=== PATIENT | female | born 1935 | race Caucasian/White ===

== ENCOUNTER → 2016-04-24 | Outpatient (REF) | payer MEDICARE, MEDICAID ==
[~2016-04-24] MED LIST: /WARF25TA PO; ACET50TA PO; AMILORIDE HCL PO; ASTE137S; AZELASTINE; CALCTAB68 PO; COUM2.5T11 PO; FERG1TAB PO; FOLITAB11 PO; HYDR10TA20 PO; LIDOCAINE CREAM TOP; LORATADINE PO; METH2.5TA PO; MILKSUS PO; MIRA3350 PO; NEURONTIN PO; NORT10SO PO; PERC10TA PO; PERC10TA17 PO; PERCOCET PO; RANITIDINE PO; REQU2TAB3 PO; SENO8.6T10 PO; SIMVPOW2 PO; ULTR50TA PO; XANA0.25 PO; ZOLO100T PO; ZOLO50TA PO
== END ==
LOC: M LAB REF 16:21
PROVIDERS: ATTEND Internal Medicine
DX: M05.70 Rheumatoid arthritis with rheumatoid factor of unspecified site without organ or systems involvement (principal)

== ENCOUNTER → 2016-07-05 | Outpatient (REF) | payer MEDICARE, MEDICAID | LOC: M LAB REF 13:02 | PROVIDERS: ATTEND Internal Medicine | DX: M15.9 Polyosteoarthritis, unspecified (principal); M05.70 Rheumatoid arthritis with rheumatoid factor of unspecified site without organ or systems involvement ==

== ENCOUNTER → 2016-08-22 | Outpatient (REF) | payer MEDICARE, MEDICAID | LOC: M LAB REF 12:17 | PROVIDERS: ATTEND Internal Medicine | DX: M15.9 Polyosteoarthritis, unspecified (principal); M05.70 Rheumatoid arthritis with rheumatoid factor of unspecified site without organ or systems involvement ==

== ENCOUNTER → 2016-10-03 | Outpatient (REF) | payer MEDICARE, MEDICAID | LOC: M LAB REF 12:48 | PROVIDERS: ATTEND Internal Medicine | DX: M15.9 Polyosteoarthritis, unspecified (principal); M05.70 Rheumatoid arthritis with rheumatoid factor of unspecified site without organ or systems involvement ==

== ENCOUNTER → 2016-11-05 | Outpatient (REF) | payer MEDICARE, MEDICAID ==
[~2016-11-05] MED LIST changes: -COUM2.5T11 PO; +COUM2.5T17 PO; -PERC10TA17 PO; +PERC10TA26 PO; -ULTR50TA PO; +ULTR50TA8 PO
== END ==
LOC: M LAB REF 17:29
PROVIDERS: ATTEND Internal Medicine
DX: M15.9 Polyosteoarthritis, unspecified (principal); M05.70 Rheumatoid arthritis with rheumatoid factor of unspecified site without organ or systems involvement

== ENCOUNTER → 2017-04-24 | Outpatient (REF) | payer OTHER, MEDICAID | LOC: M LAB REF 13:50 | DX: R74.9 Abnormal serum enzyme level, unspecified (principal); E88.09 Other disorders of plasma-protein metabolism, not elsewhere classified | CPT/HCPCS: 83520 ==

== ENCOUNTER → 2019-03-03 | Outpatient (REF) | payer OTHER, MEDICAID ==
[~2019-03-03] MED LIST changes: -/WARF25TA PO; -ACET50TA PO; +COUM1TAB18 PO; -FERG1TAB PO; +FERG27TA PO; +MAPA500T17 PO; +METH2.5T48 PO; -METH2.5TA PO; +MILK120011 PO; -MILKSUS PO
[2019-03-03 14:00] LABS: PERCENT SATURATION 15.9 % (13.2-45.0)
== END ==
LOC: M LAB REF 12:41
PROVIDERS: ATTEND Internal Medicine
DX: D50.9 Iron deficiency anemia, unspecified (principal)

== ENCOUNTER → 2020-08-12 | Outpatient (REF) | payer MEDICARE, MEDICAID ==
[2020-08-12 18:10] LABS: PERCENT SATURATION 18.6 % (13.2-45.0)
== END ==
LOC: M LAB REF 16:42
PROVIDERS: ATTEND Internal Medicine
DX: D50.9 Iron deficiency anemia, unspecified (principal)

== ENCOUNTER 2021-03-03 12:29 | Inpatient (IN) | payer MEDICARE, MEDICAID ==
[~2021-03-03] VITALS: Ht 154.9 cm; Wt 81.9 kg
[2021-03-03 13:10] LABS: BASO % 0.1 % (0.0-1.0); HEMATOCRIT 43.6 % (36.0-47.0); HEMOGLOBIN 13.9 g/dl (12.0-15.5); LYMPH # 0.6 10^3/uL (1.5-5.0); LYMPH % 2.2 % (24.0-44.0); MEAN CORPUSCULAR HEMOGLOBIN 28.3 pg (27.0-33.0); MEAN CORPUSCULAR HGB CONC 31.9 g/dl (32.0-36.5); MEAN CORPUSCULAR VOLUME 88.6 fl (80.0-96.0); MONO # 0.7 10^3/uL (0.0-0.8); MONO % 2.7 % (2.0-8.0); NEUTROPHILS # 25.3 10^3/uL (1.5-8.5); PLATELET COUNT, AUTOMATED 531 10^3/uL (150-450); RED BLOOD COUNT 4.92 10^6/uL (4.00-5.40)
--- NOTE | 2021-03-03 13:11 | REP ---
INDICATION: Syncope COMPARISON: None. TECHNIQUE: Axial noncontrast images from the skull base to the thoracic inlet with coronal reformations. This CT examination was performed using the following dose reduction techniques: Automated exposure control, adjustment of mA and/or kv according to the patient's size, and use of iterative reconstruction technique. FINDINGS: Atrophy with periventricular leukomalacia and microvascular ischemic changes are appreciated. The ventricles and sulci are symmetric. Lester-white differentiation is maintained. There is no evidence for acute intracranial hemorrhage, mass/mass effect, pathology or infarction. No extra-axial fluid collection. Calvarium is intact. Paranasal sinuses and mastoid air cells are clear. IMPRESSION: Atrophy and microvascular ischemic changes. No acute intracranial hemorrhage, infarction, or mass/mass effect. <Electronically signed by Collins Chapman > 03/03/21 [id number]
--- NOTE | 2021-03-03 13:14 | REP ---
INDICATION: Syncope COMPARISON: None. TECHNIQUE: Axial noncontrast images from the skull base to the thoracic inlet with coronal and sagittal re-formations This CT examination was performed using the following dose reduction techniques: Automated exposure control, adjustment of mA and/or kv according to the patient's size, and use of iterative reconstruction technique. FINDINGS: Age-related degenerative changes primarily involving C5-6. Alignment is relatively maintained. There is no evidence for acute fracture/compression injury or subluxation. Spinal canal is patent. Posterior elements demonstrate facet arthropathy. Spinous processes are intact. Paravertebral soft tissues are normal. IMPRESSION: Multilevel degenerative changes primarily involving C5-6. No acute fracture/compression injury or acute subluxation. <Electronically signed by Collins Chapman > 03/03/21 0230
[2021-03-03 13:45] LABS: CK-MB VALUE MASS 7.4 NG/ML (<3.6); MB/CK RELATIVE INDEX 0.95 (< OR =4); TROPONIN I 0.02 NG/ML (< 0.10)
[2021-03-03 13:51] LABS: CALCIUM LEVEL 9.2 MG/DL (8.8-10.2); CREATININE FOR GFR 1.14 MG/DL (0.55-1.30); FREE T4 1.47 NG/DL (0.76-1.46); GLOMERULAR FILTRATION RATE 48.2 (>32); POTASSIUM SERUM 3.1 MEQ/L (3.5-5.1); THYROID STIMULATING HORMONE 2.92 uIU/ML (0.358-3.740)
--- NOTE | 2021-03-03 13:56 | REP ---
INDICATION: Syncope/near-syncope;trauma COMPARISON: None. TECHNIQUE: AP, lateral, bilateral oblique views of the right and left knee. FINDINGS: Bilateral arthroplasty noted along with age-related osteopenia. There is no evidence for acute fracture or dislocation. No obvious effusion. IMPRESSION: No evidence for acute fracture or dislocation. <Electronically signed by Collins Chapman > 03/03/21 2336
--- NOTE | 2021-03-03 13:57 | REP ---
INDICATION: Syncope/near-syncope;trauma COMPARISON: None. TECHNIQUE: AP and lateral views of the left humerus. FINDINGS: Age-related degenerative changes at the shoulder joint. No acute fracture or dislocation. No subcutaneous emphysema or foreign body. IMPRESSION: . No acute fracture or dislocation. <Electronically signed by Collins Chapman > 03/03/21 0122
--- NOTE | 2021-03-03 13:58 | REP ---
INDICATION: Syncope/near-syncope COMPARISON: 06/24/2014 TECHNIQUE: Portable AP view of the chest FINDINGS: Cardiac silhouette is upper limits of normal. Lung rodrigues demonstrate advanced emphysematous changes. Superimposed right lower lobe airspace disease and small pleural effusion cannot be excluded. No pneumothorax. Skeletal structures demonstrate osteopenia and degenerative changes. IMPRESSION: Right lower lobe airspace disease and possible small pleural effusion. <Electronically signed by Collins Chapman > 03/03/21 [id number]
--- NOTE | 2021-03-03 14:00 | REP ---
INDICATION: Syncope/near-syncope;trauma. COMPARISON: None TECHNIQUE: Four views FINDINGS: There is no acute fracture, dislocation, subluxation, or joint effusion. IMPRESSION: No evidence of an acute osseous abnormality <Electronically signed by Payam Redman > 03/03/21 0497
--- NOTE | 2021-03-03 14:01 | REP ---
INDICATION: Syncope/near-syncope;trauma COMPARISON: None. TECHNIQUE: AP and lateral left forearm FINDINGS: Advanced degenerative changes at the wrist. Radius and ulna appear intact and without acute fracture or dislocation. IMPRESSION: Advanced degenerative changes at the wrist. No acute fracture or dislocation. <Electronically signed by Collins Chapman > 03/03/21 [id number]
--- NOTE | 2021-03-03 14:15 | REP ---
INDICATION: Syncope/near-syncope. COMPARISON: None. TECHNIQUE: Neutral and frog-lateral views of the right and left hip. 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 Left hip: Severe arthritic changes and chronic deformity including complete loss of normal joint space and chronic malpositioning. No evidence for acute fracture or dislocation. IMPRESSION: No acute fracture or dislocation. <Electronically signed by Collins Chapman > 03/03/21 3478
--- OUTSIDE RECORDS SUMMARY | 2021-03-03 14:18 | CCD | Continuity of Care Document ---
Author Author Sallie LENTZ Organization Unknown Address [address] [facility] [address] [place] [address] Phone [phone] Care Team Providers [employer] Repairer Name Role Phone Sharita Jensen AUTM [phone] Kit Garcia MD AUTM [phone] Jeanette Lentz DO AUTM Unavailable Isidoro De Jesus DPM AUTM [phone] [facility] - Test Preparation Tutor AUTM [phone] Problems Active Problems Provider Date Hyperlipidemia Jeanette Lentz DO Onset: 02/27/2011 Degenerative joint disease of pelvis Jeanette Lentz DO Ons et: 02/27/2011 Osteoarthritis of knee Jeanette Lentz DO Onset: 02/27/2011 Generalized anxiety disorder Jeanette Lentz DO Onset: 02/13 Social History Type Date Description Comments Sex Unknown ETOH Use Denies alcohol use Tobacco Use Start: Unknown End: Unknown Patient is a former smoker SMOKED X 10 YRS, QUIT 1970 Allergies and adverse reactions Active Allergies Criticality Reaction | Severity Comments Date Flu Virus Vaccine Unable to assess criticality REDNESS AT INJECTION SITE, PER PT 01/27/2010 Inactive Allergies NKDA Unable to assess criticality 04/20/2009 Medications Active Medications SIG Qnty Indications Ordering Provide r Date Torsemide 20mg Tablets 2 by mouth every day 60tabs Jeanette Lentz DO 02/17/2021 Potassium Chloride ER 10Meq Tablet s ER take two tablets by mouth once a day 120tabs Jeanette Lentz DO 06/24/2020 Calcium + D3 600-200 Tablets 1 po qd Jeanette Lentz DO 03/03/2019 Famotidine 20mg Tablets Take One Tablet By Mouth Every Day 30tabs Jeanette LentzDO 03/03/2019 Pramipexole Dihydrochloride 1mg Ta blets Take One Tablet By Mouth AT Night Before Bedtime 30tabs Jeanette Lentz,DO 11/17/2018 Sertraline HCL 50mg Tablets Take One Tablet By Mouth Every Day 30tabs Jeanette Lentz,DO 2018 Prednisone 5mg Tablets Take One Tablet By Mouth Every Other Day 45tabs Jeanette LentzDO 02/14/2018 Metolazone 2.5mg Tablets take 1 tablet by mouth every saturday and saturday 8tabs Jeanette LentzDO Attends [facility] Large M [facility] certanty brand change three times a day and as needed 100units R32 Jeanette LentzDO 09/23/2015 N39.41 N18.9 Spironolactone 25mg Tablets Take One Tablet By Mouth Twice A Day 60tabs Jeanette LentzDO 12/2015 Compression Stockings 20-30 bilateral knee-high compression stockings. 20-30mm dx: q82.0 1units Beau Alan D.O. 01/25/2015 Gabapentin 400mg Capsules Take One Capsule By Mouth Three Times A Day 90caps Jeanette LentzDO 01/13 Voltaren 1% Gel apply up to 4 grams three times a day as needed 60gm Jeanette LentzDO 12/15/2014 Tylenol 325mg Tablets 2 tabs every 4 hours as needed pain or fever Jeanette LentzDO 07/02/19 15 Folic Acid 1mg Tablets Take One Tablet By Mouth Every Day 30tabs Jeanette LentzDO 07/01/2014 Ferrous Gluconate 324(38Fe) mg Tab lets Take One Tablet By Mouth Every Day 30tabs Gerardo Xiao O 11/20/2013 Loratadine 10mg Tablets take one tablet by mouth every day 90tabs Osmar Hagen M.D. 04/20/2009 Arava 20mg Tablets 1 b y mouth every day 30tabs Jeanette LentzDO Immunizations CPT Code Status Date Vaccine Lot # [id number] Given 07/05/2016 Pneumovax 23 [id number] Refused 02/17/2021 Influenza Vaccin e Quadrivalent Preser/Antibiotic Free Im Use [id number] Refused 03/11/2017 Influenza Vaccin e Quadrivalent Preser/Antibiotic Free Im Use Vital Signs Date Vital Result Comment 02/17/2021 9:30am BP Systolic 102 mmHg BP Diastolic 60 mmHg Heart Rate 67 /min Height 60 inches 5'0" 08/12/2020 9:25am BP Systolic 102 mmHg BP Diastolic 60 mmHg Heart Rate 72 /min Height 60 inches 5'0" Weight 184.00 lb wt at home O2 % BldC Oximetry 91 % RM Air BMI (Body Mass Index) 35.9 kg/m2 Results Test Acquired Date Facility Test Result H/L Range Note Laboratory test finding 02/17/2021 kaleb Hernández Systematic Theology Professor: Dr Tom Ellis [place] [id number] [phone] B-Type Natriuretic Peptide 74.4 pg/mL 0.0 - 100.0 Procedures Date Code Description Status 01/10/2021 10124 Chronic Care MGMT 20 Mins Clinical Staff Time Per Calendar Month Completed 11/14/2020 09610 Chronic Care MGMT 20 Mins Clinical Staff Time Per Calendar Month Completed 10/13/2020 13142 Chronic Care MGMT 20 Mins Clinical Staff Time Per Calendar Month Completed 09/27/2020 36808 Complex Chronic Care MGMT Servic e Ea Addl 30 Min Completed 09/27/2020 77503 Complex Chronic Care Management SVC 1St 60 Min Completed 09/09/2020 93463 Complex Chronic Care MGMT Servic e Ea Addl 30 Min Completed 09/09/2020 15540 Complex Chronic Care Management SVC 1St 60 Min Completed 10/06/2019 426591345 Diabetic Retinal Eye Exam Comple isis 08/07/2017 [id number] Diabetic Retinal Eye Exam Comple isis 07/19/2017 [id number] Diabetic Retinal Eye Exam Comple isis 07/11/2017 520899204 Diabetic Retinal Eye Exam Comple [facility] 01/03/2016 398043259 Diabetic Foot Exam Completed 03/01/2010 [id number] Mammogram Completed 01/05/2010 [id number] Colonoscopy Completed 02/25/2009 [id number] Mammogram Completed 07/31/2006 [id number] Bone Mineral Density Test Comple [facility] Medical Devices Description No Information Available Encounters Description No Information Available Assessments Date Code Description Provider 02/17/2021 I50.33 Acute on chronic diastolic (jose estive) heart failure Jeanette Lentz,DO 02/17/2021 M06.9 Rheumatoid arthritis, unspecifie d Jeanette Lentz,DO 02/17/2021 G25.81 Restless legs syndrome Jeanette stevenson,DO 02/17/2021 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 Jeanette Lentz,DO 02/17/2021 D50.9 Iron deficiency anemia, unspecif ied Jeanette Lentz,DO 02/17/2021 N18.31 Chronic kidney disease, stage 3a Jeanette Lentz,DO 02/17/2021 M15.9 Polyosteoarthritis, unspecified Jeanette Lentz,DO 02/17/2021 R26.2 Difficulty in walking, not elsew here classified Jeanette Lentz,DO 01/10/2021 E55.9 Vitamin D deficiency, unspecifie d Jeanette Lentz,DO 01/10/2021 E78.5 Hyperlipidemia, unspecified Cesar ahsan Lentz,DO 01/10/2021 M06.9 Rheumatoid arthritis, unspecifie d Jeanette Lentz,DO 11/14/2020 I50.32 Chronic diastolic (congestive) h eart failure Jeanette Lentz,DO 11/14/2020 E78.5 Hyperlipidemia, unspecified Cesar a Carmella,DO 11/14/2020 G25.81 Restless legs syndrome Jeanette stevenson,DO 10/13/2020 E55.9 Vitamin D deficiency, unspecifie d Jeanette Lentz,DO 10/13/2020 I50.32 Chronic diastolic (congestive) h eart failure Jeanette Lentz,DO 10/13/2020 E78.5 Hyperlipidemia, unspecified Cesar a Carmella,DO 09/27/2020 E55.9 Vitamin D deficiency, unspecifie d Jeanette Lentz,DO 09/27/2020 I50.32 Chronic diastolic (congestive) h eart failure Jeanette Lentz,DO 09/27/2020 E78.5 Hyperlipidemia, unspecified Cesar a Carmella,DO 09/27/2020 G25.81 Restless legs syndrome Jeanette Rust ,DO 09/09/2020 E55.9 Vitamin D deficiency, unspecifie d Jeanette Lentz DO 09/09/2020 I50.32 Chronic diastolic (congestive) h eart failure Jeanette Lentz DO 09/09/2020 E78.5 Hyperlipidemia, unspecified Cesar Lentz DO 09/09/2020 G25.81 Restless legs syndrome Jeanette stevenson DO Plan of Treatment Future Appointment(s):* 03/07/2021 10:00 am - Jeanette Lentz DO at [facility] 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
--- OUTSIDE RECORDS SUMMARY | 2021-03-03 14:18 | CCD ---
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 Name Role Phone Carmella, Jeanette DO Unavailable Unavailable Carmella, Jeanette DO Unavailable Unavailable Carmella, Jeanette DO Unavailable Unavailable Carmella, Jeanette DO Unavailable Unavailable Carmella, Jeanette DO Unavailable Unavailable Carmella, Jeanette DO Unavailable Unavailable Carmella, Jeanette DO Unavailable Unavailable Carmella, Jeanette DO Unavailable Unavailable Carmella, Jeanette DO Unavailable Unavailable Carmella, Jeanette DO Unavailable Unavailable Carmella, Jeanette DO Unavailable Unavailable Carmella, Jeanette DO Unavailable Unavailable Carmella, Jeanette DO Unavailable Unavailable Carmella, Jeanette DO Unavailable Unavailable Carmella, Jeanette DO Unavailable Unavailable Carmella, Jeanette DO Unavailable Unavailable Carmella, Jeanette DO Unavailable Unavailable Carmella, Jeanette DO Unavailable Unavailable Carmella, Jeanette DO Unavailable Unavailable Carmella, Jeanette DO Unavailable Unavailable Carmella, Jeanette DO Unavailable Unavailable Carmella, Jeanette DO Unavailable Unavailable Carmella, Jeanette DO Unavailable Unavailable Carmella, Jeanette DO Unavailable Unavailable Carmella, Jeanette DO Unavailable Unavailable Carmella, Jeanette DO Unavailable Unavailable Carmella, Jeanette DO Unavailable Unavailable Carmella, Jeanette DO Unavailable Unavailable Carmella, Jeanette DO Unavailable Unavailable Carmella, Jeanette DO Unavailable Unavailable Carmella, Jeanette DO Unavailable Unavailable Carmella, Jeanette DO Unavailable Unavailable Carmella, Jeanette DO Unavailable Unavailable Carmella, Jeanette DO Unavailable Unavailable Carmella, Jeanette DO Unavailable Unavailable Carmella, Jeanette DO Unavailable Unavailable Carmella, Jeanette DO Unavailable Unavailable Carmella, Jeanette DO Unavailable Unavailable Carmella, Jeanette DO Unavailable Unavailable Carmella, Jeanette DO Unavailable Unavailable Carmella, Jeanette DO Unavailable Unavailable Carmella, Jeanette DO Unavailable Unavailable Carmella, Jeanette DO Unavailable Unavailable Carmella, Jeanette DO Unavailable Unavailable Carmella, Jeanette DO Unavailable Unavailable Carmella, Jeanette DO Unavailable Unavailable Carmella, Jeanette DO Unavailable Unavailable Carmella, Jeanette DO Unavailable Unavailable Carmella, Jeanette DO Unavailable Unavailable Carmella, Jeanette DO Unavailable Unavailable Carmella, Jeanette DO Unavailable Unavailable Carmella, Jeanette DO Unavailable Unavailable Carmella, Jeanette DO Unavailable Unavailable Carmella, Jeanette DO Unavailable Unavailable Carmella, Jeanette DO Unavailable Unavailable Carmella, Jeanette DO Unavailable Unavailable Carmella, Jeanette DO Unavailable Unavailable Carmella, Jeanette DO Unavailable Unavailable Carmella, Jeanette DO Unavailable Unavailable Carmella, Jeanette DO Unavailable Unavailable Carmella, Jeanette DO Unavailable Unavailable Carmella, Jeanette DO Unavailable Unavailable Carmella, Jeanette DO Unavailable Unavailable Carmella, Jeanette DO Unavailable Unavailable Carmella, Jeanette DO Unavailable Unavailable Acrmella, Jeanette DO Unavailable Unavailable Carmella, Jeanette DO Unavailable Unavailable Carmella, Jeanette DO Unavailable Unavailable Carmella, Jeanette DO Unavailable Unavailable Carmella, Jeanette DO Unavailable Unavailable Carmella, Jeanette DO Unavailable Unavailable Carmella, Jeanette DO Unavailable Unavailable Carmella, Jeanette DO Unavailable Unavailable Carmella, Jeanette DO Unavailable Unavailable Re-disclosure Warning The records that you are about to access may contain information from federally-assisted alcohol or drug abuse programs. If such information is present, then the following federally mandated warning applies: This information has been disclosed to you from records protected by federal confidentiality rules (42 CFR part 2). The federal rules prohibit you from making any further disclosure of this information unless further disclosure is expressly permitted by the written consent of the person to whom it pertains or as otherwise permitted by 42 CFR part 2. A general authorization for the release of medical or other information is NOT sufficient for this purpose. The Federal rules restrict any use of the information to criminally investigate or prosecute any alcohol or drug abuse patient.The records that you are about to access may contain highly sensitive health information, the redisclosure of which is protected by Article 27-F of the [facility] Public Health law. If you continue you may have access to information: Regarding HIV / AIDS; Provided by facilities licensed or operated by the [facility] Office of Mental Health; or Provided by the [facility] Office for People With Developmental Disabilities. If such information is present, then the following [facility] mandated warning applies: This information has been disclosed to you from confidential records which are protected by state law. State law prohibits you from making any further disclosure of this information without the specific written consent of the person to whom it pertains, or as otherwise permitted by law. Any unauthorized further disclosure in violation of state law may result in a fine or [place] [facility] sentence or both. A general authorization for the release of medical or other information is NOT sufficient authorization for further disc losure. Family History Family Member Name Family Member Gender Family Member Status Date o f Status Description Data Source(s) Unknown Male Problem [facility] ([facility]) Encounters Encounter Providers Location Date Indications Data Source(s ) Outpatient Attender: Jeanette Zamora 08/12 09:40:00 AM EDT [facility] ([facility] ) Outpatient Attender: Jeanette Zamora 02/01 01:30:00 PM EDT [facility] ([facility] ) Immunizations Vaccine Date Status Description Data Source(s) Influenza, injectable, MDCK, preservative free, poppy valent 02/17/2021 09:33:00 AM EDT completed [facility]) COVID-19 VACCINE Moderna 08/31/2020 12:00:00 AM EDT completed IASIIS Vaccine Series Complete: YESThis Data wa s Submitted to [facility] Via [employer]. COVID-19 VACCINE Moderna 08/03/2020 12:00:00 AM EDT completed IASIIS Vaccine Series Complete: NOThis Data was Submitted to [facility] Via [employer]. Medications Medication Brand Name Start Date Product Form Dose Route Admi nistrative Instructions Pharmacy Instructions Status Indications Reaction Description Data Source(s) Potassium Chloride 10 MEQ Extended Release Oral Tablet POTAS SIUM CHLORIDE 02/28/2021 12:00:00 AM EST tablet extended release 120 TAKE 2 TABLETS BY MOUTH ONCE A DAY TAKE 2 TABLETS BY MOUTH ONCE A DAY SOLD: 02/28/2021 [facility] torsemide 20 MG Oral Tablet Torsemide 02/17/2021 12:00:00 AM EDT ORAL active [facility] ([facility]) 20 mg 02/17/2021 12:00:00 AM EDT tablet 60 TAKE TWO TABLETS BY MOUTH EVERY DAY TAKE TWO TABLETS BY MOUTH EVERY DAY SOLD: 02/18/2021 [facility] 2.5 mg 02/17/2021 12:00:00 AM EDT tablet 8 TAKE 1 TABLET BY MOUTH EVERY SATURDAY AND SATURDAY TAKE 1 TABLET BY MOUTH EVERY SATURDAY AND SATURDAY SOLD: 02/18/2021 [facility] 50 mg 01/10/2021 12:00:00 AM EDT tablet 30 TAKE ONE TABLET BY MOUTH EVERY DAY TAKE ONE TABLET BY MOUTH EVERY DAY SOLD: 01/10/2021 [facility] 400 mg 01/10/2021 12:00:00 AM EDT capsule 90 TAKE ONE CAPSULE BY MOUTH THREE TIMES A DAY TAKE ONE CAPSULE BY MOUTH THREE TIMES A DAY SOLD: 01/10/2021 [facility] 25 mg 01/10/2021 12:00:00 AM EDT tablet 60 TAKE ONE TABLET BY MOUTH TWICE A DAY TAKE ONE TABLET BY MOUTH TWICE A DAY SOLD: 02/07/2021 [facility] 50 mg 01/10/2021 12:00:00 AM EDT tablet 30 TAKE ONE TABLET BY MOUTH EVERY DAY TAKE ONE TABLET BY MOUTH EVERY DAY SOLD: 02/07/2021 [facility] 25 mg 01/10/2021 12:00:00 AM EDT tablet 60 TAKE ONE TABLET BY MOUTH TWICE A DAY TAKE ONE TABLET BY MOUTH TWICE A DAY SOLD: 01/10/2021 [facility] 400 mg 01/10/2021 12:00:00 AM EDT capsule 90 TAKE ONE CAPSULE BY MOUTH THREE TIMES A DAY TAKE ONE CAPSULE BY MOUTH THREE TIMES A DAY SOLD: 02/07/2021 [facility] 5 mg 12/30/2020 12:00:00 AM EDT tablet 45 TAKE ONE TABLET BY MOUTH EVERY OTHER DAY TAKE ONE TABLET BY MOUTH EVERY OTHER DAY SOLD: 01/01/2021 [facility] 324 mg (38 mg iron) 12/15/2020 12:00:00 AM EDT tablet 30 TAKE ONE TABLET BY MOUTH EVERY DAY TAKE ONE TABLET BY MOUTH EVERY DAY SOLD: 02/19/2021 [facility] 324 mg (38 mg iron) 12/15/2020 12:00:00 AM EDT tablet 30 TAKE ONE TABLET BY MOUTH EVERY DAY TAKE ONE TABLET BY MOUTH EVERY DAY SOLD: 01/12/2021 [facility] 324 mg (38 mg iron) 12/15/2020 12:00:00 AM EDT tablet 30 TAKE ONE TABLET BY MOUTH EVERY DAY TAKE ONE TABLET BY MOUTH EVERY DAY SOLD: 01/25/2021 [facility] 324 mg (38 mg iron) 12/15/2020 12:00:00 AM EDT tablet 30 TAKE ONE TABLET BY MOUTH EVERY DAY TAKE ONE TABLET BY MOUTH EVERY DAY SOLD: 12/15/2020 [facility] Famotidine 20 MG Oral Tablet FAMOTIDINE 12/13/2020 12:00:00 AM EDT tab let 30 TAKE ONE TABLET BY MOUTH EVERY DAY TAKE ONE TABLET BY MOUTH EVERY DAY SOLD: 01/10/2021 [facility] Famotidine 20 MG Oral Tablet FAMOTIDINE 12/13/2020 12:00:00 AM EDT tab let 30 TAKE ONE TABLET BY MOUTH EVERY DAY TAKE ONE TABLET BY MOUTH EVERY DAY SOLD: 12/13/2020 [facility] Famotidine 20 MG Oral Tablet FAMOTIDINE 12/13/2020 12:00:00 AM EDT tab let 30 TAKE ONE TABLET BY MOUTH EVERY DAY TAKE ONE TABLET BY MOUTH EVERY DAY SOLD: 02/07/2021 [facility] Potassium Chloride 10 MEQ Extended Release Oral Tablet POTAS SIUM CHLORIDE 12/12/2020 12:00:00 AM EDT tablet extended release 120 TAKE TWO TABLETS BY MOUTH TWICE A DAY TAKE TWO TABLETS BY MOUTH TWICE A DAY SOLD: 12/13/2020 [facility] Potassium Chloride 10 MEQ Extended Release Oral Tablet POTAS SIUM CHLORIDE 12/12/2020 12:00:00 AM EDT tablet extended release 120 TAKE TWO TABLETS BY MOUTH TWICE A DAY TAKE TWO TABLETS BY MOUTH TWICE A DAY SOLD: 02/07/2021 [facility] Potassium Chloride 10 MEQ Extended Release Oral Tablet POTAS SIUM CHLORIDE 12/12/2020 12:00:00 AM EDT tablet extended release 120 TAKE TWO TABLETS BY MOUTH TWICE A DAY TAKE TWO TABLETS BY MOUTH TWICE A DAY SOLD: 01/10/2021 [facility] 1 mg 11/03/2020 12:00:00 AM EDT tablet 30 TAKE ONE TABLET BY MOUTH EVERY DAY TAKE ONE TABLET BY MOUTH EVERY DAY SOLD: 11/03/2020 [facility] 1 mg 11/03/2020 12:00:00 AM EDT tablet 30 TAKE ONE TABLET BY MOUTH EVERY DAY TAKE ONE TABLET BY MOUTH EVERY DAY SOLD: 01/29/2021 [facility] 1 mg 11/03/2020 12:00:00 AM EDT tablet 30 TAKE ONE TABLET BY MOUTH EVERY DAY TAKE ONE TABLET BY MOUTH EVERY DAY SOLD: 02/26/2021 [facility] 1 mg 11/03/2020 12:00:00 AM EDT tablet 30 TAKE ONE TABLET BY MOUTH EVERY DAY TAKE ONE TABLET BY MOUTH EVERY DAY SOLD: 12/29/2020 [facility] 1 mg 11/03/2020 12:00:00 AM EDT tablet 30 TAKE ONE TABLET BY MOUTH EVERY DAY TAKE ONE TABLET BY MOUTH EVERY DAY SOLD: 12/01/2020 [facility] 2.5 mg 10/31/2020 12:00:00 AM EDT tablet 4 TAKE 1 TABLET BY MOUTH EVERY SATURDAY TAKE 1 TABLET BY MOUTH EVERY SATURDAY SOLD: 11/22/2020 [facility] 2.5 mg 10/31/2020 12:00:00 AM EDT tablet 4 TAKE 1 TABLET BY MOUTH EVERY SATURDAY TAKE 1 TABLET BY MOUTH EVERY SATURDAY SOLD: 01/03/2021 [facility] 2.5 mg 10/31/2020 12:00:00 AM EDT tablet 4 TAKE 1 TABLET BY MOUTH EVERY SATURDAY TAKE 1 TABLET BY MOUTH EVERY SATURDAY SOLD: 11/01/2020 [facility] 2.5 mg 10/31/2020 12:00:00 AM EDT tablet 4 TAKE 1 TABLET BY MOUTH EVERY SATURDAY TAKE 1 TABLET BY MOUTH EVERY SATURDAY SOLD: 12/13/2020 [facility] 1 mg 10/13/2020 12:00:00 AM EDT tablet 30 TAKE ONE TABLET BY MOUTH AT NIGHT BEFORE BEDTIME TAKE ONE TABLET BY MOUTH AT NIGHT BEFORE BEDTIME SOLD: 02/07/2021 [facility] 1 mg 10/13/2020 12:00:00 AM EDT tablet 30 TAKE ONE TABLET BY MOUTH AT NIGHT BEFORE BEDTIME TAKE ONE TABLET BY MOUTH AT NIGHT BEFORE BEDTIME SOLD: 01/10/2021 [facility] 1 mg 10/13/2020 12:00:00 AM EDT tablet 30 TAKE ONE TABLET BY MOUTH AT NIGHT BEFORE BEDTIME TAKE ONE TABLET BY MOUTH AT NIGHT BEFORE BEDTIME SOLD: 10/13/2020 [facility] 1 mg 10/13/2020 12:00:00 AM EDT tablet 30 TAKE ONE TABLET BY MOUTH AT NIGHT BEFORE BEDTIME TAKE ONE TABLET BY MOUTH AT NIGHT BEFORE BEDTIME SOLD: 12/13/2020 [facility] 1 mg 10/13/2020 12:00:00 AM EDT tablet 30 TAKE ONE TABLET BY MOUTH AT NIGHT BEFORE BEDTIME TAKE ONE TABLET BY MOUTH AT NIGHT BEFORE BEDTIME SOLD: 11/13/2020 [facility] 80 mg 10/11/2020 12:00:00 AM EDT tablet 120 TAKE 1TAB.BY MOUTH 2X/DAY & FOR INCREASED EDEMA TAKE EXTRA DOSE EVERY OTHER DAY TAKE 1TAB.BY MOUTH 2X/DAY & FOR INCREASED EDEMA TAKE EXTRA DOSE EVERY OTHER DAY SOLD: 12/20/2020 [facility] 80 mg 10/11/2020 12:00:00 AM EDT tablet 120 TAKE 1TAB.BY MOUTH 2X/DAY & FOR INCREASED EDEMA TAKE EXTRA DOSE EVERY OTHER DAY TAKE 1TAB.BY MOUTH 2X/DAY & FOR INCREASED EDEMA TAKE EXTRA DOSE EVERY OTHER DAY SOLD: 10/11/2020 [facility] Potassium Chloride 10 MEQ Extended Release Oral Tablet POTAS SIUM CHLORIDE 09/17/2020 12:00:00 AM EDT tablet extended release 120 TAKE TWO TABLETS BY MOUTH TWICE A DAY TAKE TWO TABLETS BY MOUTH TWICE A DAY SOLD: 09/17/2020 [facility] 400 mg 09/17/2020 12:00:00 AM EDT capsule 90 TAKE ONE CAPSULE BY MOUTH THREE TIMES A DAY TAKE ONE CAPSULE BY MOUTH THREE TIMES A DAY SOLD: 12/13/2020 [facility] 400 mg 09/17/2020 12:00:00 AM EDT capsule 90 TAKE ONE CAPSULE BY MOUTH THREE TIMES A DAY TAKE ONE CAPSULE BY MOUTH THREE TIMES A DAY SOLD: 10/16/2020 [facility] Potassium Chloride 10 MEQ Extended Release Oral Tablet POTAS SIUM CHLORIDE 09/17/2020 12:00:00 AM EDT tablet extended release 120 TAKE TWO TABLETS BY MOUTH TWICE A DAY TAKE TWO TABLETS BY MOUTH TWICE A DAY SOLD: 11/13/2020 [facility] 400 mg 09/17/2020 12:00:00 AM EDT capsule 90 TAKE ONE CAPSULE BY MOUTH THREE TIMES A DAY TAKE ONE CAPSULE BY MOUTH THREE TIMES A DAY SOLD: 09/17/2020 [facility] 400 mg 09/17/2020 12:00:00 AM EDT capsule 90 TAKE ONE CAPSULE BY MOUTH THREE TIMES A DAY TAKE ONE CAPSULE BY MOUTH THREE TIMES A DAY SOLD: 11/13/2020 [facility] Potassium Chloride 10 MEQ Extended Release Oral Tablet POTAS SIUM CHLORIDE 09/17/2020 12:00:00 AM EDT tablet extended release 120 TAKE TWO TABLETS BY MOUTH TWICE A DAY TAKE TWO TABLETS BY MOUTH TWICE A DAY SOLD: 10/16/2020 [facility] 5 mg 07/07/2020 12:00:00 AM EDT tablet 45 TAKE ONE TABLET BY MOUTH EVERY OTHER DAY TAKE ONE TABLET BY MOUTH EVERY OTHER DAY SOLD: 07/07/2020 [facility] 5 mg 07/07/2020 12:00:00 AM EDT tablet 45 TAKE ONE TABLET BY MOUTH EVERY OTHER DAY TAKE ONE TABLET BY MOUTH EVERY OTHER DAY SOLD: 09/29/2020 [facility] 50 mg 06/28/2020 12:00:00 AM EDT tablet 30 TAKE ONE TABLET BY MOUTH EVERY DAY TAKE ONE TABLET BY MOUTH EVERY DAY SOLD: 07/26/2020 [facility] 50 mg 06/28/2020 12:00:00 AM EDT tablet 30 TAKE ONE TABLET BY MOUTH EVERY DAY TAKE ONE TABLET BY MOUTH EVERY DAY SOLD: 10/18/2020 [facility] 50 mg 06/28/2020 12:00:00 AM EDT tablet 30 TAKE ONE TABLET BY MOUTH EVERY DAY TAKE ONE TABLET BY MOUTH EVERY DAY SOLD: 08/23/2020 [facility] 50 mg 06/28/2020 12:00:00 AM EDT tablet 30 TAKE ONE TABLET BY MOUTH EVERY DAY TAKE ONE TABLET BY MOUTH EVERY DAY SOLD: 11/15/2020 [facility] 50 mg 06/28/2020 12:00:00 AM EDT tablet 30 TAKE ONE TABLET BY MOUTH EVERY DAY TAKE ONE TABLET BY MOUTH EVERY DAY SOLD: 09/20/2020 [facility] 50 mg 06/28/2020 12:00:00 AM EDT tablet 30 TAKE ONE TABLET BY MOUTH EVERY DAY TAKE ONE TABLET BY MOUTH EVERY DAY SOLD: 12/13/2020 [facility] 50 mg 06/28/2020 12:00:00 AM EDT tablet 30 TAKE ONE TABLET BY MOUTH EVERY DAY TAKE ONE TABLET BY MOUTH EVERY DAY SOLD: 06/28/2020 [facility] Potassium Chloride 10 MEQ Extended Release Oral Tablet POTAS SIUM CHLORIDE 06/24/2020 12:00:00 AM EST tablet extended release 120 TAKE TWO TABLETS BY MOUTH TWICE A DAY TAKE TWO TABLETS BY MOUTH TWICE A DAY SOLD: 06/24/2020 [facility] Potassium Chloride 10 MEQ Extended Release Oral Tablet Potas sium Chloride ER 06/24/2020 12:00:00 AM EST ORAL active [facility] ([facility]) 80 mg 06/24/2020 12:00:00 AM EST tablet 120 TAKE 1 TAB.BY MOUTH 2X/DAY;FOR INCREASED EDEMA TAKE EXTRA DOSE OF FUROSEMIDE EVERY OTHER DAY TAKE 1 TAB.BY MOUTH 2X/DAY;FOR INCREASED EDEMA TAKE EXTRA DOSE OF FUROSEMIDE EVERY OTHER DAY SOLD: 06/26/2020 [facility] 80 mg 06/24/2020 12:00:00 AM EST tablet 120 TAKE 1 TAB.BY MOUTH 2X/DAY;FOR INCREASED EDEMA TAKE EXTRA DOSE OF FUROSEMIDE EVERY OTHER DAY TAKE 1 TAB.BY MOUTH 2X/DAY;FOR INCREASED EDEMA TAKE EXTRA DOSE OF FUROSEMIDE EVERY OTHER DAY SOLD: 07/28/2020 [facility] Potassium Chloride 10 MEQ Extended Release Oral Tablet POTAS SIUM CHLORIDE 06/24/2020 12:00:00 AM EST tablet extended release 120 TAKE TWO TABLETS BY MOUTH TWICE A DAY TAKE TWO TABLETS BY MOUTH TWICE A DAY SOLD: 08/21/2020 [facility] Potassium Chloride 10 MEQ Extended Release Oral Tablet POTAS SIUM CHLORIDE 06/24/2020 12:00:00 AM EST tablet extended release 120 TAKE TWO TABLETS BY MOUTH TWICE A DAY TAKE TWO TABLETS BY MOUTH TWICE A DAY SOLD: 07/19/2020 [facility] 324 mg (38 mg iron) 06/14/2020 12:00:00 AM EST tablet 30 TAKE ONE TABLET BY MOUTH EVERY DAY TAKE ONE TABLET BY MOUTH EVERY DAY SOLD: 10/16/2020 [facility] 324 mg (38 mg iron) 06/14/2020 12:00:00 AM EST tablet 30 TAKE ONE TABLET BY MOUTH EVERY DAY TAKE ONE TABLET BY MOUTH EVERY DAY SOLD: 09/17/2020 [facility] 324 mg (38 mg iron) 06/14/2020 12:00:00 AM EST tablet 30 TAKE ONE TABLET BY MOUTH EVERY DAY TAKE ONE TABLET BY MOUTH EVERY DAY SOLD: 08/21/2020 [facility] 324 mg (38 mg iron) 06/14/2020 12:00:00 AM EST tablet 30 TAKE ONE TABLET BY MOUTH EVERY DAY TAKE ONE TABLET BY MOUTH EVERY DAY SOLD: 06/14/2020 [facility] 324 mg (38 mg iron) 06/14/2020 12:00:00 AM EST tablet 30 TAKE ONE TABLET BY MOUTH EVERY DAY TAKE ONE TABLET BY MOUTH EVERY DAY SOLD: 07/19/2020 [facility] 324 mg (38 mg iron) 06/14/2020 12:00:00 AM EST tablet 30 TAKE ONE TABLET BY MOUTH EVERY DAY TAKE ONE TABLET BY MOUTH EVERY DAY SOLD: 11/15/2020 [facility] 1 mg 06/02/2020 12:00:00 AM EST tablet 30 TAKE ONE TABLET BY MOUTH AT NIGHT BEFORE BEDTIME TAKE ONE TABLET BY MOUTH AT NIGHT BEFORE BEDTIME SOLD: 06/26/2020 [facility] 1 mg 06/02/2020 12:00:00 AM EST tablet 30 TAKE ONE TABLET BY MOUTH AT NIGHT BEFORE BEDTIME TAKE ONE TABLET BY MOUTH AT NIGHT BEFORE BEDTIME SOLD: 09/15/2020 [facility] 1 mg 06/02/2020 12:00:00 AM EST tablet 30 TAKE ONE TABLET BY MOUTH AT NIGHT BEFORE BEDTIME TAKE ONE TABLET BY MOUTH AT NIGHT BEFORE BEDTIME SOLD: 07/24/2020 [facility] 1 mg 06/02/2020 12:00:00 AM EST tablet 30 TAKE ONE TABLET BY MOUTH AT NIGHT BEFORE BEDTIME TAKE ONE TABLET BY MOUTH AT NIGHT BEFORE BEDTIME SOLD: 06/02/2020 [facility] 1 mg 06/02/2020 12:00:00 AM EST tablet 30 TAKE ONE TABLET BY MOUTH AT NIGHT BEFORE BEDTIME TAKE ONE TABLET BY MOUTH AT NIGHT BEFORE BEDTIME SOLD: 08/20/2020 [facility] 400 mg 05/31/2020 12:00:00 AM EST capsule 90 TAKE ONE CAPSULE BY MOUTH THREE TIMES A DAY TAKE ONE CAPSULE BY MOUTH THREE TIMES A DAY SOLD: 08/21/2020 [facility] 400 mg 05/31/2020 12:00:00 AM EST capsule 90 TAKE ONE CAPSULE BY MOUTH THREE TIMES A DAY TAKE ONE CAPSULE BY MOUTH THREE TIMES A DAY SOLD: 07/26/2020 [facility] 400 mg 05/31/2020 12:00:00 AM EST capsule 90 TAKE ONE CAPSULE BY MOUTH THREE TIMES A DAY TAKE ONE CAPSULE BY MOUTH THREE TIMES A DAY SOLD: 06/28/2020 [facility] 400 mg 05/31/2020 12:00:00 AM EST capsule 90 TAKE ONE CAPSULE BY MOUTH THREE TIMES A DAY TAKE ONE CAPSULE BY MOUTH THREE TIMES A DAY SOLD: 05/31/2020 [facility] Famotidine 20 MG Oral Tablet FAMOTIDINE 05/30/2020 12:00:00 AM EST tab let 30 TAKE ONE TABLET BY MOUTH EVERY DAY TAKE ONE TABLET BY MOUTH EVERY DAY SOLD: 08/23/2020 [facility] Famotidine 20 MG Oral Tablet FAMOTIDINE 05/30/2020 12:00:00 AM EST tab let 30 TAKE ONE TABLET BY MOUTH EVERY DAY TAKE ONE TABLET BY MOUTH EVERY DAY SOLD: 05/31/2020 [facility] Famotidine 20 MG Oral Tablet FAMOTIDINE 05/30/2020 12:00:00 AM EST tab let 30 TAKE ONE TABLET BY MOUTH EVERY DAY TAKE ONE TABLET BY MOUTH EVERY DAY SOLD: 09/20/2020 [facility] 20 mg 05/30/2020 12:00:00 AM EST tablet 30 TAKE ONE TABLET BY MOUTH EVERY DAY TAKE ONE TABLET BY MOUTH EVERY DAY SOLD: 06/28/2020 [facility] Famotidine 20 MG Oral Tablet FAMOTIDINE 05/30/2020 12:00:00 AM EST tab let 30 TAKE ONE TABLET BY MOUTH EVERY DAY TAKE ONE TABLET BY MOUTH EVERY DAY SOLD: 10/18/2020 [facility] Famotidine 20 MG Oral Tablet FAMOTIDINE 05/30/2020 12:00:00 AM EST tab let 30 TAKE ONE TABLET BY MOUTH EVERY DAY TAKE ONE TABLET BY MOUTH EVERY DAY SOLD: 07/26/2020 [facility] Famotidine 20 MG Oral Tablet FAMOTIDINE 05/30/2020 12:00:00 AM EST tab let 30 TAKE ONE TABLET BY MOUTH EVERY DAY TAKE ONE TABLET BY MOUTH EVERY DAY SOLD: 11/15/2020 [facility] 1 mg 05/09/2020 12:00:00 AM EST tablet 30 TAKE ONE TABLET BY MOUTH EVERY DAY TAKE ONE TABLET BY MOUTH EVERY DAY SOLD: 05/10/2020 [facility] 1 mg 05/09/2020 12:00:00 AM EST tablet 30 TAKE ONE TABLET BY MOUTH EVERY DAY TAKE ONE TABLET BY MOUTH EVERY DAY SOLD: 06/14/2020 [facility] 1 mg 05/09/2020 12:00:00 AM EST tablet 30 TAKE ONE TABLET BY MOUTH EVERY DAY TAKE ONE TABLET BY MOUTH EVERY DAY SOLD: 10/09/2020 [facility] 1 mg 05/09/2020 12:00:00 AM EST tablet 30 TAKE ONE TABLET BY MOUTH EVERY DAY TAKE ONE TABLET BY MOUTH EVERY DAY SOLD: 09/06/2020 [facility] 1 mg 05/09/2020 12:00:00 AM EST tablet 30 TAKE ONE TABLET BY MOUTH EVERY DAY TAKE ONE TABLET BY MOUTH EVERY DAY SOLD: 07/12/2020 [facility] Potassium Chloride 10 MEQ Extended Release Oral Capsule POTA SSIUM CHLORIDE 05/07/2020 12:00:00 AM EST capsule, extended release 120 TAKE TWO CAPSULES BY MOUTH TWICE A DAY TAKE TWO CAPSULES BY MOUTH TWICE A DAY SOLD: 05/08/2020 [facility] Potassium Chloride 10 MEQ Extended Release Oral Capsule POTA SSIUM CHLORIDE 04/14/2020 12:00:00 AM EST capsule, extended release 120 TAKE TWO CAPSULES BY MOUTH TWICE A DAY TAKE TWO CAPSULES BY MOUTH TWICE A DAY SOLD: 04/16/2020 [facility] 10 mg 04/06/2020 12:00:00 AM EST tablet 90 TAKE ONE TABLET BY MOUTH EVERY DAY TAKE ONE TABLET BY MOUTH EVERY DAY SOLD: 01/12/2021 [facility] 80 mg 04/06/2020 12:00:00 AM EST tablet 120 TAKE 1 TABLET BY MOUTH TWICE A DAY, & FOR INCREASED EDEMA TAKE AN EXTRA TABLET EVERY OTHER DAY TAKE 1 TABLET BY MOUTH TWICE A DAY, & FOR INCREASED EDEMA TAKE AN EXTRA TABLET EVERY OTHER DAY SOLD: 05/17/2020 [facility] 80 mg 04/06/2020 12:00:00 AM EST tablet 120 TAKE 1 TABLET BY MOUTH TWICE A DAY, & FOR INCREASED EDEMA TAKE AN EXTRA TABLET EVERY OTHER DAY TAKE 1 TABLET BY MOUTH TWICE A DAY, & FOR INCREASED EDEMA TAKE AN EXTRA TABLET EVERY OTHER DAY SOLD: 04/06/2020 [facility] 10 mg 04/06/2020 12:00:00 AM EST tablet 90 TAKE ONE TABLET BY MOUTH EVERY DAY TAKE ONE TABLET BY MOUTH EVERY DAY SOLD: 07/12/2020 [facility] 10 mg 04/06/2020 12:00:00 AM EST tablet 90 TAKE ONE TABLET BY MOUTH EVERY DAY TAKE ONE TABLET BY MOUTH EVERY DAY SOLD: 04/06/2020 [facility] 10 mg 04/06/2020 12:00:00 AM EST tablet 90 TAKE ONE TABLET BY MOUTH EVERY DAY TAKE ONE TABLET BY MOUTH EVERY DAY SOLD: 10/09/2020 [facility] 10 mEq 03/22/2020 12:00:00 AM EST capsule, extended relea se 120 TAKE TWO CAPSULES BY MOUTH TWICE A DAY TAKE TWO CAPSULES BY MOUTH TWICE A DAY SOLD: 03/22/2020 [facility] cefdinir 300 MG Oral Capsule Cefdinir 02/16/2020 12:00:00 AM EST ORAL active [facility] ([facility]) 400 mg 02/09/2020 12:00:00 AM EDT capsule 90 TAKE ONE CAPSULE BY MOUTH THREE TIMES A DAY TAKE ONE CAPSULE BY MOUTH THREE TIMES A DAY SOLD: 04/05/2020 [facility] 400 mg 02/09/2020 12:00:00 AM EDT capsule 90 TAKE ONE CAPSULE BY MOUTH THREE TIMES A DAY TAKE ONE CAPSULE BY MOUTH THREE TIMES A DAY SOLD: 05/03/2020 [facility] 400 mg 02/09/2020 12:00:00 AM EDT capsule 90 TAKE ONE CAPSULE BY MOUTH THREE TIMES A DAY TAKE ONE CAPSULE BY MOUTH THREE TIMES A DAY SOLD: 03/08/2020 [facility] 400 mg 02/09/2020 12:00:00 AM EDT capsule 90 TAKE ONE CAPSULE BY MOUTH THREE TIMES A DAY TAKE ONE CAPSULE BY MOUTH THREE TIMES A DAY SOLD: 02/09/2020 [facility] 25 mg 02/06/2020 12:00:00 AM EDT tablet 60 TAKE ONE TABLET BY MOUTH TWICE A DAY TAKE ONE TABLET BY MOUTH TWICE A DAY SOLD: 02/07/2020 [facility] 25 mg 02/06/2020 12:00:00 AM EDT tablet 60 TAKE ONE TABLET BY MOUTH TWICE A DAY TAKE ONE TABLET BY MOUTH TWICE A DAY SOLD: 12/13/2020 [facility] 25 mg 02/06/2020 12:00:00 AM EDT tablet 60 TAKE ONE TABLET BY MOUTH TWICE A DAY TAKE ONE TABLET BY MOUTH TWICE A DAY SOLD: 10/16/2020 [facility] 25 mg 02/06/2020 12:00:00 AM EDT tablet 60 TAKE ONE TABLET BY MOUTH TWICE A DAY TAKE ONE TABLET BY MOUTH TWICE A DAY SOLD: 03/05/2020 [facility] 25 mg 02/06/2020 12:00:00 AM EDT tablet 60 TAKE ONE TABLET BY MOUTH TWICE A DAY TAKE ONE TABLET BY MOUTH TWICE A DAY SOLD: 05/01/2020 [facility] 25 mg 02/06/2020 12:00:00 AM EDT tablet 60 TAKE ONE TABLET BY MOUTH TWICE A DAY TAKE ONE TABLET BY MOUTH TWICE A DAY SOLD: 07/24/2020 [facility] 25 mg 02/06/2020 12:00:00 AM EDT tablet 60 TAKE ONE TABLET BY MOUTH TWICE A DAY TAKE ONE TABLET BY MOUTH TWICE A DAY SOLD: 11/13/2020 [facility] 25 mg 02/06/2020 12:00:00 AM EDT tablet 60 TAKE ONE TABLET BY MOUTH TWICE A DAY TAKE ONE TABLET BY MOUTH TWICE A DAY SOLD: 05/29/2020 [facility] 25 mg 02/06/2020 12:00:00 AM EDT tablet 60 TAKE ONE TABLET BY MOUTH TWICE A DAY TAKE ONE TABLET BY MOUTH TWICE A DAY SOLD: 08/20/2020 [facility] 25 mg 02/06/2020 12:00:00 AM EDT tablet 60 TAKE ONE TABLET BY MOUTH TWICE A DAY TAKE ONE TABLET BY MOUTH TWICE A DAY SOLD: 06/26/2020 [facility] 25 mg 02/06/2020 12:00:00 AM EDT tablet 60 TAKE ONE TABLET BY MOUTH TWICE A DAY TAKE ONE TABLET BY MOUTH TWICE A DAY SOLD: 04/02/2020 [facility] 25 mg 02/06/2020 12:00:00 AM EDT tablet 60 TAKE ONE TABLET BY MOUTH TWICE A DAY TAKE ONE TABLET BY MOUTH TWICE A DAY SOLD: 09/17/2020 [facility] 10 mEq 01/19/2020 12:00:00 AM EDT capsule, extended relea se 120 TAKE 2 CAPSULES BY MOUTH TWO TIMES A DAY TAKE 2 CAPSULES BY MOUTH TWO TIMES A DAY SOLD: 01/19/2020 [facility] 1 mg 01/16/2020 12:00:00 AM EDT tablet 30 TAKE ONE TABLET BY MOUTH AT NIGHT BEFORE BEDTIME TAKE ONE TABLET BY MOUTH AT NIGHT BEFORE BEDTIME SOLD: 03/13/2020 [facility] 1 mg 01/16/2020 12:00:00 AM EDT tablet 30 TAKE ONE TABLET BY MOUTH AT NIGHT BEFORE BEDTIME TAKE ONE TABLET BY MOUTH AT NIGHT BEFORE BEDTIME SOLD: 01/17/2020 [facility] 1 mg 01/16/2020 12:00:00 AM EDT tablet 30 TAKE ONE TABLET BY MOUTH AT NIGHT BEFORE BEDTIME TAKE ONE TABLET BY MOUTH AT NIGHT BEFORE BEDTIME SOLD: 05/08/2020 [facility] 1 mg 01/16/2020 12:00:00 AM EDT tablet 30 TAKE ONE TABLET BY MOUTH AT NIGHT BEFORE BEDTIME TAKE ONE TABLET BY MOUTH AT NIGHT BEFORE BEDTIME SOLD: 02/14/2020 [facility] 1 mg 01/16/2020 12:00:00 AM EDT tablet 30 TAKE ONE TABLET BY MOUTH AT NIGHT BEFORE BEDTIME TAKE ONE TABLET BY MOUTH AT NIGHT BEFORE BEDTIME SOLD: 04/12/2020 [facility] 5 mg 01/12/2020 12:00:00 AM EDT tablet 45 TAKE ONE TABLET BY MOUTH EVERY OTHER DAY TAKE ONE TABLET BY MOUTH EVERY OTHER DAY SOLD: 01/12/2020 [facility] 5 mg 01/12/2020 12:00:00 AM EDT tablet 45 TAKE ONE TABLET BY MOUTH EVERY OTHER DAY TAKE ONE TABLET BY MOUTH EVERY OTHER DAY SOLD: 04/10/2020 [facility] 80 mg 12/22/2019 12:00:00 AM EDT tablet 120 TAKE 1TAB.BY MOUTH 2X/DAY & FOR INCREASED EDEMA TAKE EXTRA DOSE EVERY OTHER DAY TAKE 1TAB.BY MOUTH 2X/DAY & FOR INCREASED EDEMA TAKE EXTRA DOSE EVERY OTHER DAY SOLD: 02/07/2020 [facility] 50 mg 12/22/2019 12:00:00 AM EDT tablet 30 TAKE ONE TABLET BY MOUTH EVERY DAY TAKE ONE TABLET BY MOUTH EVERY DAY SOLD: 02/11/2020 [facility] 50 mg 12/22/2019 12:00:00 AM EDT tablet 30 TAKE ONE TABLET BY MOUTH EVERY DAY TAKE ONE TABLET BY MOUTH EVERY DAY SOLD: 05/03/2020 [facility] 50 mg 12/22/2019 12:00:00 AM EDT tablet 30 TAKE ONE TABLET BY MOUTH EVERY DAY TAKE ONE TABLET BY MOUTH EVERY DAY SOLD: 03/08/2020 [facility] 50 mg 12/22/2019 12:00:00 AM EDT tablet 30 TAKE ONE TABLET BY MOUTH EVERY DAY TAKE ONE TABLET BY MOUTH EVERY DAY SOLD: 04/05/2020 [facility] 50 mg 12/22/2019 12:00:00 AM EDT tablet 30 TAKE ONE TABLET BY MOUTH EVERY DAY TAKE ONE TABLET BY MOUTH EVERY DAY SOLD: 05/31/2020 [facility] 50 mg 12/22/2019 12:00:00 AM EDT tablet 30 TAKE ONE TABLET BY MOUTH EVERY DAY TAKE ONE TABLET BY MOUTH EVERY DAY SOLD: 01/17/2020 [facility] 2.5 mg 12/17/2019 12:00:00 AM EDT tablet 4 TAKE 1 TABLET BY MOUTH EVERY SATURDAY TAKE 1 TABLET BY MOUTH EVERY SATURDAY SOLD: 07/23/2020 [facility] 2.5 mg 12/17/2019 12:00:00 AM EDT tablet 4 TAKE 1 TABLET BY MOUTH EVERY SATURDAY TAKE 1 TABLET BY MOUTH EVERY SATURDAY SOLD: 09/08/2020 [facility] 2.5 mg 12/17/2019 12:00:00 AM EDT tablet 4 TAKE 1 TABLET BY MOUTH EVERY SATURDAY TAKE 1 TABLET BY MOUTH EVERY SATURDAY SOLD: 05/03/2020 [facility] 2.5 mg 12/17/2019 12:00:00 AM EDT tablet 4 TAKE 1 TABLET BY MOUTH EVERY SATURDAY TAKE 1 TABLET BY MOUTH EVERY SATURDAY SOLD: 03/13/2020 [facility] 2.5 mg 12/17/2019 12:00:00 AM EDT tablet 4 TAKE 1 TABLET BY MOUTH EVERY SATURDAY TAKE 1 TABLET BY MOUTH EVERY SATURDAY SOLD: 08/18/2020 [facility] 2.5 mg 12/17/2019 12:00:00 AM EDT tablet 4 TAKE 1 TABLET BY MOUTH EVERY SATURDAY TAKE 1 TABLET BY MOUTH EVERY SATURDAY SOLD: 10/04/2020 [facility] 2.5 mg 12/17/2019 12:00:00 AM EDT tablet 4 TAKE 1 TABLET BY MOUTH EVERY SATURDAY TAKE 1 TABLET BY MOUTH EVERY SATURDAY SOLD: 01/12/2020 [facility] 2.5 mg 12/17/2019 12:00:00 AM EDT tablet 4 TAKE 1 TABLET BY MOUTH EVERY SATURDAY TAKE 1 TABLET BY MOUTH EVERY SATURDAY SOLD: 05/29/2020 [facility] 2.5 mg 12/17/2019 12:00:00 AM EDT tablet 4 TAKE 1 TABLET BY MOUTH EVERY SATURDAY TAKE 1 TABLET BY MOUTH EVERY SATURDAY SOLD: 04/07/2020 [facility] 2.5 mg 12/17/2019 12:00:00 AM EDT tablet 4 TAKE 1 TABLET BY MOUTH EVERY SATURDAY TAKE 1 TABLET BY MOUTH EVERY SATURDAY SOLD: 06/26/2020 [facility] 2.5 mg 12/17/2019 12:00:00 AM EDT tablet 4 TAKE 1 TABLET BY MOUTH EVERY SATURDAY TAKE 1 TABLET BY MOUTH EVERY SATURDAY SOLD: 02/14/2020 [facility] 324 mg (38 mg iron) 12/01/2019 12:00:00 AM EDT tablet 30 TAKE ONE TABLET BY MOUTH EVERY DAY TAKE ONE TABLET BY MOUTH EVERY DAY SOLD: 03/05/2020 [facility] 324 mg (38 mg iron) 12/01/2019 12:00:00 AM EDT tablet 30 TAKE ONE TABLET BY MOUTH EVERY DAY TAKE ONE TABLET BY MOUTH EVERY DAY SOLD: 04/06/2020 [facility] 324 mg (38 mg iron) 12/01/2019 12:00:00 AM EDT tablet 30 TAKE ONE TABLET BY MOUTH EVERY DAY TAKE ONE TABLET BY MOUTH EVERY DAY SOLD: 01/03/2020 [facility] 324 mg (38 mg iron) 12/01/2019 12:00:00 AM EDT tablet 30 TAKE ONE TABLET BY MOUTH EVERY DAY TAKE ONE TABLET BY MOUTH EVERY DAY SOLD: 05/12/2020 [facility] 324 mg (38 mg iron) 12/01/2019 12:00:00 AM EDT tablet 30 TAKE ONE TABLET BY MOUTH EVERY DAY TAKE ONE TABLET BY MOUTH EVERY DAY SOLD: 02/04/2020 [facility] 20 mg 11/14/2019 12:00:00 AM EDT tablet 30 TAKE ONE TABLET BY MOUTH EVERY DAY TAKE ONE TABLET BY MOUTH EVERY DAY SOLD: 04/02/2020 [facility] Famotidine 20 MG Oral Tablet FAMOTIDINE 11/14/2019 12:00:00 AM EDT tab let 30 TAKE ONE TABLET BY MOUTH EVERY DAY TAKE ONE TABLET BY MOUTH EVERY DAY SOLD: 05/01/2020 [facility] 20 mg 11/14/2019 12:00:00 AM EDT tablet 30 TAKE ONE TABLET BY MOUTH EVERY DAY TAKE ONE TABLET BY MOUTH EVERY DAY SOLD: 03/05/2020 [facility] Famotidine 20 MG Oral Tablet FAMOTIDINE 11/14/2019 12:00:00 AM EDT tab let 30 TAKE ONE TABLET BY MOUTH EVERY DAY TAKE ONE TABLET BY MOUTH EVERY DAY SOLD: 01/09/2020 [facility] 20 mg 11/14/2019 12:00:00 AM EDT tablet 30 TAKE ONE TABLET BY MOUTH EVERY DAY TAKE ONE TABLET BY MOUTH EVERY DAY SOLD: 02/07/2020 [facility] 400 mg 10/20/2019 12:00:00 AM EDT capsule 90 TAKE ONE CAPSULE BY MOUTH THREE TIMES A DAY TAKE ONE CAPSULE BY MOUTH THREE TIMES A DAY SOLD: 01/12/2020 [facility] 1 mg 10/19/2019 12:00:00 AM EDT tablet 30 TAKE ONE TABLET BY MOUTH EVERY DAY TAKE ONE TABLET BY MOUTH EVERY DAY SOLD: 04/16/2020 [facility] 1 mg 10/19/2019 12:00:00 AM EDT tablet 30 TAKE ONE TABLET BY MOUTH EVERY DAY TAKE ONE TABLET BY MOUTH EVERY DAY SOLD: 03/13/2020 [facility] 1 mg 10/19/2019 12:00:00 AM EDT tablet 30 TAKE ONE TABLET BY MOUTH EVERY DAY TAKE ONE TABLET BY MOUTH EVERY DAY SOLD: 01/24/2020 [facility] 25 mg 03/06/2019 12:00:00 AM EST tablet 60 TAKE ONE TABLET BY MOUTH TWICE A DAY TAKE ONE TABLET BY MOUTH TWICE A DAY SOLD: 01/09/2020 [facility] Insurance Providers Payer name Policy type / Coverage type Policy ID Covered alliance party ID Covered alliance party's relationship to cook Policy Cook Plan Information Medicare Natl Govt Servic Medicare Primary [id number] Self [id number] Medicare Natl Govt Servic Medicare Primary [id number] Self [id number] Medicare Natl Govt Servic Medicare Primary [id number] Self Medicare Natl Govt Servic Medicare Primary [id number] Self [id number] Medicare Natl Govt Servic Medicare Primary [id number] Self [id number] Medicare Natl Govt Servic Medicare Primary [id number] Self [id number] Medicare Natl Govt Servic Medicare Primary [id number] Self [id number] [place] [id number] Self [id number] Medicare Natl Govt Servic Medicare Primary [id number] Self [id number] MEDICARE [id number] SP [id number] A Medicare Natl Govt Servic Medicare Primary [id number] Self [id number] Medicare Natl Govt Servic Medicare Primary [id number] Self [id number] Medicare Natl Govt Servic Medicare Primary [id number] Self [id number] Medicare Natl Govt Servic Medicare Primary [id number] Self [id number] [place] [id number] SP [id number] P MEDICAID [id number] SP [id number] MEDICAID [id number] SP [id number] [place] Medig[place] Part B [id number] Self [id number] [place] OPTIONS [id number] SP [id number] Todays Option Medicare Commercial [id number] Self [id number] [employer] Medicare Commercial [id number] Self [id number] [employer] Medicare Commercial [id number] Self [id number] [employer] Commercial [id number] Self [id number] [employer] [facility] Commercial [id number] Self [id number] Medicaid Medigap Part B [id number] [id number] Self [id number] Medicaid Medigap Part B [id number] [id number] Self [id number] Medicaid Medigap Part B [id number] Self [id number] Medicaid Medigap Part B [id number] [id number] Self [id number] MEDICARE PART A -O/P [id number] 18 [id number] MEDICARE PART A-CLINIC [id number] 18 [id number] MEDICARE [id number] SP [id number] A Medicaid Medigap Part B 1 [id number] Self 1 1 WELLCARE [id number] SP [id number] MEDICAID M [id number] S [id number] MEDICARE C [id number] S [id number] A SELF PAY UNAVAILABLE SP UNAVAILA BLE MEDICARE - [facility] [id number] S [id number] MEDICAID [id number] SP [id number] Medicaid Medigap Part B [id number] [id number] Self [id number] Medicaid Medigap Part B [id number] [id number] Self [id number] Medicaid Medigap Part B [id number] [id number] Self [id number] Medicaid Medigap Part B [id number] 25.0 Self [id number] Medicaid Med[place]onna Part B [id number] [id number] Self [id number] Medicaid Medigap Part B [id number] 25.0 Self [id number] Medicaid Med[place]onna Part B [id number] 25.0 Self [id number] Problems, Conditions, and Diagnoses No Information Surgeries/Procedures Procedure Description Date Indications Data Source(s) Chronic Care MGMT 20 Mins Clinical Staff Time Per Calendar M [facility] 01/10/2021 12:00:00 AM EDT [facility] ([facility] ) Chronic Care MGMT 20 Mins Clinical Staff Time Per Calendar M [facility] 11/14/2020 12:00:00 AM EDT [facility] ([facility] ) Chronic Care MGMT 20 Mins Clinical Staff Time Per Calendar M [facility] 10/13/2020 12:00:00 AM EDT [facility] ([facility] ) Complex Chronic Care Management SVC 1St 60 Min 021 12:00:00 AM EDT [facility] ([facility]) Complex Chronic Care MGMT Service Ea Addl 30 Min 09/27 12:00:00 AM EDT [facility] ([facility]) Complex Chronic Care Management SVC 1St 60 Min 021 12:00:00 AM EDT [facility] ([facility]) Complex Chronic Care MGMT Service Ea Addl 30 Min 09/09 12:00:00 AM EDT [facility] ([facility]) Results ID Date Data Source [id number] 02/17/2021 09:11:00 AM EDT [facility] ([facility]) Name Value Range Interpretation Code Description Data Caroline rce(s) Supporting Document(s) Natriuretic peptide B [Mass/volume] in Serum or Plasma 74.4 pg/mL 0.0 -100.0 [facility] ([facility]) ID Date Data Source [id number] 02/17/2021 09:11:00 AM EDT [facility] ([facility]) Name Value Range Interpretation Code Description Data Caroline rce(s) Supporting Document(s) Glucose [Mass/volume] in Serum or Plasma 111 mg/dL 74-99 [facility] ([facility]) 100-125 mg/dL PRE-DIABETES/FASTING >126 mg/dL DIABETES/FASTING Urea nitrogen [Mass/volume] in Serum or Plasma 12 mg/dL 7-18 [facility] ([facility]) Sodium [Moles/volume] in Serum or Plasma 143 meq/L 136-145 [facility] ([facility]) Potassium [Moles/volume] in Serum or Plasma 4.0 meq/L 3.5-5.1 [facility] Creatinine 0.9 mg/dL 0.6-1.3 [facility] Carbon dioxide, total [Moles/volume] in Serum or Plasma 35 meq/L 21 -32 [facility]) Calcium [Mass/volume] in Serum or Plasma 9.4 mg/dL 8.5-10.1 [facility] ([facility]) Chloride [Moles/volume] in Serum or Plasma 102 meq/L 98-107 [facility]) Glomerular filtration rate/1.73 sq M pre dicted among non-blacks [Volume Rate/Area] in Serum or Plasma by Creatinine-based formula (MDRD) 60 mL/min [facility] Glomerular filtration rate/1.73 sq M pre dicted among blacks [Volume Rate/Area] in Serum or Plasma by Creatinine-based formula (MDRD) Laboratory test result [facility]) <content>CHRONIC KIDNEY DISEASE STAGING PER [facility]</content>
<content></content>
<content>STAGE I & II GFR >= 60 NORMAL TO MILDLY DECREASED</content>
<content>STAGE III GFR 30-59 MODERATELY DECREASED</content>
<content>STAGE IV GFR 15-29 SEVERELY DECREASED</content>
<content>STAGE V GFR <15 VERY LITTLE GFR LEFT</content>
<content>ESRD GFR <15 ON LIEUTENANT GENERAL</content>
<content></content> ID Date Data Source [id number] 08/12/2020 09:52:00 AM EDT [facility] ([facility]) Name Value Range Interpretation Code Description Data Caroline rce(s) Supporting Document(s) Ferritin [Mass/volume] in Serum or Plasma 37 ng/mL 8-252 [facility] ([facility]) ID Date Data Source [id number] 08/12/2020 09:52:00 AM EDT [facility] ([facility]) Name Value Range Interpretation Code Description Data Caroline rce(s) Supporting Document(s) Total Iron Binding Capacity 334 ug/dL 250-450 [facility] ([facility]) Iron (Fe) 62 ug/dL 50-170 [facility] Percent Saturation 18.6 % 13.2-45.0 [facility] ([facility]) ID Date Data Source [id number] 08/12/2020 09:50:00 AM EDT [facility] ([facility]) Name Value Range Interpretation Code Description Data Caroline rce(s) Supporting Document(s) Urine Creatinine 171.5 mg/dL 30.0-125.0 [facility] ([facility]) Microalbumin Urine 25.4 mg/L 1.3-20.0 [facility] ([facility]) Microalb/Creat Ratio 14.8 ug/mg 0.0-30.0 [facility] ( [facility]) ID Date Data Source [id number] 08/12/2020 09:50:00 AM EDT [facility] ([facility]) Name Value Range Interpretation Code Description Data Caroline rce(s) Supporting Document(s) Cholesterol [Mass/volume] in Serum or Plasma 160 mg/dL 131-200 [facility] ([facility]) Cholesterol in LDL [Mass/volume] in Serum or Plasma by calcu lation 88 CALC 50-159 [facility] ([facility]) Cholesterol in HDL [Mass/volume] in Serum or Plasma 46 mg/dL 35-60 [facility] ([facility]) Triglyceride [Mass/volume] in Serum or Plasma 131 mg/dL 30-150 [facility] ([facility]) ID Date Data Source [id number] 08/12/2020 09:50:00 AM EDT [facility] ([facility]) Name Value Range Interpretation Code Description Data Caroline rce(s) Supporting Document(s) Glucose [Mass/volume] in Serum or Plasma 94 mg/dL 74-99 [facility] ([facility]) 100-125 mg/dL PRE-DIABETES/FASTING >126 mg/dL DIABETES/FASTING Urea nitrogen [Mass/volume] in Serum or Plasma 11 mg/dL 7-18 [facility] ([facility]) Creatinine 0.9 mg/dL 0.6-1.3 [facility] ([facility]) Sodium [Moles/volume] in Serum or Plasma 141 meq/L 136-145 [facility] ([facility]) Chloride [Moles/volume] in Serum or Plasma 103 meq/L 98-107 [facility] ([facility]) Potassium [Moles/volume] in Serum or Plasma 4.0 meq/L 3.5-5.1 [facility] ([facility]) Calcium [Mass/volume] in Serum or Plasma 8.9 mg/dL 8.5-10.1 [facility] ([facility]) Alkaline phosphatase isoenzyme [Units/volume] in Serum or Pl asma 122 mg/dL 46-116 [facility] ([facility]) Carbon dioxide, total [Moles/volume] in Serum or Plasma 32 meq/L 21 -32 [facility] ([facility]) Aspartate aminotransferase [Enzymatic activity/volume] in Serum or Plasma 15 U/L 15-37 [facility] ([facility] ) Total Bilirubin 0.5 mg/dL 0.2-1.0 [facility] ([facility]) Alanine aminotransferase [Enzymatic activity/volume] in Seru m or Plasma 17 U/L 12-78 [facility] ([facility]) Albumin [Mass/volume] in Serum or Plasma 3.1 g/dL 3.4-5.0 [facility] ([facility]) Proteinase 3 Ab [Units/volume] in Serum 7.8 g/dL 6.4-8.2 [facility] ([facility]) A/G Ratio 0.66 CALC 1.00-1.90 [facility] [facility]) Glomerular filtration rate/1.73 sq M pre dicted among non-blacks [Volume Rate/Area] in Serum or Plasma by Creatinine-based formula (MDRD) 60 mL/min [facility]) Glomerular filtration rate/1.73 sq M pre dicted among blacks [Volume Rate/Area] in Serum or Plasma by Creatinine-based formula (MDRD) Laboratory test result [facility] ([facility]) <content>CHRONIC KIDNEY DISEASE STAGING PER [facility]</content>
<content></content>
<content>STAGE I & II GFR >= 60 NORMAL TO MILDLY DECREASED</content>
<content>STAGE III GFR 30-59 MODERATELY DECREASED</content>
<content>STAGE IV GFR 15-29 SEVERELY DECREASED</content>
<content>STAGE V GFR <15 VERY LITTLE GFR LEFT</content>
<content>ESRD GFR <15 ON LIE[place]ENANT GENERAL</content>
<content></content> ID Date Data Source [id number] 08/12/2020 09:50:00 AM EDT [facility]) Name Value Range Interpretation Code Description Data Caroline rce(s) Supporting Document(s) Hemoglobin A1c/Hemoglobin.total in Blood 6.3 % [facility] ([facility]) Lab Result Notes: Pre-Diabetes 5.7 - 6.4 % Diabetes = or > 6.5% Glucose mean value [Mass/volume] in Blood Estimated fr om glycated hemoglobin 134 mg/dL 60-110 [facility] ([facility] ID Date Data Source [id number] 08/12/2020 09:50:00 AM EDT [facility]) Name Value Range Interpretation Code Description Data Caroline rce(s) Supporting Document(s) Leukocytes [#/volume] in Blood by Automated count 7.6 x10*3/UL 4.1-10 .9 [facility] ([facility]) Hemoglobin [Mass/volume] in Blood 14.1 g/dL 12.0-18.0 [facility] ([facility]) Erythrocytes [#/volume] in Blood by Automated count 4.72 x10*6/UL 4.2 0-6.30 [facility] ([facility]) Hematocrit [Volume Fraction] of Blood by Automated count 42.9 % 3 7.0-51.0 [facility] ([facility]) MCH 30.0 pg 26.0-32.0 [facility]) MCV 90.8 fL 80.0-97.0 [facility] ([facility]) MCHC 33.0 g/dL 31.0-38.0 [facility] ([facility]) Platelets [#/volume] in Blood by Automated count 415 x10*3/UL 140-440 [facility] ([facility]) Erythrocyte distribution width [Ratio] by Automated count 13.5 % 11.6-13.7 [facility] ([facility]) Lymph % 22.9 % 10.0-58.5 [facility] ([facility]) MPV 8.0 FL 7.8-11.0 [facility] ([facility]) Lymph # 1.7 x10*3/UL 0.6-4.1 [facility] ([facility]) Neut % 72.0 % 37.0-92.0 [facility] [facility]) Mid % 5.1 % 1.7-9.3 [facility] ([facility]) Neut # 5.5 x10*3/UL 2.0-7.8 [facility] ([facility]) Mid # 0.4 x10*3/UL 0.1-0.6 [facility] ([facility]) ID Date Data Source [id number] 02/02/2020 12:59:00 PM EDT [facility] ([facility]) Name Value Range Interpretation Code Description Data Caroline rce(s) Supporting Document(s) Glucose [Mass/volume] in Serum or Plasma 113 mg/dL 74-99 [facility] ([facility]) 100-125 mg/dL PRE-DIABETES/FASTING >126 mg/dL DIABETES/FASTING Urea nitrogen [Mass/volume] in Serum or Plasma 9 mg/dL 7-18 [facility] ([facility]) Sodium [Moles/volume] in Serum or Plasma 141 meq/L 136-145 [facility] ([facility]) Potassium [Moles/volume] in Serum or Plasma 3.7 meq/L 3.5-5.1 [facility] ([facility]) Creatinine 0.8 mg/dL 0.6-1.3 [facility] ([facility]) Carbon dioxide, total [Moles/volume] in Serum or Plasma 37 meq/L 21 -32 [facility] ([facility]) Chloride [Moles/volume] in Serum or Plasma 99 meq/L 98-107 [facility] ([facility]) Calcium [Mass/volume] in Serum or Plasma 9.1 mg/dL 8.5-10.1 [facility] ([facility]) Alkaline phosphatase isoenzyme [Units/volume] in Serum or Pl asma 100 mg/dL 46-116 [facility] ([facility]) Alanine aminotransferase [Enzymatic activity/volume] in Seru m or Plasma 19 U/L 12-78 [facility] ([facility]) Total Bilirubin 0.3 mg/dL 0.2-1.0 [facility] ([facility]) Aspartate aminotransferase [Enzymatic activity/volume] in Serum or Plasma 15 U/L 15-37 [facility] ([facility] ) A/G Ratio 0.71 CALC 1.00-1.90 [facility]) Proteinase 3 Ab [Units/volume] in Serum 7.2 g/dL 6.4-8.2 [facility] ([facility]) Albumin [Mass/volume] in Serum or Plasma 3.0 g/dL 3.4-5.0 [facility] ([facility]) Glomerular filtration rate/1.73 sq M pre dicted among blacks [Volume Rate/Area] in Serum or Plasma by Creatinine-based formula (MDRD) Laboratory test result [facility]) <content>CHRONIC KIDNEY DISEASE STAGING PER [facility]</content>
<content></content>
<content>STAGE I & II GFR >= 60 NORMAL TO MILDLY DECREASED</content>
<content>STAGE III GFR 30-59 MODERATELY DECREASED</content>
<content>STAGE IV GFR 15-29 SEVERELY DECREASED</content>
<content>STAGE V GFR <15 VERY LITTLE GFR LEFT</content>
<content>ESRD GFR <15 ON [facility] GENERAL</content>
<content></content> Glomerular filtration rate/1.73 sq M pre dicted among non-blacks [Volume Rate/Area] in Serum or Plasma by Creatinine-based formula (MDRD) Laboratory test result [facility] ([facility] ) ID Date Data Source [id number] 02/02/2020 12:59:00 PM EDT [facility] ([facility]) Name Value Range Interpretation Code Description Data Caroline rce(s) Supporting Document(s) Erythrocyte sedimentation rate by Westergren method 29 mm/hr 0-15 [facility] ([facility]) ID Date Data Source [id number] 02/02/2020 12:59:00 PM EDT [facility] ([facility]) Name Value Range Interpretation Code Description Data Caroline rce(s) Supporting Document(s) Hemoglobin [Mass/volume] in Blood 14.3 g/dL 12.0-18.0 [facility] ([facility]) Erythrocytes [#/volume] in Blood by Automated count 4.90 x10*6/UL 4.2 0-6.30 [facility] ([facility]) Hematocrit [Volume Fraction] of Blood by Automated count 43.6 % 3 7.0-51.0 [facility] ([facility]) Leukocytes [#/volume] in Blood by Automated count 9.9 x10*3/UL 4.1-10 .9 [facility] ([facility]) NOTE: RESULT VERIFIED. MCV 89.0 fL 80.0-97.0 [facility] ([facility] MCHC 32.9 g/dL 31.0-38.0 [facility] ([facility] MCH 29.3 pg 26.0-32.0 [facility]) Platelets [#/volume] in Blood by Automated count 364 x10*3/UL 140-440 [facility] ([facility]) Erythrocyte distribution width [Ratio] by Automated count 14.1 % 11.6-13.7 [facility] ([facility]) MPV 9.8 FL 7.8-11.0 [facility]) Mid % 3.7 % 1.7-9.3 [facility] Neut % 84.9 % 37.0-92.0 [facility] Lymph % 11.4 % 10.0-58.5 [facility] ([facility] Lymph # 1.1 x10*3/UL 0.6-4.1 [facility] ([facility]) Neut # 8.4 x10*3/UL 2.0-7.8 [facility] ([facility]) Mid # 0.4 x10*3/UL 0.1-0.6 [facility] ([facility]) Procedure Social History No Information Vital Signs ID Date Data Source UNK Name Value Range Interpretation Code Description Data Source(s) Heart rate 67 /min 67 /min [facility] ([facility]) Systolic blood pressure 102 mm[Hg] 102 mm[Hg] M [facility] ([facility]) Diastolic blood pressure 60 mm[Hg] 60 mm[Hg] [facility] ([facility]) Body height 60 [in_i] 60 [in_i] [facility] ([facility]) 5'0" Oxygen saturation in Arterial blood by Pulse oximetry 91 % 91 % [facility] ([facility]) RM Air Diastolic blood pressure 60 mm[Hg] 60 mm[Hg] [facility] ([facility]) Systolic blood pressure 102 mm[Hg] 102 mm[Hg] M [facility] ([facility]) Heart rate 72 /min 72 /min [facility] ([facility]) Body height 60 [in_i] 60 [in_i] [facility] ([facility]) 5'0" Body weight 184.00 [lb_av] 184.00 [lb_av] [facility] ([facility]) wt at home Body mass index (BMI) [Ratio] 35.9 kg/m2 35.9 k g/m2 [facility] ([facility]) Systolic blood pressure 110 mm[Hg] 110 mm[Hg] M [facility] ([facility]) Diastolic blood pressure 60 mm[Hg] 60 mm[Hg] [facility] ([facility]) Heart rate 78 /min 78 /min [facility] ([facility]) Body height 60 [in_i] 60 [in_i] [facility] ([facility]) 5'0"
--- OUTSIDE RECORDS SUMMARY | 2021-03-03 14:18 | CCD | Continuity of Care Document ---
Author Author Sallie LENTZ Organization Unknown Address [address] [facility] [address] [place] [address] Phone [phone] Care Team Providers Care Couture Dressmaker Name Role Phone Sharita Jensen AUTM [phone] Kit Garcia MD AUTM [phone] Jeanette Lentz DO AUTM Unavailable Isidoro De Jesus DPM AUTM [phone] [facility] - Co Director AUTM [phone] Problems Active Problems Provider Date Hyperlipidemia Jeanette [...] saturday and saturday 8tabs Jeanette LentzDO Attends [facility] Large M [facility] certanty brand change three times a [...] CPT Code Status Date Vaccine Lot # [id number] Given 07/05/2016 Pneumovax 23 [id number] Refused 02/17/2021 Influenza Vaccin e Quadrivalent Preser/Antibiotic Free Im Use 34955 Refused 03/11/2017 Influenza Vaccin e Quadrivalent Preser/Antibiotic [...] Date Facility Test Result H/L Range Note Basic Metabolic Panel 02/17/2021 [facility] [employer] 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: [place] [address] [phone] Glucose 111 mg/dL High 74 - 99 1 BUN 12 mg/dL 7 - 18 Creatinine 0.9 mg/dL 0.6 - 1.3 Sodium 143 mEq/L 136 - 145 Potassium 4.0 mEq/L 3.5 - 5.1 Chloride 102 mEq/L 98 - 107 Carbon Dioxide 35 mEq/L High 21 - 32 Calcium 9.4 mg/dL 8.5 - 10.1 GFR 60 mL/min Low >60 GFR >= 60 mL/min >60 2 Laboratory test finding 02/17/2021 [facility] 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: [place] [address] [phone] B-Type Natriuretic Peptide 74.4 pg/mL 0.0 - 100.0 1 100-125 mg/dL PRE-DIABET ES/FASTING >126 mg/dL DIABETES/FASTING 2 CHRONIC KIDNEY DISEASE STAGI NG PER NKF STAGE I & II GFR >= 60 NORMAL TO MILDLY DECREASED STAGE III GFR 30-59 MODERATELY DECREASED STAGE IV GFR 15-29 SEVERELY DECREASED STAGE V GFR <15 VERY LITTLE GFR LEFT ESRD GFR <15 ON GARMENT FOLDER Procedures Date Code Description Status 01/10/2021 85589 Chronic Care MGMT 20 Mins Clinical Staff Time Per Calendar Month Completed 11/14/2020 90513 Chronic Care MGMT 20 Mins Clinical Staff Time Per Calendar Month Completed 10/13/2020 96905 Chronic Care MGMT 20 Mins Clinical Staff Time Per Calendar Month Completed 09/27/2020 63568 Complex Chronic Care MGMT Servic e Ea Addl 30 Min Completed 09/27/2020 13363 Complex Chronic Care Management SVC 1St 60 Min Completed 09/09/2020 36412 Complex Chronic Care MGMT Servic e Ea Addl 30 Min Completed 09/09/2020 60432 Complex Chronic Care Management SVC 1St 60 Min Completed 10/06/2019 761628836 Diabetic Retinal Eye Exam Comple isis 08/07/2017 140580559 Diabetic Retinal Eye Exam Comple isis 07/19/2017 936103074 Diabetic Retinal Eye Exam Comple isis 07/11/2017 701114981 Diabetic Retinal Eye Exam Comple isis 01/03/2016 475926044 Diabetic Foot Exam Completed 03/01/2010 45310404 Mammogram Completed 01/05/2010 98325893 Colonoscopy Completed 02/25/2009 17658692 Mammogram Completed 07/31/2006 048439105 Bone Mineral Density Test Comple [facility] Medical Devices Description No Information Available Encounters Description No Information Available Assessments Date Code Description Provider 02/17/2021 I50.33 Acute on chronic diastolic (jose estive) heart failure Jeanette Lentz,DO 02/17/2021 M06.9 Rheumatoid arthritis, unspecifie d Jeanette Lentz,DO 02/17/2021 G25.81 Restless legs syndrome Jeanette setvenson,DO 02/17/2021 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.52 intermediate card tender (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) use of syste tasneem steroids Jeanette Lentz,DO 02/17/2021 D50.9 Iron deficiency anemia, unspecif ied Jeanette Lentz,DO 02/17/2021 N18.31 Chronic kidney disease, stage 3a Jeanette Lentz,DO 02/17/2021 M15.9 Polyosteoarthritis, unspecified Jeanette Lentz,DO 02/17/2021 R26.2 Difficulty in walking, not elsew here classified Jeanette Lentz,DO 01/10/2021 E55.9 Vitamin D deficiency, unspecifie d Jeanette Lentz,DO 01/10/2021 E78.5 Hyperlipidemia, unspecified Cesar Lentz,DO 01/10/2021 M06.9 Rheumatoid arthritis, unspecifie d Jeanette Lentz,DO 11/14/2020 I50.32 Chronic diastolic (congestive) h eart failure Jeanette Lentz,DO 11/14/2020 E78.5 Hyperlipidemia, unspecified Cesar ahsan Carmella,DO 11/14/2020 G25.81 Restless legs syndrome Jeanette stevenson,DO 10/13/2020 E55.9 Vitamin D deficiency, unspecifie d Jeanette Lentz,DO 10/13/2020 I50.32 Chronic diastolic (congestive) h eart failure Jeanette Carmella,DO 10/13/2020 E78.5 Hyperlipidemia, unspecified Cesar a Carmella,DO 09/27/2020 E55.9 Vitamin D deficiency, unspecifie d Jeanette Lentz,DO 09/27/2020 I50.32 Chronic diastolic (congestive) h eart failure Jeanette Lentz,DO 09/27/2020 E78.5 Hyperlipidemia, unspecified Cesar a Carmella,DO 09/27/2020 G25.81 Restless legs syndrome Jeanette Yocasta stevenson,DO 09/09/2020 E55.9 Vitamin D deficiency, unspecifie d Jeanette Lentz,DO 09/09/2020 I50.32 Chronic diastolic (congestive) h eart failure Jeanette Lentz,DO 09/09/2020 E78.5 Hyperlipidemia, unspecified Cesar ahsan Lentz,DO 09/09/2020 G25.81 Restless legs syndrome Jeanette stevenson DO Plan of Treatment Future Appointment(s):* 03/07/2021 10:00 am - Jeanette Lentz DO at [facility] 02/17/2021 - Jeanette Lentz DO* I50.33 Acute on chronic diastolic (congestive) heart failure * M06.9 Rheumatoid arthritis, unspecified * G25.81 Restless legs syndrome * Z79.52 correction (current) use of systemic steroids * D50.9 [...]
--- OUTSIDE RECORDS SUMMARY | 2021-03-03 14:18 | CCD | Continuity of Care Document ---
Author Author Sallie LENTZ Organization Unknown Address [address] [facility] [address] [place] [address] Phone [phone] Care Team Providers Care Egg Factory Worker Name Role Phone Sharita Jensen AUTM [phone] Kit Garcia MD AUTM [phone] Jeanette Lentz DO AUTM Unavailable Isidoro De Jesus DPM AUTM [phone] [facility] - Territory Development Manager AUTM [phone] Problems Active Problems Provider Date Hyperlipidemia Jeanette [...] saturday 8tabs Jeanette LentzDO Attends [facility] Large M located [facility] certanty brand change three times a day [...] CPT Code Status Date Vaccine Lot # [id number] Given 07/05/2016 Pneumovax 23 [id number] Refused 02/17/2021 Influenza Vaccin e Quadrivalent Preser/Antibiotic Free Im Use 05449 Refused 03/11/2017 Influenza Vaccin e Quadrivalent Preser/Antibiotic [...] BMI (Body Mass Index) 35.9 kg/m2 Results Description No Information Available Procedures Date Code Description Status 01/10/2021 74890 Chronic Care MGMT 20 Mins Clinical Staff Time Per Calendar Month Completed 11/14/2020 70512 Chronic Care MGMT 20 Mins Clinical Staff Time Per Calendar Month Completed 10/13/2020 91845 Chronic Care MGMT 20 Mins Clinical Staff Time Per Calendar Month Completed 09/27/2020 09900 Complex Chronic Care MGMT Servic e Ea Addl 30 Min Completed 09/27/2020 76827 Complex Chronic Care Management SVC 1St 60 Min Completed 09/09/2020 19213 Complex Chronic Care MGMT Servic e Ea Addl 30 Min Completed 09/09/2020 49958 Complex Chronic Care Management SVC 1St 60 Min Completed 10/06/2019 017351021 Diabetic Retinal Eye Exam [facility] 08/07/2017 073467321 Diabetic Retinal Eye Exam [facility] 07/19/2017 239613121 Diabetic Retinal Eye Exam [facility] 07/11/2017 367593093 Diabetic Retinal Eye Exam [facility] 01/03/2016 348300668 Diabetic Foot Exam Completed 03/01/2010 59257151 Mammogram Completed 01/05/2010 69092368 Colonoscopy Completed 02/25/2009 55307559 Mammogram Completed 07/31/2006 650638844 Bone Mineral Density Test Comple [facility] Medical Devices Description No Information Available Encounters Description No Information Available Assessments Date Code Description Provider 01/10/2021 E55.9 Vitamin D deficiency, unspecifie d Jeanette Lentz,DO 01/10/2021 E78.5 Hyperlipidemia, unspecified Cesar Lentz,DO 01/10/2021 M06.9 Rheumatoid arthritis, unspecifie d Jeanette Lentz,DO 11/14/2020 I50.32 Chronic diastolic (congestive) h eart failure Jeanette Lentz,DO 11/14/2020 E78.5 Hyperlipidemia, unspecified Cesar foreman Carmella,DO 11/14/2020 G25.81 Restless legs syndrome Jeanette stevenson,DO 10/13/2020 E55.9 Vitamin D deficiency, unspecifie d Jeanette Lentz,DO 10/13/2020 I50.32 Chronic diastolic (congestive) h eart failure Jeanette Lentz,DO 10/13/2020 E78.5 Hyperlipidemia, unspecified Cesar ahsan Carmella,DO 09/27/2020 E55.9 Vitamin D deficiency, unspecifie d Jeanette Lentz,DO 09/27/2020 I50.32 Chronic diastolic (congestive) h eart failure Jeanette Lentz,DO 09/27/2020 E78.5 Hyperlipidemia, unspecified Cesar ahsan Carmella,DO 09/27/2020 G25.81 Restless legs syndrome Jeantete Yocasta stevenson,DO 09/09/2020 E55.9 Vitamin D deficiency, unspecifie d Jeanette Carmella,DO 09/09/2020 I50.32 Chronic diastolic (congestive) h eart failure Jeanette Lentz,DO 09/09/2020 E78.5 Hyperlipidemia, unspecified Cesar foreman Carmella,DO 09/09/2020 G25.81 Restless legs syndrome Jeanette stevenson DO Plan of Treatment Future Appointment(s):* 03/07/2021 10:00 am - Jeanette Lentz DO at [facility] 08/12/2020 - Jeanette Lentz DO* I50.32 Chronic diastolic (congestive) heart failure * M06.9 Rheumatoid arthritis, unspecified * Z79.52 intermediate (current) use of systemic steroids * D50.9 Iron deficiency anemia, unspecified * G25.81 Restless legs syndrome * E78.5 Hyperlipidemia, unspecified * N18.31 Chronic kidney disease, stage 3a * E55.9 Vitamin D deficiency, unspecified * R73.09 Other abnormal glucose * M15.9 Polyosteoarthritis, unspecified * R26.2 Difficulty in walking, not elsewhere classified Functional Status Description No Information Available Mental Status Description No Information Available Referrals Description No Information Available
[2021-03-03 14:28] LABS: INR 1.15; PROTHROMBIN TIME 15.1 SECONDS (12.7-14.5)
[2021-03-03 14:29] LABS: PARTIAL THROMBOPLASTIN TIME 26.2 SECONDS (25.9-37.0)
[2021-03-03] MEDS ORDERED: NS 1,000 ML IV ONE (14:30)
[2021-03-03 15:35] LABS: RSV AMPLIFICATION NEGATIVE (NEGATIVE)
[2021-03-03] MEDS ORDERED: cefTRIAXone SOD 2 GM in D5W MINI-BAG PLUS 50 ML IV ONE (15:35)
[2021-03-03] MEDS ORDERED: AZITHROMYCIN INJ 500 MG, VIAL MATE ADAPTER 1 EACH in NS 250 ML IV ONE (16:10)
[2021-03-03] MEDS ORDERED: POTASSIUM CHLORIDE 10MEQ SR TABLET PO ONE (16:25)
--- OUTSIDE RECORDS SUMMARY | 2021-03-03 16:30 | CCD ---
Author Author [facility] Organization [facility] Address Unknown Phone Unavailable Care Team Providers Care Medical Secretary Receptionist Name Role Phone Carmella, Jeanette DO Unavailable [...] Unavailable Unavailable Carmella, Jeanette DO Unavailable Unavailable Carmlela, Jeanette DO Unavailable Unavailable Carmella, Jeanette DO [...] is protected by Article 27-F of the [facility] Public Health law. If you continue you may have access to information: Regarding HIV / AIDS; Provided by facilities licensed or operated by the [facility] Office of Mental Health; or Provided by the [facility] Office for People With Developmental Disabilities. If such information is present, then the following [facility] mandated warning applies: This information has [...] law may result in a fine or shelter sentence or both. A general authorization for the release of medical or other information is NOT sufficient authorization for further disc losure. Family History Family Member Name Family Member Gender Family Member Status Date o f Status Description Data Source(s) Unknown Male Problem [facility] ([facility]) Encounters Encounter Providers Location Date Indications Data Source(s ) Outpatient Attender: Jeanette Zamora 08/12 09:40:00 AM EDT [facility] ([facility] ) Outpatient Attender: Jeanette Zamora 02/01 01:30:00 PM EDT [facility] ([facility] ) Immunizations Vaccine Date Status Description Data Source(s) Influenza, injectable, MDCK, preservative free, poppy valent 02/17/2021 09:33:00 AM EDT completed [facility] COVID-19 VACCINE Moderna 08/31/2020 12:00:00 AM EDT completed [facility] Vaccine Series Complete: YESThis Data wa s Submitted to [facility] Via [employer]. COVID-19 VACCINE Moderna 08/03/2020 12:00:00 AM EDT completed CASIIS Vaccine Series Complete: NOThis Data was Submitted to [facility] Via [employer]. Medications Medication Brand Name Start Date Product [...] MOUTH EVERY DAY SOLD: 02/07/2021 [facility] 25 mg 01/10/2021 12:00:00 AM [...] 06/24/2020 12:00:00 AM EST ORAL active [facility] ([facility]) 80 mg 06/24/2020 12:00:00 AM EST [...] TABLET BY MOUTH EVERY DAY SOLD: 06/14/2020 [facility] 324 mg (38 mg iron) 06/14/2020 [...] type / Coverage type Policy ID Covered republican ID Covered republican's relationship to cook Policy Cook Plan Information Medicare Natl Govt Servic Medicare Primary [id number] Self [id number] Medicare Natl Govt Servic Medicare Primary [id number] Self [id number] Medicare Natl Govt Servic Medicare Primary [id number] Self [id number] Medicare Natl Govt Servic Medicare Primary [id number] Self [id number] Medicare Natl Govt Servic Medicare Primary [id number] Self [id number] Medicare Natl Govt Servic Medicare Primary [id number] Self [id number] Medicare Natl Govt Servic Medicare Primary [id number] Self [id number] Medicare Natl Govt Servic Medicare Primary [id number] Self [id number] Medicare Natl Govt Servic Medicare Primary [id number] Self [id number] MEDICARE [id number] SP [id number] [place] Primary [id number] Self [id number] Medicare Natl Govt Servic Medicare Primary [id number] Self [id number] Medicare Natl Govt Servic Medicare Primary [id number] Self [id number] Medicare Natl Govt Servic Medicare Primary [id number] Self MEDICAID [id number] SP [id number] MED[place] [id number] [place] [id number] [place] [id number] SP [id number] P [place] Medigap Part B [id number] Self [id number] Todays Option Medicare Commercial [id number] Self [id number] [place] [id number] [place] [id number] Todays Option Medicare Commercial [id number] Self [id number] Todays Option Medicare Commercial [id number] Self [id number] Wellcare/Todays Optmcr Commercial [id number] Self [id number] Wellcare/Todays Optr Commercial [id number] Self [id number] MEDICAID M [id number] S [id number] MEDICARE C [id number] S [id number] A Medicaid Medigap Part B [id number] 25.0 Self [id number] SELF PAY UNAVAILABLE SP UNAVAILA BLE Medicaid Medigap Part B [id number] 25.0 Self [id number] WELLCARE [id number] SP [id number] [place] [id number] SP [id number] P MEDICARE [id number] SP [id number] A [place] [id number] SP [id number] P Medicaid Medigap Part B [id number] Self [id number] MEDICARE - [facility] [id number] S [id number] Medicaid Medigap Part B [id number] 25.0 Self [id number] Medicaid Medigap Part B [id number] 25.0 Self [id number] Medicaid Medigap Part B [id number] 25.0 Self [id number] Medicaid Medigap Part B [id number] 25.0 Self [id number] MEDICARE PART A -O/P [id number] 18 [id number] Medicaid Medigap Part B [id number] 25.0 Self [id number] MEDICARE PART A-CLINIC [id number] 18 [id number] Medicaid Medigap Part B [id number] 25.0 Self [id number] Medicaid Medigap Part B [id number] 25.0 Self [id number] Medicaid Medigap Part B [id number] Self 1 1 Medicaid Medigap Part B [id number] 25.0 Self [id number] MEDICAID [id number] SP [id number] Problems, Conditions, and Diagnoses No Information Surgeries/Procedures Procedure Description Date Indications Data Source(s) Chronic Care MGMT 20 Mins Clinical Staff Time Per Calendar [facility] 01/10/2021 12:00:00 AM EDT [facility] ([facility] ) Chronic Care MGMT 20 Mins Clinical Staff Time Per Calendar [facility] 11/14/2020 12:00:00 AM EDT [facility] ([facility] ) Chronic Care MGMT 20 Mins Clinical Staff Time Per Calendar [facility] 10/13/2020 12:00:00 AM EDT [facility] ([facility] ) Complex Chronic Care Management SVC 1St 60 Min 021 12:00:00 AM EDT [facility] ([facility]) Complex Chronic Care MGMT Service Ea Addl 30 Min 09/27 12:00:00 AM EDT [facility] ([facility]) Complex Chronic Care Management SVC 1St 60 Min 021 12:00:00 AM EDT [facility] ([facility]) Complex Chronic Care MGMT Service Ea Addl 30 Min 09/09 12:00:00 AM EDT [facility] ([facility]) Results ID Date Data Source [id number] 02/17/2021 09:11:00 AM EDT [facility] Name Value Range Interpretation Code Description Data Caroline rce(s) Supporting Document(s) Natriuretic peptide B [Mass/volume] in Serum or Plasma 74.4 pg/mL 0.0 -100.0 [facility]) ID Date Data Source [id number] 02/17/2021 09:11:00 AM EDT [facility] ([facility]) Name Value Range Interpretation Code Description Data Caroline rce(s) Supporting Document(s) Glucose [Mass/volume] in Serum or Plasma 111 mg/dL 74-99 [facility] ([facility]) 100-125 mg/dL PRE-DIABETES/FASTING >126 mg/dL DIABETES/FASTING Urea nitrogen [Mass/volume] in Serum or Plasma 12 mg/dL 7-18 [facility] ([facility]) Sodium [Moles/volume] in Serum or Plasma 143 meq/L 136-145 [facility] ([facility]) Potassium [Moles/volume] in Serum or Plasma 4.0 meq/L 3.5-5.1 [facility] ([facility]) Creatinine 0.9 mg/dL 0.6-1.3 [facility] ([facility]) Carbon dioxide, total [Moles/volume] in Serum or Plasma 35 meq/L 21 -32 [facility] ([facility]) Calcium [Mass/volume] in Serum or Plasma 9.4 mg/dL 8.5-10.1 [facility] ([facility]) Chloride [Moles/volume] in Serum or Plasma 102 meq/L 98-107 [facility] Glomerular filtration rate/1.73 sq M pre dicted among non-blacks [Volume Rate/Area] in Serum or Plasma by Creatinine-based formula (MDRD) 60 mL/min [facility] Glomerular filtration rate/1.73 sq M pre dicted among blacks [Volume Rate/Area] in Serum or Plasma by Creatinine-based formula (MDRD) Laboratory test result [facility] <content>CHRONIC KIDNEY DISEASE STAGING PER NKF</content>
<content></content>
<content>STAGE I & II GFR >= 60 NORMAL TO MILDLY DECREASED</content>
<content>STAGE III GFR 30-59 MODERATELY DECREASED</content>
<content>STAGE IV GFR 15-29 SEVERELY DECREASED</content>
<content>STAGE V GFR <15 VERY LITTLE GFR LEFT</content>
<content>ESRD GFR <15 ON CLINICAL DOCUMENTATION IMPROVEMENT SPECIALIST</content>
<content></content> ID Date Data Source [id number] 08/12/2020 09:52:00 AM EDT [facility] ([facility]) Name Value Range Interpretation Code Description Data Caroline rce(s) Supporting Document(s) Ferritin [Mass/volume] in Serum or Plasma 37 ng/mL 8-252 [facility] ([facility]) ID Date Data Source [id number] 08/12/2020 09:52:00 AM EDT [facility] ([facility]) Name Value Range Interpretation Code Description Data Caroline rce(s) Supporting Document(s) Total Iron Binding Capacity 334 ug/dL 250-450 [facility] ([facility]) Iron (Fe) 62 ug/dL 50-170 [facility]) Percent Saturation 18.6 % 13.2-45.0 [facility] ([facility]) ID Date Data Source [id number] 08/12/2020 09:50:00 AM EDT [facility] ([facility]) Name Value Range Interpretation Code Description Data Caroline rce(s) Supporting Document(s) Urine Creatinine 171.5 mg/dL 30.0-125.0 [facility] ([facility]) Microalbumin Urine 25.4 mg/L 1.3-20.0 [facility] ([facility]) Microalb/Creat Ratio 14.8 ug/mg 0.0-30.0 [facility] ( [facility]) ID Date Data Source [id number] 08/12/2020 09:50:00 AM EDT [facility] ([facility]) Name Value Range Interpretation Code Description Data Caroline rce(s) Supporting Document(s) Cholesterol [Mass/volume] in Serum or Plasma 160 mg/dL 131-200 [facility] ([facility]) Cholesterol in LDL [Mass/volume] in Serum or Plasma by calcu lation 88 CALC 50-159 [facility] ([facility]) Cholesterol in HDL [Mass/volume] in Serum or Plasma 46 mg/dL 35-60 [facility] ([facility]) Triglyceride [Mass/volume] in Serum or Plasma 131 mg/dL 30-150 [facility] ([facility]) ID Date Data Source [id number] 08/12/2020 09:50:00 AM EDT [facility] ([facility]) Name Value Range Interpretation Code Description Data Caroline rce(s) Supporting Document(s) Glucose [Mass/volume] in Serum or Plasma 94 mg/dL 74-99 [facility] ([facility]) 100-125 mg/dL PRE-DIABETES/FASTING >126 mg/dL DIABETES/FASTING Urea nitrogen [Mass/volume] in Serum or Plasma 11 mg/dL 7-18 [facility] ([facility]) Creatinine 0.9 mg/dL 0.6-1.3 [facility] ([facility]) Sodium [Moles/volume] in Serum or Plasma 141 meq/L 136-145 [facility] ([facility]) Chloride [Moles/volume] in Serum or Plasma 103 meq/L 98-107 [facility] ([facility]) Potassium [Moles/volume] in Serum or Plasma 4.0 meq/L 3.5-5.1 [facility] ([facility]) Calcium [Mass/volume] in Serum or Plasma 8.9 mg/dL 8.5-10.1 [facility] ([facility]) Alkaline phosphatase isoenzyme [Units/volume] in Serum or Pl asma 122 mg/dL 46-116 [facility] ([facility]) Carbon dioxide, total [Moles/volume] in Serum or Plasma 32 meq/L 21 -32 [facility] ([facility]) Aspartate aminotransferase [Enzymatic activity/volume] in Serum or Plasma 15 U/L 15-37 [facility] ([facility] ) Total Bilirubin 0.5 mg/dL 0.2-1.0 [facility] ([facility]) Alanine aminotransferase [Enzymatic activity/volume] in Seru m or Plasma 17 U/L 12-78 [facility] ([facility]) Albumin [Mass/volume] in Serum or Plasma 3.1 g/dL 3.4-5.0 [facility] ([facility]) Proteinase 3 Ab [Units/volume] in Serum 7.8 g/dL 6.4-8.2 [facility] A/G Ratio 0.66 CALC 1.00-1.90 [facility] Glomerular filtration rate/1.73 sq M pre dicted among non-blacks [Volume Rate/Area] in Serum or Plasma by Creatinine-based formula (MDRD) 60 mL/min [facility] Glomerular filtration rate/1.73 sq M pre dicted among blacks [Volume Rate/Area] in Serum or Plasma by Creatinine-based formula (MDRD) Laboratory test result [facility] ([facility]) <content>CHRONIC KIDNEY DISEASE STAGING PER NKF</content>
<content></content>
<content>STAGE I & II GFR >= 60 NORMAL TO MILDLY DECREASED</content>
<content>STAGE III GFR 30-59 MODERATELY DECREASED</content>
<content>STAGE IV GFR 15-29 SEVERELY DECREASED</content>
<content>STAGE V GFR <15 VERY LITTLE GFR LEFT</content>
<content>ESRD GFR <15 ON CLINICAL DOCUMENTATION IMPROVEMENT SPECIALIST</content>
<content></content> ID Date Data Source [id number] 08/12/2020 09:50:00 AM EDT [facility] Name Value Range Interpretation Code Description Data Caroline rce(s) Supporting Document(s) Hemoglobin A1c/Hemoglobin.total in Blood 6.3 % [facility] ([facility]) Lab Result Notes: Pre-Diabetes 5.7 - 6.4 % Diabetes = or > 6.5% Glucose mean value [Mass/volume] in Blood Estimated fr om glycated hemoglobin 134 mg/dL 60-110 [facility] ([facility] ) ID Date Data Source [id number] 08/12/2020 09:50:00 AM EDT [facility]) Name Value Range Interpretation Code Description Data Caroline rce(s) Supporting Document(s) Leukocytes [#/volume] in Blood by Automated count 7.6 x10*3/UL 4.1-10 .9 [facility] Hemoglobin [Mass/volume] in Blood 14.1 g/dL 12.0-18.0 [facility] ([facility]) Erythrocytes [#/volume] in Blood by Automated count 4.72 x10*6/UL 4.2 0-6.30 [facility] Hematocrit [Volume Fraction] of Blood by Automated count 42.9 % 3 7.0-51.0 [facility] ([facility]) MCH 30.0 pg 26.0-32.0 [facility]) MCV 90.8 fL 80.0-97.0 [facility] ([facility]) MCHC 33.0 g/dL 31.0-38.0 [facility] ([facility]) Platelets [#/volume] in Blood by Automated count 415 x10*3/UL 140-440 [facility] Erythrocyte distribution width [Ratio] by Automated count 13.5 % 11.6-13.7 [facility] ([facility]) Lymph % 22.9 % 10.0-58.5 [facility]) MPV 8.0 FL 7.8-11.0 [facility] ([facility]) Lymph # 1.7 x10*3/UL 0.6-4.1 [facility] ([facility]) Neut % 72.0 % 37.0-92.0 [facility] ([facility]) Mid % 5.1 % 1.7-9.3 [facility] ([facility]) Neut # 5.5 x10*3/UL 2.0-7.8 [facility] ([facility]) Mid # 0.4 x10*3/UL 0.1-0.6 [facility] ([facility]) ID Date Data Source [id number] 02/02/2020 12:59:00 PM EDT [facility] ([facility]) Name Value Range Interpretation Code Description Data Caroline rce(s) Supporting Document(s) Glucose [Mass/volume] in Serum or Plasma 113 mg/dL 74-99 [facility] ([facility]) 100-125 mg/dL PRE-DIABETES/FASTING >126 mg/dL DIABETES/FASTING Urea nitrogen [Mass/volume] in Serum or Plasma 9 mg/dL 7-18 [facility] ([facility]) Sodium [Moles/volume] in Serum or Plasma 141 meq/L 136-145 [facility] ([facility]) Potassium [Moles/volume] in Serum or Plasma 3.7 meq/L 3.5-5.1 [facility] ([facility]) Creatinine 0.8 mg/dL 0.6-1.3 [facility] ([facility]) Carbon dioxide, total [Moles/volume] in Serum or Plasma 37 meq/L 21 -32 [facility] ([facility]) Chloride [Moles/volume] in Serum or Plasma 99 meq/L 98-107 [facility] ([facility]) Calcium [Mass/volume] in Serum or Plasma 9.1 mg/dL 8.5-10.1 [facility] ([facility]) Alkaline phosphatase isoenzyme [Units/volume] in Serum or Pl asma 100 mg/dL 46-116 [facility] ([facility]) Alanine aminotransferase [Enzymatic activity/volume] in Seru m or Plasma 19 U/L 12-78 [facility] ([facility]) Total Bilirubin 0.3 mg/dL 0.2-1.0 [facility] ([facility]) Aspartate aminotransferase [Enzymatic activity/volume] in Serum or Plasma 15 U/L 15-37 [facility] ([facility] ) A/G Ratio 0.71 CALC 1.00-1.90 [facility]) Proteinase 3 Ab [Units/volume] in Serum 7.2 g/dL 6.4-8.2 [facility] ([facility]) Albumin [Mass/volume] in Serum or Plasma 3.0 g/dL 3.4-5.0 [facility] ([facility]) Glomerular filtration rate/1.73 sq M pre dicted among blacks [Volume Rate/Area] in Serum or Plasma by Creatinine-based formula (MDRD) Laboratory test result [facility] <content>CHRONIC KIDNEY DISEASE STAGING PER NKF</content>
<content></content>
<content>STAGE I & II GFR >= 60 NORMAL TO MILDLY DECREASED</content>
<content>STAGE III GFR 30-59 MODERATELY DECREASED</content>
<content>STAGE IV GFR 15-29 SEVERELY DECREASED</content>
<content>STAGE V GFR <15 VERY LITTLE GFR LEFT</content>
<content>ESRD GFR <15 ON CLINICAL DOCUMENTATION IMPROVEMENT SPECIALIST</content>
<content></content> Glomerular filtration rate/1.73 sq M pre dicted among non-blacks [Volume Rate/Area] in Serum or Plasma by Creatinine-based formula (MDRD) Laboratory test [facility] ID Date Data Source [id number] 02/02/2020 12:59:00 PM EDT [facility]) Name Value Range Interpretation Code Description Data Caroline rce(s) Supporting Document(s) Erythrocyte sedimentation rate by Westergren method 29 mm/hr 0-15 [facility] ID Date Data Source [id number] 02/02/2020 12:59:00 PM EDT [facility] Name Value Range Interpretation Code Description Data Caroline rce(s) Supporting Document(s) Hemoglobin [Mass/volume] in Blood 14.3 g/dL 12.0-18.0 [facility] ([facility]) Erythrocytes [#/volume] in Blood by Automated count 4.90 x10*6/UL 4.2 0-6.30 [facility] Hematocrit [Volume Fraction] of Blood by Automated count 43.6 % 3 7.0-51.0 [facility] Leukocytes [#/volume] in Blood by Automated count 9.9 x10*3/UL 4.1-10 .9 [facility] NOTE: RESULT VERIFIED. MCV 89.0 fL 80.0-97.0 [facility] MCHC 32.9 g/dL 31.0-38.0 [facility] ([facility]) MCH 29.3 pg 26.0-32.0 [facility] Platelets [#/volume] in Blood by Automated count 364 x10*3/UL 140-440 [facility] ([facility]) Erythrocyte distribution width [Ratio] by Automated count 14.1 % 11.6-13.7 [facility] ([facility]) MPV 9.8 FL 7.8-11.0 [facility] Mid % 3.7 % 1.7-9.3 [facility] Neut % 84.9 % 37.0-92.0 [facility] Lymph % 11.4 % 10.0-58.5 [facility] Lymph # 1.1 x10*3/UL 0.6-4.1 [facility] ([facility]) Neut # 8.4 x10*3/UL 2.0-7.8 [facility] ([facility]) Mid # 0.4 x10*3/UL 0.1-0.6 [facility] ([facility]) Procedure Social History No Information Vital Signs ID Date Data Source UNK Name Value Range Interpretation Code Description Data Source(s) Systolic blood pressure 102 mm[Hg] 102 mm[Hg] [facility] ([facility]) Heart rate 67 /min 67 /min [facility] ([facility]) Diastolic blood pressure 60 mm[Hg] 60 mm[Hg] [facility] ([facility]) Body height 60 [in_i] 60 [in_i] [facility] ([facility]) 5'0" Oxygen saturation in Arterial blood by Pulse oximetry 91 % 91 % [facility] ([facility]) RM Air Diastolic blood pressure 60 mm[Hg] 60 mm[Hg] [facility] ([facility]) Systolic blood pressure 102 mm[Hg] 102 mm[Hg] M [facility] ([facility]) Heart rate 72 /min 72 /min [facility] ([facility]) Body height 60 [in_i] 60 [in_i] [facility] ([facility]) 5'0" Body weight 184.00 [lb_av] 184.00 [lb_av] [facility] ([facility]) wt at home Body mass index (BMI) [Ratio] 35.9 kg/m2 35.9 k g/m2 [facility] ([facility]) Systolic blood pressure 110 mm[Hg] 110 mm[Hg] [facility] ([facility]) Diastolic blood pressure 60 mm[Hg] 60 mm[Hg] [facility] ([facility]) Heart rate 78 /min 78 /min [facility] ([facility]) Body height 60 [in_i] 60 [in_i] [facility] ([facility]) 5'0"
[2021-03-03] MEDS ORDERED: PRAM1TAB7 PO (16:33)
[2021-03-03] MEDS ORDERED: SERT50TA29 PO (16:33)
[2021-03-03] MEDS ORDERED: GABA-283 PO (16:33)
[2021-03-03] MEDS ORDERED: FOLI1TAB11 PO (16:33)
[2021-03-03] MEDS ORDERED: POTA1TAB23 PO (16:33)
[2021-03-03] MEDS ORDERED: LORA-674 PO (16:33)
[2021-03-03] MEDS ORDERED: FERR32TA PO (16:33)
[2021-03-03] MEDS ORDERED: METO25TA PO (16:33)
[2021-03-03] MEDS ORDERED: SPIR-10 PO (16:33)
[2021-03-03] MEDS ORDERED: FAMO20TA5 PO (16:33)
[2021-03-03] MEDS ORDERED: TORS20TA2 PO (16:33)
[2021-03-03] MEDS ORDERED: HOME MED LIST COMPLETE! XX SCH (17:30)
--- NOTE | 2021-03-03 17:48 | HPEPDOC ---
[facility] Medical History & Physical Date of Admission Mar 03, 2021 Date of Service: Mar 03, 2021 History and Physical CHIEF COMPLAINT: found on the ground HISTORY OF PRESENT ILLNESS: pt is demented and unable to provide history and ros. 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 Pt was found on the ground, unable to ambulate. Glucose 155. EKG: sinus, blood pressure 133mmhg sys tolic. Pt c/o left shoulder and right elbow pain with bruises on the left shoulder. Hospitalist was called to admit the pt for sepsis, rll pneumonia, uti, and mild rhabdomyolysis. 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 lives alone. no etoh, cigarette, drug use. FULL code FAMILY HISTORY: brother -hodgkins' lymphoma brother- cad/mi in his 60's mother- in her 90's father- in his 90's ALLERGIES: Please see below. REVIEW OF SYSTEMS:10 point ROS neg aside from + findings on HPI HOME MEDICATIONS: Please see below. PHYSICAL EXAMINATION: VITAL SIGNS: see below GENERAL APPEARANCE: alert and oriented to name only, confused, very hard of hearing. speaks in full sentences. edentulous no cyanosis/pallor or icterus HEENT: moist mm face symmetric no jvd no cervical LAD CARDIOVASCULAR: S1S2 RRR no S3 LUNGS: CTAB AEBE no kyphosis ABDOMEN: +bs soft nt nd EXTREMITIES:left shoulder ecchymosis , bl knee well-healed scars ,varicosities no pitting edema, cyanosis, or clubbing. NEURO: gait not tested face symmetric, speech fluent, motor 5/5/x 4 ext no sensory disturbance b/l ue le. dtrs intact throughout. neg babinski. aaox1 to person only, no pronator drift. LABORATORY DATA: See below. IMAGING:see below MICROBIOLOGY: Please see below. 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 Pt was found on the ground, unable to ambulate. Glucose 155. EKG: sinus, blood pressure 133mmhg systolic. Pt c/o left shoulder and right elbow pain with bruises on the left shoulder. Hospitalist was called to admit the pt for sepsis, rll pneumonia, uti, and mild rhabdomyolysis. Sepsis/UTI/RLL pneumonia r/o aspiration -ceftriaxone, azithromycin given in ER for pna. -urine legionella, urine strep ag, sputum cx, blood cx x2, mrsa screen -await urine cx -vanco for possible community acquired mrsa pna, dc vanco if negative mrsa screen, pharmacy to dose -ceftriaxone and iv doxy x 6days starting 03/04/21 to complete 7 day course -spirometry, acapella, prn 02 to keep sat 90% -monitor for aspiration, speech eval r/o aspiration -de-escalate abx once cx available Unwitnessed Fall/ possible syncope -tele, echo, fall precautions, assisted ambulation, pt/ot -hold diuretics due to sepsis and lactic acidosis. assess volume status in am. -neg ct head, ct cervical spine, humeral ,left elbow,pelvic, b/l knee xrays CHF Diastolic dysfunction w pEF, compensated -diuretics held due to sepsis w lactic acidosis -strict i/o -weigh daily -resume diuretics once infection is stable. HTN -hold diuretics while septic. reassess in am -avoid misa inh/arb, but if uncontrolled may use beta blockers since pt is tachycardic dyslipidemia -check lipid panel in am iron deficiency anemia -resume iron supplements allergic rhinitis -on loratadine IBS, irritable bowel syndrome,diverticulosis, GERD, gastritis, esophagitis,hemorrhoids -asx h/o endometrial ca s/p hysterectomy RA -resume chronic meds once respiratory infection resolves, and uti cleared. 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 bengay, lidocaine to affected areas code: full code Vital Signs Vital Signs Date Time Temp Pulse Resp B/P (MAP) Pulse Ox O2 Delivery O2 Flow Rate FiO2 03/03/21 16:15 84 151/66 (94) 94 03/03/21 15:00 98.0 03/03/21 12:46 20 Room Air Laboratory Data Labs 24H Laboratory Tests 2 03/03/21 12:57: Immature Granulocyte % (Auto) 1.0, Neutrophils (%) (Auto) 94.0H, Lymphocytes (%) (Auto) 2.2L, Monocytes (%) (Auto) 2.7, Eosinophils (%) (Auto) 0.0, Basophils (%) (Auto) 0.1, Neutrophils # (Auto) 25.3H, Lymphocytes # (Auto) 0.6L, Monocytes # (Auto) 0.7, Eosinophils # (Auto) 0.0, Basophils # (Auto) 0.0, Nucleated Red B lood Cells % (auto) 0.0, Anion Gap 11, Glomerular Filtration Rate 48.2, Calcium Level 9.2, Magnesium Level 2.0, Total Creatine Kinase 778H, Creatine Kinase MB 7.4H, Creatine Kinase MB Relative Index 0.95, Troponin I 0.02, Thyroid Stimulating Hormone (TSH) 2.920, Free Thyroxine 1.47H 03/03/21 13:58: Prothrombin Time 15.1H, Prothromb Time International Ratio 1.15, Activated Par tial Thromboplast Time 26.2 03/03/21 13:59: Lactic Acid Level 3.5*H 03/03/21 14:46: Coronavirus (COVID-19)(PCR) NEGATIVE, Influenza Type A (RT-PCR) NEGATIVE, Influenza Type B (RT-PCR) NEGATIVE, Respiratory Syncytial Virus (PCR) NEGATIVE 03/03/21 15:01: Urine Color STEPHANIE, Urine Appearance TURBIDH, Urine pH 5.0, Urine Specific [place] 1.018, Urine Protein 2+H, Urine Glucose (UA) NEGATIVE, Urine Ketones NEGATIVE, Urine Blood 1+H, Urine Nitrite POSITIVEH, Urine Bilirubin NEGATIVE, Urine Urobilinogen 4.0H, Urine Leukocyte Esterase 3+H, Urine WBC (Auto) TNTCH, Urine RBC (Auto) 8H, Urine Hyaline Casts (Auto) 0, Urine Bacteria (Auto) 3+H, Urine Squamous Epithelial Cells 0, Urine Sperm (Auto) CBC/BMP Laboratory Tests 03/03/21 12:57 Microbiology Microbiology 03/03/21 Urine Culture, Received Pending 03/03/21 Blood Culture, Received Pending 03/03/21 Blood Culture, Received Pending Home Medications Scheduled Famotidine (Famotidine) 20 Mg Tablet, 20 MG PO DAILY Ferrous Gluconate (Ferrous Gluconate) 324 Mg Tablet, 324 MG PO DAILY Folic Acid (Folic Acid) 1 Mg Tablet, 1 MG PO DAILY Gabapentin (Gabapentin) 400 Mg Capsule, 400 MG PO TID Loratadine (Loratadine) 10 Mg Tablet, 10 MG PO DAILY Metolazone (Metolazone) 2.5 Mg Tablet, 2.5 MG PO 2XW MON, THURS Potassium Chloride (Potassium Chloride) 10 Meq Tablet.er, 10 MEQ PO BID Pramipexole Di-HCl (Pramipexole Dihydrochloride) 1 Mg Tablet, 1 MG PO DAILY Sertraline HCl (Sertraline HCl) 50 Mg Tablet, 50 MG PO DAILY Spironolactone (Spironolactone) 25 Mg Tablet, 25 MG PO BID 2ND AT 1500 Torsemide (Torsemide) 20 Mg Tablet, 20 MG PO BID 2ND AT 1500 Allergies Coded Allergies: nabumetone (Verified Adverse Reaction, Intermediate, BLEEDING, 03/03/21) A-FIB/CHADSVASC A-FIB History Current/History of A-Fib/PAF?: No Current PO Anticoag Therapy: No Age/Risk Factor Scoring CHADSVASC: CHADSVASC Response (Comments) Value Age Risk Factor Age >/= 75 years old 2 Hx of CHF Yes 1 Hx of Stroke/TIA/or VTE No 0 Hx of Diabetes No 0 Hx of Vascular Disease No 0 Total 3 JUDITH ADHIKARI MD Mar 03, 2021 16:41
[2021-03-03 18:00] VITALS: BP 123/61
[2021-03-03] MEDS ORDERED: VANCOMYCIN HCL 1,000 MG, VIAL MATE ADAPTER 1 EACH in NS 250 ML IV SCH (18:00)
[2021-03-03 18:08] LABS: INR 1.24
[2021-03-03] MEDS ORDERED: VANCOMYCIN HCL 1,000 MG, VIAL MATE ADAPTER 1 EACH in NS 250 ML IV ONE (19:00)
[2021-03-03] MEDS: NS 1,000 ML IV SCH (19:31)
[2021-03-03] MEDS: LACTOBACILLUS ACIDOPHILUS CAP (BACID) PO SCH ×2 (19:32→22:54)
[2021-03-03 21:43] VITALS: BP 123/62
[2021-03-04] MEDS ORDERED: NS 500 ML IV ONE (00:35)
[2021-03-04] MEDS: LIDOCAINE 5% (LIDODERM) PATCH TD SCH ×2 (01:32→21:54)
[2021-03-04] MEDS: ACETAMINOPHEN TAB 650MG DOSE (2X325MG) PO PRN ×2 (01:33→21:59)
[2021-03-04] MEDS: NS 1,000 ML IV SCH (01:55)
[2021-03-04] MEDS: DOXYCYCLINE HYCLATE 100 MG in D5W MINI-BAG PLUS 100 ML IV SCH ×2 (05:27→17:21)
[2021-03-04 06:00] VITALS: BP 127/81
[2021-03-04 07:09] LABS: BASO # 0.1 10^3/uL (0.0-0.2); BASO % 0.3 % (0.0-1.0); EOS # 0.1 10^3/uL (0.0-0.5); EOS % 0.3 % (0.0-3.0); HEMATOCRIT 34.8 % (36.0-47.0); LYMPH # 1.3 10^3/uL (1.5-5.0); LYMPH % 6.7 % (24.0-44.0); MEAN CORPUSCULAR HEMOGLOBIN 28.4 pg (27.0-33.0); MEAN CORPUSCULAR HGB CONC 31.6 g/dl (32.0-36.5); MEAN CORPUSCULAR VOLUME 89.9 fl (80.0-96.0); MONO # 0.9 10^3/uL (0.0-0.8); MONO % 4.6 % (2.0-8.0); NEUTROPHILS # 16.8 10^3/uL (1.5-8.5); NEUTROPHILS % 87.4 % (36.0-66.0); RED BLOOD COUNT 3.87 10^6/uL (4.00-5.40); WHITE BLOOD COUNT 19.3 10^3/uL (4.0-10.0)
[2021-03-04 07:16] LABS: PLATELET COUNT, AUTOMATED 369 10^3/uL (150-450)
[2021-03-04 07:52] LABS: BLOOD UREA NITROGEN 16 MG/DL (7-18); CALCIUM LEVEL 7.9 MG/DL (8.8-10.2); CARBON DIOXIDE LEVEL 32 MEQ/L (21-32); CHLORIDE LEVEL 100 MEQ/L (98-107); CREATININE FOR GFR 0.59 MG/DL (0.55-1.30); GLOMERULAR FILTRATION RATE > 60.0 (>32); GLUCOSE, FASTING 102 MG/DL (70-100); SODIUM LEVEL 139 MEQ/L (136-145)
--- NOTE | 2021-03-04 08:08 | ECGEPIP ---
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
[2021-03-04] MEDS: FERROUS GLUCONATE 324 MG TAB PO SCH (08:46)
[2021-03-04] MEDS: SERTRALINE HCL 50 MG TAB PO SCH (08:46)
[2021-03-04] MEDS: FOLIC ACID 1 MG TAB PO SCH (08:46)
[2021-03-04] MEDS: LACTOBACILLUS ACIDOPHILUS CAP (BACID) PO SCH ×4 (08:46→21:53)
[2021-03-04] MEDS: PRAMIPEXOLE 1 MG TAB PO SCH (08:46)
[2021-03-04] MEDS: LORATADINE 10 MG TAB PO SCH (08:46)
[2021-03-04] MEDS: **NOTE PATIENT COMMENT** MISC XX SCH (08:46)
[2021-03-04] MEDS: FAMOTIDINE 20 MG TAB PO SCH (08:46)
--- NOTE | 2021-03-04 13:51 | ECHO ---
ECHOCARDIOGRAM DATE OF PROCEDURE: 03/04/2021 Age: Gender: Female Height: 153 cm Weight: 90 kg REFERRING PHYSICIAN: Yina Garcia M.D. INDICATION: Syncope. MEASUREMENTS: IVS 1.0 cm LV 4.3 cm LVPW 1.1 cm LA 4.3 cm Aorta 3.2 cm RV 3.5 cm IVC 2.0 cm Mitral E wave velocity 76 A wave 99 E prime septal 6.6 E prime lateral 7.1 FINDINGS: This study is of fair technical quality with challenging visualization corresponding to patient's body habitus. Underlying sinus rhythm. Left ventricle is normal size and overall normal systolic function based on limited views. I estimated ejection fraction (EF) around 65-70%. No segmental wall motion abnormalities are appreciated. Right ventricle is normal size and systolic function. Left atrium is at least mildly enlarged. Right atrium was poorly visualized. Aortic valve is minimally sclerotic, but mobility is preserved. Mitral and tricuspid valves appear grossly normal. Pulmonic valve was not seen. No pericardial effusion, but small amount of pericardial fat pad is noted. Inferior vena cava is upper limits of normal size with limited collapse with inspiration, indicative of at least mildly elevated central venous pressure. Aortic root is normal. Aortic arch and abdominal aorta were not well visualized. Doppler interrogation reveals competent aortic and mitral valves. There is trace tricuspid insufficiency. Calculated pulmonary artery pressure is in the 30s, corresponding to mild pulmonary hypertension. Mitral inflow pattern and tissue Doppler imaging of mitral annulus reveal grade 1 diastolic dysfunction. CONCLUSIONS: 1. Study is of fair technical quality. Underlying sinus rhythm. 2. Normal left ventricular (LV) size with normal LV systolic function and grade 1 diastolic dysfunction. 3. No hemodynamically significant valvular disease. 4. Suggestive of at least mildly elevated central venous pressure and at least mild pulmonary hypertension. 5. Small amount of pericardial fat pad. 6. No findings to provide obvious etiology of syncope. MTDD
[2021-03-04 14:00] VITALS: BP 119/66
--- NOTE | 2021-03-04 15:20 | IPNPDOC ---
Subjective Date Seen The patient was seen on 03/04/21. Subjective Chief Complaint/HPI Mrs. Tapia is an 85-year-old female with rheumatoid arthritis, irritable bowel syndrome, and generalized anxiety disorder who was found on the ground and found to have right upper lobe pneumonia and UTI. Patient was seen this morning. She denied any chest pain or dyspnea. With nurse, she appears to have a small hard cyst in the sacral region. She denies any pain when she is sitting. Will monitor for now and continue with antibiotic Objective Physical Examination General Exam: Positive: Alert, Cooperative Eye Exam: Negative: Sclera icteric ENT Exam: Positive: Atraumatic Neck Exam: Positive: Supple Chest Exam: Positive: Clear to auscultation Heart Exam: Positive: Rate Normal Abdomen Exam: Positive: Normal bowel sounds, Soft; Negative: Tenderness Extremity Exam: Negative: Edema Neuro Exam: Positive: Normal Speech Psych Exam: Positive: Mood NL Assessment /Plan Assessment Mrs. Tapia is an 85-year-old female with rheumatoid arthritis, irritable bowel syndrome, and generalized anxiety disorder who was found on the ground and found to have right upper lobe pneumonia and UTI. She may have had a fall secondary to infection. We will continue with antibiotics pending urine culture results. Plan/VTE VTE Prophylaxis Ordered?: Yes Plan 1. Unwitnessed fall Possibly syncope due to infection Monitor on telemetry Echocardiogram demonstrates no obvious etiology of syncope. EF 65 to 70%. G rade 1 diastolic dysfunction. Treat underlying infections 2. UTI UA positive for nitrates and leuk esterase Pending urine culture results Ceftriaxone day 2 3. Right upper lobe pneumonia Seen on imaging Ceftriaxone and doxycycline day 2 We will order a procalcitonin for tomorrow morning 4. Heart failure with preserved ejection fraction Patient appears to be euvolemic Diuretics held due to lactic acidosis We will resume diuretics when patient is more stable 5. GERD Continue famotidine 6. Restless leg syndrome Continue pramipexole 7. DVT prophylaxis Lovenox Disposition: Pending urine culture and clinical improvement VS, I&O, 24H, Fishbone Vital Signs/I&O Vital Signs Date Time Temp Pulse Resp B/P (MAP) Pulse Ox O2 Delivery O2 Flow Rate FiO2 03/04/21 14:00 98.7 77 18 119/66 (83) 93 Nasal Cannula 1.0 I&O- Last 24 Hours up to 6 AM 03/04/21 06:00 Intake Total 2915 ml Output Total 0 ml Balance 2915 ml Laboratory Data 24H LABS Laboratory Tests 2 03/03/21 17:36: Prothrombin Time 16.0H, Prothromb Time International Ratio 1.24 03/03/21 18:35: Lactic Acid Followup at 4 Hours 2.3*H 03/03/21 20:54: Methicillin-Resist S.aureus DNA PCR NOT DETECTED 03/03/21 22:50: Lactic Acid Level 2.6*H 03/04/21 06:32: Lactic Acid Level 1.8 03/04/21 06:33: Anion Gap 7L, Glomerular Filtration Rate > 60.0, Calcium Level 7.9L 03/04/21 06:37: Immature Granulocyte % (Auto) 0.7, Neutrophils (%) (Auto) 87.4H, Lymphocytes (%) (Auto) 6.7L, Monocytes (%) (Auto) 4.6, Eosinophils (%) (Auto) 0.3, Basophils (%) (Auto) 0.3, Neutrophils # (Auto) 16.8H, Lymphocytes # (Auto) 1.3L, Monocytes # (Auto) 0.9H, Eosinophils # (Auto) 0.1, Basophils # (Auto) 0.1, Nucleated Red Blood Cells % (auto) 0.0 CBC/BMP Laboratory Tests 03/04/21 06:33 03/04/21 06:37 Microbiology Microbiology 03/04/21 Gram Stain - Final, Resulted 03/04/21 Sputum Culture, Resulted Pending 03/03/21 Urine Culture, Received Pending 03/03/21 Blood Culture - Preliminary, Resulted No growth after 24 hours . All specim... 03/03/21 Blood Culture - Preliminary, Resulted No growth after 24 hours . All specim... NAYELI FORBES DO Mar 04, 2021 15:20
[2021-03-04] MEDS: ENOXAPARIN 40MG/0.4ML SYRINGE (J1650 PER 10MG) SC SCH (15:37)
[2021-03-04] MEDS ORDERED: cefTRIAXone SOD 2 GM in D5W MINI-BAG PLUS 50 ML IV SCH (16:00)
[2021-03-04] MEDS ORDERED: POTASSIUM CHLORIDE 10MEQ SR TABLET PO ONE (16:00)
[2021-03-04 22:00] VITALS: BP 123/58
[2021-03-04] MEDS ORDERED: IPRATROPIUM 0.5MG/ALBUTEROL 2.5MG INH SOL UD 3ML (DUONEB) NEB PRN (22:15)
[2021-03-05 06:00] VITALS: BP 149/77
[2021-03-05] MEDS: DOXYCYCLINE HYCLATE 100 MG in D5W MINI-BAG PLUS 100 ML IV SCH (06:40)
[2021-03-05 08:29] LABS: BASO % 0.4 % (0.0-1.0); EOS # 0.4 10^3/uL (0.0-0.5); EOS % 4.9 % (0.0-3.0); HEMATOCRIT 33.9 % (36.0-47.0); HEMOGLOBIN 10.6 g/dl (12.0-15.5); LYMPH % 12.8 % (24.0-44.0); MEAN CORPUSCULAR HEMOGLOBIN 28.3 pg (27.0-33.0); MEAN CORPUSCULAR HGB CONC 31.3 g/dl (32.0-36.5); MEAN CORPUSCULAR VOLUME 90.4 fl (80.0-96.0); MONO # 0.4 10^3/uL (0.0-0.8); MONO % 5.1 % (2.0-8.0); NEUTROPHILS # 6.2 10^3/uL (1.5-8.5); NEUTROPHILS % 76.2 % (36.0-66.0); PLATELET COUNT, AUTOMATED 351 10^3/uL (150-450); RED BLOOD COUNT 3.75 10^6/uL (4.00-5.40); WHITE BLOOD COUNT 8.1 10^3/uL (4.0-10.0)
[2021-03-05] MEDS: ACETAMINOPHEN TAB 650MG DOSE (2X325MG) PO PRN (08:38)
[2021-03-05] MEDS: LORATADINE 10 MG TAB PO SCH (08:38)
[2021-03-05] MEDS: FERROUS GLUCONATE 324 MG TAB PO SCH (08:38)
[2021-03-05] MEDS: LACTOBACILLUS ACIDOPHILUS CAP (BACID) PO SCH ×4 (08:38→21:27)
[2021-03-05] MEDS: PRAMIPEXOLE 1 MG TAB PO SCH (08:38)
[2021-03-05] MEDS: SERTRALINE HCL 50 MG TAB PO SCH (08:38)
[2021-03-05] MEDS: FOLIC ACID 1 MG TAB PO SCH (08:38)
[2021-03-05] MEDS: **NOTE PATIENT COMMENT** MISC XX SCH (08:39)
[2021-03-05] MEDS: ENOXAPARIN 40MG/0.4ML SYRINGE (J1650 PER 10MG) SC SCH ×2 (08:39→09:00)
[2021-03-05 09:02] LABS: BLOOD UREA NITROGEN 12 MG/DL (7-18); CALCIUM LEVEL 8.6 MG/DL (8.8-10.2); CARBON DIOXIDE LEVEL 32 MEQ/L (21-32); CHLORIDE LEVEL 103 MEQ/L (98-107); GLOMERULAR FILTRATION RATE > 60.0 (>32); GLUCOSE, FASTING 108 MG/DL (70-100); POTASSIUM SERUM 2.7 MEQ/L (3.5-5.1); SODIUM LEVEL 140 MEQ/L (136-145)
[2021-03-05] MEDS ORDERED: NS 1,000 ML IV SCH (09:15)
--- NOTE | 2021-03-05 09:39 | REP ---
INDICATION: Wheezy, crackles in lung COMPARISON: 03/03/2021 TECHNIQUE: Portable AP view of the chest FINDINGS: The mediastinum and cardiac silhouette are stable and within normal limits for portable technique. The lung rodrigues demonstrate chronic appearing changes similar to prior examination. Subtle right basilar atelectasis cannot be excluded. No focal consolidation. No effusion. No pneumothorax. Skeletal structures are stable. IMPRESSION: Chronic stable changes. Cannot exclude trace right basilar atelectasis. <Electronically signed by Collins Chapman > 03/05/21 0917
[2021-03-05 09:52] LABS: MAGNESIUM LEVEL 2.1 MG/DL (1.8-2.4)
[2021-03-05] MEDS ORDERED: KCL 10MEQ/100ML SWI (KRUN) 10 MEQ in IV 1 EA IV SCH (10:00)
[2021-03-05] MEDS ORDERED: KCL 40MEQ in NS 1000ML 1,000 ML IV SCH (11:00)
[2021-03-05] MEDS ORDERED: POTASSIUM CHLORIDE 10MEQ SR TABLET PO ONE ×2 (11:00→13:00)
[2021-03-05] MEDS: oxyCODONE 5MG TAB PO PRN ×2 (12:13→21:28)
[2021-03-05] MEDS: CEFDINIR 300 MG CAP (OMNICEF) PO SCH ×2 (12:42→21:27)
[2021-03-05 14:00] VITALS: BP 122/67
[2021-03-05 16:38] LABS: BLOOD UREA NITROGEN 14 MG/DL (7-18); CALCIUM LEVEL 8.8 MG/DL (8.8-10.2); CARBON DIOXIDE LEVEL 33 MEQ/L (21-32); CHLORIDE LEVEL 103 MEQ/L (98-107); CREATININE FOR GFR 0.69 MG/DL (0.55-1.30); GLOMERULAR FILTRATION RATE > 60.0 (>32); GLUCOSE, FASTING 98 MG/DL (70-100); POTASSIUM SERUM 3.6 MEQ/L (3.5-5.1); SODIUM LEVEL 140 MEQ/L (136-145)
--- NOTE | 2021-03-05 17:25 | IPNPDOC ---
Subjective Date Seen The patient was seen on 03/05/21. Subjective Chief Complaint/HPI Mrs. Tapia is an 85-year-old female with rheumatoid arthritis, irritable bowel syndrome, and generalized anxiety disorder who was found on the ground and found to have right upper lobe pneumonia and UTI. This morning, patient was feeling worse. She was wheezing and had diffuse pain and tenderness everywhere. Patient was put on duo nebs overnight which did help with the wheezing. Due to patient's hypokalemia attempted to give IV potassium but patient cannot tolerate. Switch patient to oral potassium and gave 2 doses about 2 hours apar t. Discontinued IV and switch patient to oral antibiotics. Also started patient on oxycodone which did help with her diffuse pain. Repeat BMP shows much improvement in potassium. Repeat chest x-ray is stable. Objective Physical Examination General Exam: Positive: Alert, Cooperative Eye Exam: Negative: Sclera icteric ENT Exam: Positive: Atraumatic Neck Exam: Positive: Supple Chest Exam: Positive: Wheezing Heart Exam: Positive: Rate Normal Abdomen Exam: Positive: Normal bowel sounds, Soft; Negative: Tenderness Extremity Exam: Negative: Edema Neuro Exam: Positive: Normal Speech Psych Exam: Positive: Mood NL Assessment /Plan Assessment Mrs. Tapia is an 85-year-old female with rheumatoid arthritis, irritable bowel syndrome, and generalized anxiety disorder who was found on the ground and found to have right upper lobe pneumonia and UTI. She may have had a fall secondary to infection. Urine culture grew pansensitive E. coli. Plan/VTE VTE Prophylaxis Ordered?: Yes Plan 1. Unwitnessed fall Possibly syncope due to infection Monitor on telemetry Echocardiogram demonstrates no obvious etiology of syncope. EF 65 to 70%. Grade 1 diastolic dysfunction. Treat underlying infections 2. E. coli UTI UA positive for nitrates and leuk esterase Urine culture grew pansensitive E. coli Cefdinir day 3 3. Right upper lobe pneumonia Seen on imaging Ceftriaxone and doxycycline day 3 4. Heart failure with preserved ejection fraction Patient appears to be euvolemic Diuretics held due to lactic acidosis We will resume diuretics when patient is more stable 5. GERD Continue famotidine 6. Restless leg syndrome Continue pramipexole 7. DVT prophylaxis Lovenox Disposition: Pending improvement in clinical status. Otherwise, physical therapy recommended rehab. VS, I&O, 24H, Fishbone Vital Signs/I&O Vital Signs Date Time Temp Pulse Resp B/P (MAP) Pulse Ox O2 Delivery O2 Flow Rate FiO2 03/05/21 14:00 97.3 74 17 122/67 (85) 90 Nasal Cannula 2.0 I&O- Last 24 Hours up to 6 AM 03/05/21 06:00 Intake Total 1485 ml Output Total 50 ml Balance 1435 ml Laboratory Data 24H LABS Laboratory Tests 2 03/05/21 08:05: Immature Granulocyte % (Auto) 0.6, Neutrophils (%) (Auto) 76.2H, Lymphocytes (%) (Auto) 12.8L, Monocytes (%) (Auto) 5.1, Eosinophils (%) (Auto) 4.9H, Basophils ( %) (Auto) 0.4, Neutrophils # (Auto) 6.2, Lymphocytes # (Auto) 1.0L, Monocytes # (Auto) 0.4, Eosinophils # (Auto) 0.4, Basophils # (Auto) 0.0, Nucleated Red Blood Cells % (auto) 0.0, Anion Gap 5L, Glomerular Filtration Rate > 60.0, Calcium Level 8.6L, Magnesium Level 2.1, Procalcitonin 1.06 03/05/21 15:52: Anion Gap 4L, Glomerular Filtration Rate > 60.0, Calcium Level 8.8 CBC/BMP Laboratory Tests 03/05/21 08:05 03/05/21 15:52 Microbiology Microbiology 03/04/21 Gram Stain - Final, Resulted 03/04/21 Sputum Culture, Resulted Pending 03/03/21 Urine Culture - Final, Complete Escherichia Coli 03/03/21 Blood Culture - Preliminary, Resulted No Growth after 48 hours. All Specime... 03/03/21 Blood Culture - Preliminary, Resulted No Growth after 48 hours. All Specime... NAYELI FORBES DO Mar 05, 2021 17:25
[2021-03-05] MEDS: IPRATROPIUM 0.5MG/ALBUTEROL 2.5MG INH SOL UD 3ML (DUONEB) NEB PRN (18:16)
[2021-03-05 19:41] VITALS: BP 122/68
[2021-03-05] MEDS: LIDOCAINE 5% (LIDODERM) PATCH TD SCH (21:27)
[2021-03-05] MEDS: DOXYCYCLINE HYCLATE 100MG TABLET PO SCH (21:27)
[2021-03-05 22:00] VITALS: BP 121/65
[2021-03-06 06:00] VITALS: BP 120/65
[2021-03-06 06:15] LABS: BASO # 0.1 10^3/uL (0.0-0.2); BASO % 0.8 % (0.0-1.0); EOS # 0.5 10^3/uL (0.0-0.5); EOS % 7.1 % (0.0-3.0); HEMATOCRIT 34.1 % (36.0-47.0); HEMOGLOBIN 10.3 g/dl (12.0-15.5); LYMPH # 1.1 10^3/uL (1.5-5.0); LYMPH % 15.3 % (24.0-44.0); MEAN CORPUSCULAR HGB CONC 30.2 g/dl (32.0-36.5); MEAN CORPUSCULAR VOLUME 92.7 fl (80.0-96.0); MONO # 0.5 10^3/uL (0.0-0.8); MONO % 6.4 % (2.0-8.0); NEUTROPHILS # 5.1 10^3/uL (1.5-8.5); NEUTROPHILS % 69.9 % (36.0-66.0); PLATELET COUNT, AUTOMATED 353 10^3/uL (150-450); RED BLOOD COUNT 3.68 10^6/uL (4.00-5.40); WHITE BLOOD COUNT 7.3 10^3/uL (4.0-10.0)
[2021-03-06 06:34] LABS: BLOOD UREA NITROGEN 11 MG/DL (7-18); CALCIUM LEVEL 8.4 MG/DL (8.8-10.2); CARBON DIOXIDE LEVEL 34 MEQ/L (21-32); CHLORIDE LEVEL 107 MEQ/L (98-107); CREATININE FOR GFR 0.53 MG/DL (0.55-1.30); GLOMERULAR FILTRATION RATE > 60.0 (>32); GLUCOSE, FASTING 82 MG/DL (70-100); POTASSIUM SERUM 3.7 MEQ/L (3.5-5.1); SODIUM LEVEL 144 MEQ/L (136-145)
[2021-03-06] MEDS: SERTRALINE HCL 50 MG TAB PO SCH (08:54)
[2021-03-06] MEDS: predniSONE 20 MG TAB PO SCH (08:54)
[2021-03-06] MEDS: LACTOBACILLUS ACIDOPHILUS CAP (BACID) PO SCH ×4 (08:54→20:37)
[2021-03-06] MEDS: DOXYCYCLINE HYCLATE 100MG TABLET PO SCH ×2 (08:54→20:37)
[2021-03-06] MEDS: LORATADINE 10 MG TAB PO SCH (08:54)
[2021-03-06] MEDS: CEFDINIR 300 MG CAP (OMNICEF) PO SCH ×2 (08:54→20:37)
[2021-03-06] MEDS: FOLIC ACID 1 MG TAB PO SCH (08:54)
[2021-03-06] MEDS: PRAMIPEXOLE 1 MG TAB PO SCH (08:54)
[2021-03-06] MEDS: FAMOTIDINE 20 MG TAB PO SCH (08:54)
[2021-03-06] MEDS: ENOXAPARIN 40MG/0.4ML SYRINGE (J1650 PER 10MG) SC SCH (08:55)
[2021-03-06] MEDS: ACETAMINOPHEN TAB 650MG DOSE (2X325MG) PO PRN (08:55)
[2021-03-06] MEDS: **NOTE PATIENT COMMENT** MISC XX SCH (08:58)
[2021-03-06] MEDS: FERROUS GLUCONATE 324 MG TAB PO SCH (12:05)
[2021-03-06] MEDS: IPRATROPIUM 0.5MG/ALBUTEROL 2.5MG INH SOL UD 3ML (DUONEB) NEB PRN (17:36)
--- NOTE | 2021-03-06 19:01 | IPNPDOC ---
Subjective Date Seen The patient was seen on 03/06/21. Subjective Chief Complaint/HPI Mrs. Tapia is an 85-year-old female with rheumatoid arthritis, irritable bowel syndrome, and generalized anxiety disorder who was found on the ground and found to have right upper lobe pneumonia and UTI. This morning she still required oxygen and she was still wheezy. Patient was started on steroids. Otherwise, she denies any chest pain or dyspnea. She worked with physical therapy and occupational therapy who both recommended continued rehab Objective Physical Examination General Exam: Positive: Alert, Cooperative Eye Exam: Negative: Sclera icteric ENT Exam: Positive: Atraumatic Neck Exam: Positive: Supple Chest Exam: Positive: Wheezing Heart Exam: Positive: Rate Normal Abdomen Exam: Positive: Normal bowel sounds, Soft; Negative: Tenderness Extremity Exam: Negative: Edema Neuro Exam: Positive: Normal Speech Psych Exam: Positive: Mood NL Assessment /Plan Assessment Mrs. Tapia is an 85-year-old female with rheumatoid arthritis, irritable bowel syndrome, and generalized anxiety disorder who was found on the ground and found to have right upper lobe pneumonia and UTI. She may have had a fall secondary to infection. Urine culture grew pansensitive E. coli. Plan/VTE VTE Prophylaxis Ordered?: Yes Plan 1. Unwitnessed fall Possibly syncope due to infection Monitor on telemetry Echocardiogram demonstrates no obvious etiology of syncope. EF 65 to 70%. Grade 1 diastolic dysfunction. Treat underlying infections 2. E. coli UTI UA positive for nitrates and leuk esterase Urine culture grew pansensitive E. coli Cefdinir day 4 3. Right upper lobe pneumonia Seen on imaging Ceftriaxone and doxycycline day 4 Due to wheezing, patient was started on steroids 4. Heart failure with preserved ejection fraction Patient appears to be euvolemic Diuretics held due to lactic acidosis We will resume diuretics when patient is more stable 5. GERD Continue famotidine 6. Restless leg syndrome Continue pramipexole 7. DVT prophylaxis Lovenox Disposition: Pending improvement in clinical status and oxygen requirements. PT and OT evaluating patient. VS, I&O, 24H, Fishbone Vital Signs/I&O Vital Signs Date Time Temp Pulse Resp B/P (MAP) Pulse Ox O2 Delivery O2 Flow Rate FiO2 03/06/21 14:00 97.9 72 18 95 Nasal Cannula 2.0 03/06/21 06:00 120/65 (83) I&O- Last 24 Hours up to 6 AM 03/06/21 06:00 Intake Total 1093 ml Balance 1093 ml Laboratory Data 24H LABS Laboratory Tests 2 03/06/21 05:46: Immature Granulocyte % (Auto) 0.5, Neutrophils (%) (Auto) 69.9H, Lymphocytes (%) (Auto) 15.3L, Monocytes (%) (Auto) 6.4, Eosinophils (%) (Auto) 7.1H, Basophils (%) (Auto) 0.8, Neutrophils # (Auto) 5.1, Lymphocytes # (Auto) 1.1L, Monocytes # (Auto) 0.5, Eosinophils # (Auto) 0.5, Basophils # (Auto) 0.1, Nucleated Red Blood Cells % (auto) 0.0, Anion Gap 3L, Glomerular Filtration Rate > 60.0, Calcium Level 8.4L CBC/BMP Laboratory Tests 03/06/21 05:46 Microbiology Microbiology 03/04/21 Gram Stain - Final, Complete 03/04/21 Sputum Culture - Final, Complete 03/03/21 Urine Culture - Final, Complete Escherichia Coli 03/03/21 Blood Culture - Preliminary, Resulted No Growth after 72 hours. All specime... 03/03/21 Blood Culture - Preliminary, Resulted No Growth after 72 hours. All specime... NAYELI FORBES DO Mar 06, 2021 19:01
[2021-03-06] MEDS: oxyCODONE 5MG TAB PO PRN (20:38)
[2021-03-06] MEDS: LIDOCAINE 5% (LIDODERM) PATCH TD SCH (21:00)
[2021-03-06 22:00] VITALS: BP 120/69
[2021-03-06] MEDS: RAMELTEON 8 MG TAB (ROZEREM) PO PRN (23:54)
[2021-03-07 06:00] VITALS: BP 147/81
[2021-03-07 07:09] LABS: BASO % 0.3 % (0.0-1.0); EOS # 0.1 10^3/uL (0.0-0.5); EOS % 1.4 % (0.0-3.0); HEMATOCRIT 33.2 % (36.0-47.0); HEMOGLOBIN 10.1 g/dl (12.0-15.5); LYMPH # 1.5 10^3/uL (1.5-5.0); LYMPH % 15.9 % (24.0-44.0); MEAN CORPUSCULAR HGB CONC 30.4 g/dl (32.0-36.5); MONO # 0.7 10^3/uL (0.0-0.8); MONO % 7.3 % (2.0-8.0); NEUTROPHILS # 6.9 10^3/uL (1.5-8.5); NEUTROPHILS % 74.6 % (36.0-66.0); PLATELET COUNT, AUTOMATED 367 10^3/uL (150-450); RED BLOOD COUNT 3.61 10^6/uL (4.00-5.40); WHITE BLOOD COUNT 9.3 10^3/uL (4.0-10.0)
[2021-03-07 07:41] LABS: BLOOD UREA NITROGEN 12 MG/DL (7-18); CALCIUM LEVEL 8.7 MG/DL (8.8-10.2); CARBON DIOXIDE LEVEL 33 MEQ/L (21-32); CHLORIDE LEVEL 104 MEQ/L (98-107); CREATININE FOR GFR 0.68 MG/DL (0.55-1.30); GLOMERULAR FILTRATION RATE > 60.0 (>32); GLUCOSE, FASTING 107 MG/DL (70-100); POTASSIUM SERUM 3.6 MEQ/L (3.5-5.1); SODIUM LEVEL 141 MEQ/L (136-145)
[2021-03-07] MEDS: **NOTE PATIENT COMMENT** MISC XX SCH (09:00)
[2021-03-07 09:20] VITALS: BP 132/83
[2021-03-07] MEDS: CEFDINIR 300 MG CAP (OMNICEF) PO SCH ×2 (09:38→21:42)
[2021-03-07] MEDS: ENOXAPARIN 40MG/0.4ML SYRINGE (J1650 PER 10MG) SC SCH (09:38)
[2021-03-07] MEDS: DOXYCYCLINE HYCLATE 100MG TABLET PO SCH ×2 (09:38→21:41)
[2021-03-07] MEDS: LORATADINE 10 MG TAB PO SCH (09:39)
[2021-03-07] MEDS: LACTOBACILLUS ACIDOPHILUS CAP (BACID) PO SCH ×4 (09:39→21:41)
[2021-03-07] MEDS: FOLIC ACID 1 MG TAB PO SCH (09:39)
--- NOTE | 2021-03-07 10:02 | IPN ---
PROGRESS NOTE DATE: 03/07/2021 SUBJECTIVE: The patient still complains of weakness requiring one person assist and shortness of breath and dyspnea on exertion requiring 95% on 2 liters nasal cannula. She has a cough productive of white sputum. No fever or chills overnight. No chest pain, pressure, tightness, nausea, vomiting, headache or diarrhea. OBJECTIVE: VITAL SIGNS: Temperature 97.6, pulse is 81, respiratory rate 20, blood pressure is 147/81, 95% on 2 liters nasal cannula. GENERAL: Patient is slightly hard of hearing. Awake, alert and oriented and answering questions appropriately. HEENT: Face is symmetric. Tongue is midline. Moist mucous membranes. LUNGS: Diminished with faint expiratory wheezing. HEART: S1 and S2, sinus rhythm. ABDOMEN: Soft, nontender and nondistended. Obese abdomen. EXTREMITIES: No cyanosis, clubbing or pitting edema. LABORATORY DATA/MICROBIOLOGY: Please see the chart. ASSESSMENT AND PLAN: This is an 85-year-old female admitted on 03/03/21 with a history of IBS, hypertension, dyslipidemia, endometrial CA status post hysterectomy, rheumatoid arthritis, reflux, osteoarthritis, generalized anxiety disorder, neuropathy, irritable bowel syndrome, diverticulosis, carpal tunnel surgery, brought in by ambulance after EMS was called by the patient's friend when the patient did not answer her phone. Glucose was 155, EKG was sinus rhythm, blood pressure was 133 mmHg systolic. She complained of joint pain of the left shoulder, right elbow with bruising. Hospitalist was called to admit the patient when she was found to have a right lower lobe pneumonia, UTI and mild rhabdomyolysis. IMPRESSION: 1. Sepsis secondary to UTI, right lower lobe pneumonia, rule out aspiration, currently afebrile with normal white count of 9.3 with an admission white count of 27. Urine culture grew out E. coli resistant to ampicillin, Sulbactam and Levaquin. Chest x-ray showed a right lower lobe pneumonia. Patient is currently on Doxycycline and Cefdinir. 2. Unwitnessed fall. Patient currently has PT/OT ordered, not ready for discharge home. 3. E. coli UTI, garay sensitive, Cefdinir day #5. 4. Right sided community acquired pneumonia, status post Ceftriaxone and Doxycycline, currently on Cefdinir and Doxycycline. 5. Heart failure with preserved ejection fraction. Diuretics were initially held due to mild rhabdomyolysis and lactic acidosis. 6. GERD, on famotidine. 7. Restless legs, on Pramipexole. DISPOSITION: Awaiting PT/OT clearance. MTDD
[2021-03-07] MEDS: POTASSIUM CHLORIDE 10MEQ SR TABLET PO SCH ×2 (11:48→21:42)
[2021-03-07] MEDS: TORSEMIDE 20 MG TAB PO SCH ×2 (11:49→17:00)
[2021-03-07] MEDS: SPIRONOLACTONE 25 MG TAB PO SCH ×2 (11:49→17:00)
[2021-03-07] MEDS: FERROUS GLUCONATE 324 MG TAB PO SCH (11:53)
[2021-03-07] MEDS: PRAMIPEXOLE 1 MG TAB PO SCH (11:54)
[2021-03-07] MEDS: predniSONE 20 MG TAB PO SCH (11:54)
[2021-03-07] MEDS: SERTRALINE HCL 50 MG TAB PO SCH (11:54)
[2021-03-07 13:56] VITALS: BP 138/86
[2021-03-07 17:24] VITALS: BP 102/48
[2021-03-07] MEDS: LEVALBUTEROL 1.25 MG/0.5 ML CONCENTRATE NEB INH PRN (19:57)
[2021-03-07] MEDS: LIDOCAINE 5% (LIDODERM) PATCH TD SCH (21:00)
[2021-03-07] MEDS: RAMELTEON 8 MG TAB (ROZEREM) PO PRN (21:41)
[2021-03-07] MEDS: oxyCODONE 5MG TAB PO PRN (21:43)
[2021-03-07 22:00] VITALS: BP 104/45
[2021-03-08 05:51] VITALS: BP 117/57
[2021-03-08 07:52] LABS: BASO % 0.4 % (0.0-1.0); EOS % 0.5 % (0.0-3.0); HEMATOCRIT 32.7 % (36.0-47.0); HEMOGLOBIN 9.9 g/dl (12.0-15.5); LYMPH # 1.5 10^3/uL (1.5-5.0); LYMPH % 17.4 % (24.0-44.0); MEAN CORPUSCULAR HGB CONC 30.3 g/dl (32.0-36.5); MEAN CORPUSCULAR VOLUME 92.6 fl (80.0-96.0); MONO # 0.6 10^3/uL (0.0-0.8); MONO % 6.6 % (2.0-8.0); NEUTROPHILS # 6.3 10^3/uL (1.5-8.5); NEUTROPHILS % 74.6 % (36.0-66.0); PLATELET COUNT, AUTOMATED 412 10^3/uL (150-450); RED BLOOD COUNT 3.53 10^6/uL (4.00-5.40); WHITE BLOOD COUNT 8.5 10^3/uL (4.0-10.0)
[2021-03-08] MEDS: LEVALBUTEROL 1.25 MG/0.5 ML CONCENTRATE NEB INH SCH ×5 (08:00→23:55)
[2021-03-08] MEDS ORDERED: FUROSEMIDE 40MG/4ML VIAL (J1940) IV ONE (08:20)
[2021-03-08] MEDS ORDERED: LEVALBUTEROL 1.25 MG/0.5 ML CONCENTRATE NEB INH PRN (08:20)
[2021-03-08 08:23] LABS: BLOOD UREA NITROGEN 16 MG/DL (7-18); C REACTIVE PROTEIN QUANTITATIV 3.22 MG/DL (0.00-0.30); CALCIUM LEVEL 8.6 MG/DL (8.8-10.2); CARBON DIOXIDE LEVEL 33 MEQ/L (21-32); CHLORIDE LEVEL 109 MEQ/L (98-107); CREATININE FOR GFR 0.59 MG/DL (0.55-1.30); GLOMERULAR FILTRATION RATE > 60.0 (>32); GLUCOSE, FASTING 114 MG/DL (70-100); POTASSIUM SERUM 4.4 MEQ/L (3.5-5.1); SODIUM LEVEL 146 MEQ/L (136-145)
[2021-03-08] MEDS: LEVALBUTEROL 1.25 MG/0.5 ML CONCENTRATE NEB INH PRN ×2 (08:27→20:43)
[2021-03-08 08:38] LABS: ERYTHROCYTE SEDIMENTATION RATE 67 mm/hr (0-30)
--- NOTE | 2021-03-08 08:48 | IPNPDOC ---
Date Seen The patient was seen on 03/08/21. Progress Note SUBJECTIVE: c/o wheezing sob resumed on torsemide and spironolactone yesterday. no cp, diaphoresis, epigastric pain. cough nonproductive no fever OBJECTIVE: VITAL SIGNS: see below GENERAL: Patient is slightly hard of hearing. Awake, alert and oriented and answering questions appropriately. HEENT: Face is symmetric. Tongue is midline. Moist mucous membranes. LUNGS: Diminished bl wheezing HEART: S1 and S2, sinus rhythm. ABDOMEN: Soft, nontender and nondistended. Obese abdomen. EXTREMITIES: No cyanosis, clubbing or pitting edema. LABORATORY DATA/MICROBIOLOGY: Please see the chart. ASSESSMENT AND PLAN: This is an 85-year-old female admitted on 03/03/21 with a history of IBS, hypertension, dyslipidemia, endometrial CA status post hysterectomy, rheumatoid arthritis, reflux, osteoarthritis, generalized anxiety disorder, neuropathy, irritable bowel syndrome, diverticulosis, carpal tunnel surgery, brought in by ambulance after EMS was called by the patient's friend when the patient did not answer her phone. Glucose was 155, EKG was sinus rhythm, blood pressure was 133 mmHg systolic. She complained of joint pain of the left shoulder, right elbow with bruising. Hospitalist was called to admit the patient when she was found to have a right lower lobe pneumonia, UTI and mild rhabdomyolysis. IMPRESSION: 1. Sepsis secondary to UTI, right lower lobe pneumonia, rule out aspiration, currently afebrile with normal white count of 9.3 with an admission white count of 27. Urine culture grew out E. coli resistant to ampicillin, Sulbactam and Levaquin. Chest x-ray showed a right lower lobe pneumonia. Patient is currently on Doxycycline and Cefdinir. 2. Unwitnessed fall. Patient currently has PT/OT ordered, not ready for discharge home. 3. E. coli UTI, garay sensitive, Cefdinir day #5. 4. Right sided community acquired pneumonia, status post Ceftriaxone and Doxycycline, currently on Cefdinir and Doxycycline. 5. acute decompensated congestive eart failure with preserved ejection fraction. D diastolic dysfunction, diuretics were initially held due to mild rhabdomyolysis and lactic acidosis. i/o weigh daily 2l fluid restriction lasix 40mg iv. nebs. 6. GERD, on famotidine. 7. Restless legs, on Pramipexole. VS, I&O, 24H, Fishbone Vital Signs/I&O Vital Signs Date Time Temp Pulse Resp B/P (MAP) Pulse Ox O2 Delivery O2 Flow Rate FiO2 03/08/21 05:51 98.0 67 16 117/57 (77) 95 Room Air 03/07/21 22:13 1.0 I&O- Last 24 Hours up to 6 AM 03/08/21 06:00 Intake Total 800 ml Output Total 0 ml Balance 800 ml Laboratory Data 24H LABS Laboratory Tests 2 03/08/21 06:40: Immature Granulocyte % (Auto) 0.5, Neutrophils (%) (Auto) 74.6H, Lymphocytes (%) (Auto) 17.4L, Monocytes (%) (Auto) 6.6, Eosinophils (%) (Auto) 0.5, Basophils (%) (Auto) 0.4, Neutrophils # (Auto) 6.3, Lymphocytes # (Auto) 1.5, Monocytes # (Auto) 0.6, Eosinophils # (Auto) 0.0, Basophils # (Auto) 0.0, Nucleated Red Blood Cells % (auto) 0.0, Erythrocyte Sedimentation Rate 67H, Anion Gap 4L, Glomerular Filtration Rate > 60.0, Calcium Level 8.6L, C-Reactive Protein, Quantitative 3.22H CBC/BMP Laboratory Tests 03/08/21 06:40 Microbiology Microbiology 03/04/21 Gram Stain - Final, Complete 03/04/21 Sputum Culture - Final, Complete 03/03/21 Urine Culture - Final, Complete Escherichia Coli 03/03/21 Blood Culture - Preliminary, Resulted No Growth after 72 hours. All specime... 03/03/21 Blood Culture - Preliminary, Resulted No Growth after 72 hours. All specime... JUDITH ADHIKARI MD Mar 08, 2021 08:48
[2021-03-08] MEDS: FOLIC ACID 1 MG TAB PO SCH (09:00)
[2021-03-08] MEDS ORDERED: guaiFENesin ER 600 MG TAB PO SCH (09:00)
[2021-03-08] MEDS: **NOTE PATIENT COMMENT** MISC XX SCH (09:00)
[2021-03-08] MEDS: TORSEMIDE 20 MG TAB PO SCH ×2 (09:00→17:22)
[2021-03-08] MEDS: SPIRONOLACTONE 25 MG TAB PO SCH ×2 (09:00→17:22)
[2021-03-08] MEDS: CEFDINIR 300 MG CAP (OMNICEF) PO SCH ×2 (09:00→20:38)
[2021-03-08] MEDS: PRAMIPEXOLE 1 MG TAB PO SCH (09:01)
[2021-03-08] MEDS: FAMOTIDINE 20 MG TAB PO SCH (09:01)
[2021-03-08] MEDS: LORATADINE 10 MG TAB PO SCH (09:01)
[2021-03-08] MEDS: DOXYCYCLINE HYCLATE 100MG TABLET PO SCH ×2 (09:01→20:41)
[2021-03-08] MEDS: guaiFENesin ER 600 MG TAB PO SCH ×2 (09:01→20:39)
[2021-03-08] MEDS: LACTOBACILLUS ACIDOPHILUS CAP (BACID) PO SCH ×4 (09:01→20:38)
[2021-03-08] MEDS: predniSONE 20 MG TAB PO SCH (09:02)
[2021-03-08] MEDS: POTASSIUM CHLORIDE 10MEQ SR TABLET PO SCH ×2 (09:02→21:00)
[2021-03-08] MEDS: SERTRALINE HCL 50 MG TAB PO SCH (09:02)
[2021-03-08] MEDS: ENOXAPARIN 40MG/0.4ML SYRINGE (J1650 PER 10MG) SC SCH (09:03)
--- NOTE | 2021-03-08 09:03 | REP ---
INDICATION: sob COMPARISON: None. TECHNIQUE: Portable AP view of the chest FINDINGS: Examination is limited by underpenetration and poor inspiratory effort which accentuate the pulmonary vasculature and interstitium. Chronic changes are suggested and similar to prior exam. The mediastinum and cardiac silhouette are within normal limits for portable technique. There is no discrete focal consolidation, effusion, or pneumothorax. Skeletal structures demonstrate stable degenerative changes. IMPRESSION: Chronic appearing changes. No focal consolidation or effusion identified. <Electronically signed by Collins Chapman > 03/08/21 [id number]
[2021-03-08] MEDS: MIDODRINE 5 MG TAB PO SCH ×3 (09:06→17:22)
[2021-03-08 09:15] VITALS: BP 105/45
[2021-03-08] MEDS: oxyCODONE 5MG TAB PO PRN ×2 (09:16→20:41)
[2021-03-08 09:46] LABS: NT-PRO BNP 3098 PG/ML (<450)
[2021-03-08] MEDS ORDERED: metOLazone 2.5 MG TAB PO ONE (10:00)
[2021-03-08] MEDS ORDERED: DOXY100T PO (11:49)
[2021-03-08] MEDS ORDERED: CEFD300CAP PO (11:49)
[2021-03-08] MEDS ORDERED: BACITAB PO (11:49)
[2021-03-08 13:06] LABS: BLOOD UREA NITROGEN 16 MG/DL (7-18); CARBON DIOXIDE LEVEL 32 MEQ/L (21-32); CHLORIDE LEVEL 110 MEQ/L (98-107); CREATININE FOR GFR 0.67 MG/DL (0.55-1.30); GLOMERULAR FILTRATION RATE > 60.0 (>32); GLUCOSE, FASTING 125 MG/DL (70-100); MAGNESIUM LEVEL 2.1 MG/DL (1.8-2.4); POTASSIUM SERUM 5.3 MEQ/L (3.5-5.1); SODIUM LEVEL 145 MEQ/L (136-145)
[2021-03-08] MEDS: FERROUS GLUCONATE 324 MG TAB PO SCH (13:18)
[2021-03-08 17:23] VITALS: BP 142/72
[2021-03-08] MEDS: RAMELTEON 8 MG TAB (ROZEREM) PO PRN (20:38)
[2021-03-08] MEDS: LIDOCAINE 5% (LIDODERM) PATCH TD SCH (20:41)
[2021-03-09] MEDS: LEVALBUTEROL 1.25 MG/0.5 ML CONCENTRATE NEB INH SCH ×6 (04:06→23:30)
[2021-03-09 06:00] VITALS: BP 127/60
[2021-03-09] MEDS ORDERED: TORSEMIDE 20 MG TAB PO ONE (08:50)
[2021-03-09] MEDS: TORSEMIDE 20 MG TAB PO SCH ×2 (09:00→17:27)
[2021-03-09 09:46] LABS: BASO % 0.3 % (0.0-1.0); EOS # 0.1 10^3/uL (0.0-0.5); EOS % 1.1 % (0.0-3.0); HEMATOCRIT 34.7 % (36.0-47.0); HEMOGLOBIN 10.5 g/dl (12.0-15.5); LYMPH # 2.7 10^3/uL (1.5-5.0); LYMPH % 24.4 % (24.0-44.0); MEAN CORPUSCULAR HEMOGLOBIN 28.2 pg (27.0-33.0); MEAN CORPUSCULAR HGB CONC 30.3 g/dl (32.0-36.5); MONO # 0.7 10^3/uL (0.0-0.8); MONO % 6.6 % (2.0-8.0); NEUTROPHILS # 7.4 10^3/uL (1.5-8.5); PLATELET COUNT, AUTOMATED 426 10^3/uL (150-450); RED BLOOD COUNT 3.73 10^6/uL (4.00-5.40); WHITE BLOOD COUNT 11.1 10^3/uL (4.0-10.0)
[2021-03-09] MEDS: MIDODRINE 5 MG TAB PO SCH ×3 (09:51→17:27)
[2021-03-09] MEDS: predniSONE 20 MG TAB PO SCH (09:51)
[2021-03-09] MEDS: DOXYCYCLINE HYCLATE 100MG TABLET PO SCH ×2 (09:51→22:02)
[2021-03-09] MEDS: SERTRALINE HCL 50 MG TAB PO SCH (09:51)
[2021-03-09] MEDS: guaiFENesin ER 600 MG TAB PO SCH ×2 (09:51→22:02)
[2021-03-09] MEDS: LACTOBACILLUS ACIDOPHILUS CAP (BACID) PO SCH ×4 (09:51→22:02)
[2021-03-09] MEDS: CEFDINIR 300 MG CAP (OMNICEF) PO SCH ×2 (09:51→22:04)
[2021-03-09] MEDS: PRAMIPEXOLE 1 MG TAB PO SCH (09:52)
[2021-03-09] MEDS: FOLIC ACID 1 MG TAB PO SCH (09:52)
[2021-03-09] MEDS: LORATADINE 10 MG TAB PO SCH (09:52)
[2021-03-09] MEDS: **NOTE PATIENT COMMENT** MISC XX SCH (09:53)
[2021-03-09] MEDS: ENOXAPARIN 40MG/0.4ML SYRINGE (J1650 PER 10MG) SC SCH (09:53)
[2021-03-09 09:54] VITALS: BP 109/52
[2021-03-09] MEDS ORDERED: SOD POLYSTYRENE SULFONATE SUSP 15 GM/60 ML UD PO ONE (10:00)
[2021-03-09] MEDS: IPRATROPIUM 0.5MG/ALBUTEROL 2.5MG INH SOL UD 3ML (DUONEB) NEB PRN (10:02)
[2021-03-09] MEDS: oxyCODONE 5MG TAB PO PRN (10:02)
[2021-03-09 10:19] LABS: BLOOD UREA NITROGEN 18 MG/DL (7-18); CALCIUM LEVEL 8.8 MG/DL (8.8-10.2); CARBON DIOXIDE LEVEL 35 MEQ/L (21-32); CHLORIDE LEVEL 104 MEQ/L (98-107); CREATININE FOR GFR 0.82 MG/DL (0.55-1.30); GLOMERULAR FILTRATION RATE > 60.0 (>32); GLUCOSE, FASTING 111 MG/DL (70-100); NT-PRO BNP 3540 PG/ML (<450); POTASSIUM SERUM 3.9 MEQ/L (3.5-5.1); SODIUM LEVEL 146 MEQ/L (136-145)
--- NOTE | 2021-03-09 11:09 | IPNPDOC ---
Date Seen The patient was seen on 03/09/21. Progress Note SUBJECTIVE: remains confused and week, failed hse by physical therapy yesterday. sob slightly better. unable to measure urine output since incontinent and can't stand up. no sob, cp, lightheadedness. OBJECTIVE: VITAL SIGNS: see below GENERAL: confused. no distresss. breathing easier today. no use of resp acc mm. able to complete sentences HEENT: Face is symmetric. Tongue is midline. Moist mucous membranes. LUNGS: Diminished bl wheezing HEART: S1 and S2, sinus rhythm. ABDOMEN: Soft, nontender and nondistended. Obese abdomen. EXTREMITIES: No cyanosis, clubbing or pitting edema. LABORATORY DATA/MICROBIOLOGY: Please see the chart. ASSESSMENT AND PLAN: This is an 85-year-old female admitted on 03/03/21 with a history of IBS, hypertension, dyslipidemia, endometrial CA status post hysterectomy, rheumatoid arthritis, reflux, osteoarthritis, generalized anxiety disorder, neuropathy, irritable bowel syndrome, diverticulosis, carpal tunnel surgery, brought in by ambulance after EMS was called by the patient's friend when the patient did not answer her phone. Glucose was 155, EKG was sinus rhythm, blood pressure was 133 mmHg systolic. She complained of joint pain of the left shoulder, right elbow with bruising. Hospitalist was called to admit the patient when she was found to have a right lower lobe pneumonia, UTI and mild rhabdomyolysis. IMPRESSION: UTI RLL PNA Acute metabolic encephalopathy / acute delirkum due to UTI/RLL PNA acute decompensated diastolic CHF exacerbation, resolved Unwitnessed FAll at home GERD Restless legs syndrome Debility unable to perform ADLs Gait abnormality Obese BMI 31 Hypernatremia Hypokalemia PLAN: monitor volume status, electrolytes, and adjust meds as needed. medically stable, and improved respiratory status with home dose of diuretics back on torsemide. held spironolactone due to hyperkalemia will need placement complete 7days abx encourage oob tid for meals assisted ambulation fall precautions lives alone and will need placement-PFS aware. VS, I&O, 24H, Fishbone Vital Signs/I&O Vital Signs Date Time Temp Pulse Resp B/P (MAP) Pulse Ox O2 Delivery O2 Flow Rate FiO2 03/09/21 10:32 18 Nasal Cannula 1.0 03/09/21 09:54 83 109/52 (71) 03/09/21 06:00 98.0 91 I&O- Last 24 Hours up to 6 AM 03/09/21 06:00 Intake Total 1310 ml Output Total 0 ml Balance 1310 ml Laboratory Data 24H LABS Laboratory Tests 2 03/08/21 12:16: Anion Gap 3L, Glomerular Filtration Rate > 60.0, Calcium Level 9.0, Magnesium Level 2.1 03/09/21 09:21: Anion Gap 7L, Glomerular Filtration Rate > 60.0, Calcium Level 8.8, Magnesium Level 2.0, Immature Granulocyte % (Auto) 0.6, Neutrophils (%) (Auto) 67.0H, Lymphocytes (%) (Auto) 24.4, Monocytes (%) (Auto) 6.6, Eosinophils (%) (Auto) 1.1, Basophils (%) (Auto) 0.3, Neutrophils # (Auto) 7.4, Lymphocytes # (Auto) 2.7, Monocytes # (Auto) 0.7, Eosinophils # (Auto) 0.1, Basophils # (Auto) 0.0, Nucleated Red Blood Cells % (auto) 0.0, XZ-Hlt-T-Type Natriuretic Peptide 3540H CBC/BMP Laboratory Tests 03/08/21 12:16 03/09/21 09:21 Microbiology Microbiology 03/04/21 Gram Stain - Final, Complete 03/04/21 Sputum Culture - Final, Complete 03/03/21 Urine Culture - Final, Complete Escherichia Coli 03/03/21 Blood Culture - Final, Complete NO GROWTH AFTER 5 DAYS 03/03/21 Blood Culture - Final, Complete NO GROWTH AFTER 5 DAYS JUDITH ADHIKARI MD Mar 09, 2021 11:09
[2021-03-09] MEDS ORDERED: ALPRAZolam 0.25 MG TAB PO ONE (11:35)
[2021-03-09] MEDS: FERROUS GLUCONATE 324 MG TAB PO SCH (12:17)
[2021-03-09 17:28] VITALS: BP 116/57
[2021-03-09] MEDS: LIDOCAINE 5% (LIDODERM) PATCH TD SCH (22:03)
[2021-03-09] MEDS: RAMELTEON 8 MG TAB (ROZEREM) PO PRN (22:03)
[2021-03-09] MEDS: ACETAMINOPHEN TAB 650MG DOSE (2X325MG) PO PRN (22:04)
[2021-03-10] MEDS: oxyCODONE 5MG TAB PO PRN ×3 (03:19→15:08)
[2021-03-10] MEDS: LEVALBUTEROL 1.25 MG/0.5 ML CONCENTRATE NEB INH SCH ×6 (04:12→23:24)
[2021-03-10 06:00] VITALS: BP 123/57
[2021-03-10] MEDS: FAMOTIDINE 20 MG TAB PO SCH (09:34)
[2021-03-10] MEDS: predniSONE 20 MG TAB PO SCH (09:34)
[2021-03-10] MEDS: SERTRALINE HCL 50 MG TAB PO SCH (09:34)
[2021-03-10] MEDS: LORATADINE 10 MG TAB PO SCH (09:34)
[2021-03-10] MEDS: guaiFENesin ER 600 MG TAB PO SCH ×2 (09:34→22:38)
[2021-03-10] MEDS: MIDODRINE 5 MG TAB PO SCH ×3 (09:34→17:33)
[2021-03-10] MEDS: DOXYCYCLINE HYCLATE 100MG TABLET PO SCH ×2 (09:34→22:38)
[2021-03-10] MEDS: LACTOBACILLUS ACIDOPHILUS CAP (BACID) PO SCH ×4 (09:35→22:38)
[2021-03-10] MEDS: TORSEMIDE 20 MG TAB PO SCH ×2 (09:35→17:33)
[2021-03-10] MEDS: FOLIC ACID 1 MG TAB PO SCH (09:35)
[2021-03-10] MEDS: CEFDINIR 300 MG CAP (OMNICEF) PO SCH ×2 (09:36→22:38)
[2021-03-10] MEDS: PRAMIPEXOLE 1 MG TAB PO SCH (09:36)
[2021-03-10] MEDS: ENOXAPARIN 40MG/0.4ML SYRINGE (J1650 PER 10MG) SC SCH (09:36)
[2021-03-10 09:37] LABS: BASO % 0.2 % (0.0-1.0); EOS # 0.1 10^3/uL (0.0-0.5); EOS % 0.7 % (0.0-3.0); HEMATOCRIT 37.3 % (36.0-47.0); HEMOGLOBIN 11.1 g/dl (12.0-15.5); LYMPH # 2.8 10^3/uL (1.5-5.0); LYMPH % 22.6 % (24.0-44.0); MEAN CORPUSCULAR HEMOGLOBIN 27.8 pg (27.0-33.0); MEAN CORPUSCULAR HGB CONC 29.8 g/dl (32.0-36.5); MEAN CORPUSCULAR VOLUME 93.5 fl (80.0-96.0); MONO # 0.7 10^3/uL (0.0-0.8); MONO % 5.7 % (2.0-8.0); NEUTROPHILS # 8.6 10^3/uL (1.5-8.5); NEUTROPHILS % 70.3 % (36.0-66.0); PLATELET COUNT, AUTOMATED 477 10^3/uL (150-450); RED BLOOD COUNT 3.99 10^6/uL (4.00-5.40); WHITE BLOOD COUNT 12.2 10^3/uL (4.0-10.0)
[2021-03-10] MEDS: **NOTE PATIENT COMMENT** MISC XX SCH (09:49)
[2021-03-10 10:11] LABS: BLOOD UREA NITROGEN 24 MG/DL (7-18); CALCIUM LEVEL 8.6 MG/DL (8.8-10.2); CARBON DIOXIDE LEVEL 36 MEQ/L (21-32); CHLORIDE LEVEL 100 MEQ/L (98-107); CREATININE FOR GFR 0.93 MG/DL (0.55-1.30); GLOMERULAR FILTRATION RATE > 60.0 (>32); GLUCOSE, FASTING 140 MG/DL (70-100); POTASSIUM SERUM 3.1 MEQ/L (3.5-5.1); SODIUM LEVEL 143 MEQ/L (136-145)
[2021-03-10 10:31] LABS: ERYTHROCYTE SEDIMENTATION RATE 52 mm/hr (0-30)
[2021-03-10] MEDS: FERROUS GLUCONATE 324 MG TAB PO SCH (12:37)
[2021-03-10 14:00] VITALS: BP 146/69
[2021-03-10] MEDS: ALPRAZolam 0.25 MG TAB PO PRN (15:07)
[2021-03-10] MEDS: SPIRONOLACTONE 25 MG TAB PO SCH (17:00)
[2021-03-10] MEDS ORDERED: POTASSIUM CHLORIDE 10MEQ SR TABLET PO ONE (18:00)
[2021-03-10 18:41] VITALS: BP 100/50
[2021-03-10] MEDS: LIDOCAINE 5% (LIDODERM) PATCH TD SCH (21:00)
[2021-03-10] MEDS ORDERED: POTASSIUM CHLORIDE 10MEQ SR TABLET PO SCH (21:00)
[2021-03-11] MEDS: LEVALBUTEROL 1.25 MG/0.5 ML CONCENTRATE NEB INH SCH ×6 (03:44→23:27)
[2021-03-11 06:00] VITALS: BP 129/77
--- NOTE | 2021-03-11 07:49 | REPVR ---
PROCEDURE INFORMATION: Exam: XR Chest Exam date and time: 03/11/2021 7:28 AM Age: 85 years old Clinical indication: Other: Cough SOB incr wbc TECHNIQUE: Imaging protocol: XR of the chest. Views: 1 view. COMPARISON: CR PORTABLE CHEST X-RAY 03/08/2021 8:32 AM FINDINGS: Lungs: There is markedly low lung volume with central bronchovascular crowding. There is mild prominent interstitial markings. Pleural spaces: Unremarkable. No pleural effusion. No pneumothorax. Heart/Mediastinum: Unremarkable. No cardiomegaly. Bones/joints: There is bilateral shoulder joints DJD. IMPRESSION: 1. No focal consolidation. 2. Low lung volume with bronchovascular crowding basilar atelectatic changes and and mild prominent interstitium due to hypoventilatory changes grossly unchanged since the prior exam. Underlying infiltrates particularly in the perihilar regions cannot be excluded. Electronically signed by: Noel Vasquez On 03/11/2021 07:48:56 AM
[2021-03-11 08:12] LABS: BASO % 0.2 % (0.0-1.0); EOS # 0.1 10^3/uL (0.0-0.5); EOS % 0.6 % (0.0-3.0); HEMATOCRIT 39.6 % (36.0-47.0); LYMPH # 2.4 10^3/uL (1.5-5.0); LYMPH % 22.3 % (24.0-44.0); MEAN CORPUSCULAR HEMOGLOBIN 28.4 pg (27.0-33.0); MEAN CORPUSCULAR HGB CONC 30.3 g/dl (32.0-36.5); MEAN CORPUSCULAR VOLUME 93.6 fl (80.0-96.0); MONO # 0.7 10^3/uL (0.0-0.8); MONO % 6.9 % (2.0-8.0); NEUTROPHILS # 7.5 10^3/uL (1.5-8.5); NEUTROPHILS % 69.5 % (36.0-66.0); PLATELET COUNT, AUTOMATED 478 10^3/uL (150-450); RED BLOOD COUNT 4.23 10^6/uL (4.00-5.40); WHITE BLOOD COUNT 10.7 10^3/uL (4.0-10.0)
[2021-03-11] MEDS: MIDODRINE 5 MG TAB PO SCH ×3 (08:31→18:20)
[2021-03-11] MEDS: CEFDINIR 300 MG CAP (OMNICEF) PO SCH ×2 (08:31→20:19)
[2021-03-11] MEDS: DOXYCYCLINE HYCLATE 100MG TABLET PO SCH ×2 (08:31→20:20)
[2021-03-11] MEDS: PRAMIPEXOLE 1 MG TAB PO SCH (08:31)
[2021-03-11] MEDS: LORATADINE 10 MG TAB PO SCH (08:31)
[2021-03-11] MEDS: FOLIC ACID 1 MG TAB PO SCH (08:31)
[2021-03-11] MEDS: SERTRALINE HCL 50 MG TAB PO SCH (08:31)
[2021-03-11] MEDS: guaiFENesin ER 600 MG TAB PO SCH ×2 (08:31→20:19)
[2021-03-11] MEDS: **NOTE PATIENT COMMENT** MISC XX SCH (08:32)
[2021-03-11] MEDS: predniSONE 20 MG TAB PO SCH (08:32)
[2021-03-11] MEDS: ENOXAPARIN 40MG/0.4ML SYRINGE (J1650 PER 10MG) SC SCH (08:32)
[2021-03-11] MEDS: LACTOBACILLUS ACIDOPHILUS CAP (BACID) PO SCH ×4 (08:32→20:19)
[2021-03-11 08:49] LABS: BLOOD UREA NITROGEN 25 MG/DL (7-18); C REACTIVE PROTEIN QUANTITATIV 0.93 MG/DL (0.00-0.30); CALCIUM LEVEL 8.7 MG/DL (8.8-10.2); CARBON DIOXIDE LEVEL 38 MEQ/L (21-32); CHLORIDE LEVEL 102 MEQ/L (98-107); CK-MB VALUE MASS < 1.0 NG/ML (<3.6); CPK CREATINE PHOSPHOKINASE 23 U/L (26-192); CREATININE FOR GFR 0.75 MG/DL (0.55-1.30); GLOMERULAR FILTRATION RATE > 60.0 (>32); GLUCOSE, FASTING 69 MG/DL (70-100); MAGNESIUM LEVEL 2.4 MG/DL (1.8-2.4); MB/CK RELATIVE INDEX 4.35 (< OR =4); NT-PRO BNP 1722 PG/ML (<450); POTASSIUM SERUM 4.6 MEQ/L (3.5-5.1); SODIUM LEVEL 145 MEQ/L (136-145)
[2021-03-11 08:50] LABS: ERYTHROCYTE SEDIMENTATION RATE 48 mm/hr (0-30)
[2021-03-11 08:58] VITALS: BP 118/58
[2021-03-11] MEDS: SPIRONOLACTONE 25 MG TAB PO SCH ×2 (09:05→18:20)
[2021-03-11] MEDS: TORSEMIDE 20 MG TAB PO SCH ×2 (09:05→18:20)
[2021-03-11] MEDS: FERROUS GLUCONATE 324 MG TAB PO SCH (11:31)
[2021-03-11 11:32] VITALS: BP 112/48
[2021-03-11] MEDS: RAMELTEON 8 MG TAB (ROZEREM) PO PRN (20:19)
[2021-03-11] MEDS: ACETAMINOPHEN TAB 650MG DOSE (2X325MG) PO PRN (20:20)
[2021-03-11] MEDS: LIDOCAINE 5% (LIDODERM) PATCH TD SCH (20:20)
[2021-03-12] MEDS: ALPRAZolam 0.25 MG TAB PO PRN (00:29)
[2021-03-12] MEDS: LEVALBUTEROL 1.25 MG/0.5 ML CONCENTRATE NEB INH SCH ×5 (04:00→18:33)
[2021-03-12 06:00] VITALS: BP 122/68
[2021-03-12] MEDS: ENOXAPARIN 40MG/0.4ML SYRINGE (J1650 PER 10MG) SC SCH ×2 (09:00→09:39)
[2021-03-12] MEDS: LACTOBACILLUS ACIDOPHILUS CAP (BACID) PO SCH ×4 (09:40→21:48)
[2021-03-12] MEDS: CEFDINIR 300 MG CAP (OMNICEF) PO SCH ×2 (09:40→21:48)
[2021-03-12] MEDS: FOLIC ACID 1 MG TAB PO SCH (09:40)
[2021-03-12] MEDS: DOXYCYCLINE HYCLATE 100MG TABLET PO SCH ×2 (09:40→21:48)
[2021-03-12] MEDS: PRAMIPEXOLE 1 MG TAB PO SCH (09:40)
[2021-03-12] MEDS: guaiFENesin ER 600 MG TAB PO SCH ×2 (09:41→21:48)
[2021-03-12] MEDS: MIDODRINE 5 MG TAB PO SCH ×3 (09:41→17:22)
[2021-03-12] MEDS: LORATADINE 10 MG TAB PO SCH (09:41)
[2021-03-12] MEDS: TORSEMIDE 20 MG TAB PO SCH ×2 (09:41→17:22)
[2021-03-12] MEDS: SPIRONOLACTONE 25 MG TAB PO SCH ×2 (09:41→17:22)
[2021-03-12] MEDS: FAMOTIDINE 20 MG TAB PO SCH (09:41)
[2021-03-12] MEDS: SERTRALINE HCL 50 MG TAB PO SCH (09:41)
[2021-03-12] MEDS: **NOTE PATIENT COMMENT** MISC XX SCH (09:42)
[2021-03-12] MEDS: predniSONE 20 MG TAB PO SCH (09:42)
[2021-03-12] MEDS: FERROUS GLUCONATE 324 MG TAB PO SCH (13:58)
[2021-03-12] MEDS: LIDOCAINE 5% (LIDODERM) PATCH TD SCH (21:48)
[2021-03-12 22:00] VITALS: BP 124/64
[2021-03-13 06:00] VITALS: BP 120/52
[2021-03-13] MEDS: LEVALBUTEROL 1.25 MG/0.5 ML CONCENTRATE NEB INH SCH ×6 (08:00→23:14)
[2021-03-13] MEDS: DOXYCYCLINE HYCLATE 100MG TABLET PO SCH (08:13)
[2021-03-13] MEDS: PRAMIPEXOLE 1 MG TAB PO SCH (08:13)
[2021-03-13] MEDS: guaiFENesin ER 600 MG TAB PO SCH ×2 (08:14→20:15)
[2021-03-13] MEDS: predniSONE 20 MG TAB PO SCH (08:14)
[2021-03-13] MEDS: LORATADINE 10 MG TAB PO SCH (08:14)
[2021-03-13] MEDS: TORSEMIDE 20 MG TAB PO SCH ×3 (08:14→17:14)
[2021-03-13] MEDS: CEFDINIR 300 MG CAP (OMNICEF) PO SCH (08:14)
[2021-03-13] MEDS: LACTOBACILLUS ACIDOPHILUS CAP (BACID) PO SCH ×4 (08:14→20:15)
[2021-03-13] MEDS: SERTRALINE HCL 50 MG TAB PO SCH (08:14)
[2021-03-13] MEDS: SPIRONOLACTONE 25 MG TAB PO SCH ×2 (08:14→16:01)
[2021-03-13] MEDS: FOLIC ACID 1 MG TAB PO SCH (08:14)
[2021-03-13] MEDS: MIDODRINE 5 MG TAB PO SCH ×3 (08:14→16:00)
[2021-03-13] MEDS: ENOXAPARIN 40MG/0.4ML SYRINGE (J1650 PER 10MG) SC SCH (08:15)
[2021-03-13] MEDS: **NOTE PATIENT COMMENT** MISC XX SCH (08:15)
[2021-03-13] MEDS: FERROUS GLUCONATE 324 MG TAB PO SCH (11:40)
[2021-03-13] MEDS: LIDOCAINE 5% (LIDODERM) PATCH TD SCH (20:15)
[2021-03-14] MEDS: LEVALBUTEROL 1.25 MG/0.5 ML CONCENTRATE NEB INH SCH ×5 (04:00→19:44)
[2021-03-14 06:00] VITALS: BP 134/61
[2021-03-14] MEDS: MIDODRINE 5 MG TAB PO SCH ×3 (08:03→16:58)
[2021-03-14] MEDS: FAMOTIDINE 20 MG TAB PO SCH (08:03)
[2021-03-14] MEDS: LACTOBACILLUS ACIDOPHILUS CAP (BACID) PO SCH ×4 (08:03→20:45)
[2021-03-14] MEDS: SPIRONOLACTONE 25 MG TAB PO SCH ×2 (08:03→16:59)
[2021-03-14] MEDS: guaiFENesin ER 600 MG TAB PO SCH ×2 (08:03→20:46)
[2021-03-14] MEDS: TORSEMIDE 20 MG TAB PO SCH ×2 (08:04→16:59)
[2021-03-14] MEDS: predniSONE 20 MG TAB PO SCH (08:04)
[2021-03-14] MEDS: FOLIC ACID 1 MG TAB PO SCH (08:04)
[2021-03-14] MEDS: LORATADINE 10 MG TAB PO SCH (08:04)
[2021-03-14] MEDS: SERTRALINE HCL 50 MG TAB PO SCH (08:04)
[2021-03-14] MEDS: ENOXAPARIN 40MG/0.4ML SYRINGE (J1650 PER 10MG) SC SCH (08:06)
[2021-03-14] MEDS: **NOTE PATIENT COMMENT** MISC XX SCH (08:08)
[2021-03-14] MEDS: PRAMIPEXOLE 1 MG TAB PO SCH (08:08)
[2021-03-14] MEDS: oxyCODONE 5MG TAB PO PRN (11:38)
[2021-03-14] MEDS: FERROUS GLUCONATE 324 MG TAB PO SCH (11:38)
[2021-03-14] MEDS: LIDOCAINE 5% (LIDODERM) PATCH TD SCH (20:46)
[2021-03-15] MEDS: LEVALBUTEROL 1.25 MG/0.5 ML CONCENTRATE NEB INH SCH ×7 (04:00→23:51)
[2021-03-15 06:00] VITALS: BP 125/49
[2021-03-15 06:35] LABS: BASO % 0.1 % (0.0-1.0); EOS % 0.1 % (0.0-3.0); HEMATOCRIT 39.1 % (36.0-47.0); HEMOGLOBIN 12.1 g/dl (12.0-15.5); LYMPH % 21.6 % (24.0-44.0); MEAN CORPUSCULAR HEMOGLOBIN 28.2 pg (27.0-33.0); MEAN CORPUSCULAR HGB CONC 30.9 g/dl (32.0-36.5); MEAN CORPUSCULAR VOLUME 91.1 fl (80.0-96.0); MONO # 0.8 10^3/uL (0.0-0.8); MONO % 6.1 % (2.0-8.0); NEUTROPHILS # 9.7 10^3/uL (1.5-8.5); NEUTROPHILS % 71.2 % (36.0-66.0); PLATELET COUNT, AUTOMATED 448 10^3/uL (150-450); RED BLOOD COUNT 4.29 10^6/uL (4.00-5.40); WHITE BLOOD COUNT 13.7 10^3/uL (4.0-10.0)
[2021-03-15 07:01] LABS: ALBUMIN 2.3 GM/DL (3.2-5.2); ALT/SGPT 21 U/L (12-78); BILIRUBIN,TOTAL 0.5 MG/DL (0.2-1.0); BLOOD UREA NITROGEN 27 MG/DL (7-18); CALCIUM LEVEL 8.5 MG/DL (8.8-10.2); CARBON DIOXIDE LEVEL 35 MEQ/L (21-32); CHLORIDE LEVEL 100 MEQ/L (98-107); CREATININE FOR GFR 0.83 MG/DL (0.55-1.30); GLOMERULAR FILTRATION RATE > 60.0 (>32); GLUCOSE, FASTING 79 MG/DL (70-100); MAGNESIUM LEVEL 2.9 MG/DL (1.8-2.4); POTASSIUM SERUM 3.6 MEQ/L (3.5-5.1); SODIUM LEVEL 141 MEQ/L (136-145); TOTAL PROTEIN 5.8 GM/DL (6.4-8.2)
[2021-03-15] MEDS: predniSONE 20 MG TAB PO SCH (08:31)
[2021-03-15] MEDS: LACTOBACILLUS ACIDOPHILUS CAP (BACID) PO SCH ×4 (08:32→20:10)
[2021-03-15] MEDS: FOLIC ACID 1 MG TAB PO SCH (08:32)
[2021-03-15] MEDS: PRAMIPEXOLE 1 MG TAB PO SCH (08:32)
[2021-03-15] MEDS: LORATADINE 10 MG TAB PO SCH (08:32)
[2021-03-15] MEDS: MIDODRINE 5 MG TAB PO SCH ×3 (08:32→17:54)
[2021-03-15] MEDS: guaiFENesin ER 600 MG TAB PO SCH ×2 (08:32→20:10)
[2021-03-15] MEDS: SPIRONOLACTONE 25 MG TAB PO SCH ×2 (08:32→17:55)
[2021-03-15] MEDS: TORSEMIDE 20 MG TAB PO SCH ×2 (08:32→17:55)
[2021-03-15] MEDS: SERTRALINE HCL 50 MG TAB PO SCH (08:32)
[2021-03-15] MEDS: ENOXAPARIN 40MG/0.4ML SYRINGE (J1650 PER 10MG) SC SCH (08:32)
[2021-03-15] MEDS: **NOTE PATIENT COMMENT** MISC XX SCH (08:33)
[2021-03-15] MEDS: FERROUS GLUCONATE 324 MG TAB PO SCH (12:52)
[2021-03-15] MEDS: LIDOCAINE 5% (LIDODERM) PATCH TD SCH (20:10)
[2021-03-16] MEDS: LEVALBUTEROL 1.25 MG/0.5 ML CONCENTRATE NEB INH SCH ×6 (04:52→23:30)
[2021-03-16 06:00] VITALS: BP 135/66
[2021-03-16] MEDS: MIDODRINE 5 MG TAB PO SCH ×3 (08:00→16:00)
[2021-03-16] MEDS: SPIRONOLACTONE 25 MG TAB PO SCH ×2 (08:46→16:33)
[2021-03-16] MEDS: TORSEMIDE 20 MG TAB PO SCH ×2 (08:47→16:33)
[2021-03-16] MEDS: predniSONE 20 MG TAB PO SCH (08:47)
[2021-03-16] MEDS: FAMOTIDINE 20 MG TAB PO SCH (08:48)
[2021-03-16] MEDS: LACTOBACILLUS ACIDOPHILUS CAP (BACID) PO SCH ×4 (08:48→20:47)
[2021-03-16] MEDS: PRAMIPEXOLE 1 MG TAB PO SCH (08:48)
[2021-03-16] MEDS: guaiFENesin ER 600 MG TAB PO SCH ×2 (08:48→20:47)
[2021-03-16] MEDS: SERTRALINE HCL 50 MG TAB PO SCH (08:51)
[2021-03-16] MEDS: FOLIC ACID 1 MG TAB PO SCH (08:51)
[2021-03-16] MEDS: LORATADINE 10 MG TAB PO SCH (08:51)
[2021-03-16] MEDS: ENOXAPARIN 40MG/0.4ML SYRINGE (J1650 PER 10MG) SC SCH (08:52)
[2021-03-16] MEDS: **NOTE PATIENT COMMENT** MISC XX SCH (08:52)
[2021-03-16 08:55] VITALS: BP 112/70
[2021-03-16] MEDS: FERROUS GLUCONATE 324 MG TAB PO SCH (12:23)
[2021-03-16 12:27] VITALS: BP 110/62
[2021-03-16] MEDS: ACETAMINOPHEN TAB 650MG DOSE (2X325MG) PO PRN (18:34)
[2021-03-16] MEDS: RAMELTEON 8 MG TAB (ROZEREM) PO PRN (20:47)
[2021-03-16] MEDS: oxyCODONE 5MG TAB PO PRN (20:50)
[2021-03-16] MEDS: LIDOCAINE 5% (LIDODERM) PATCH TD SCH (20:50)
[2021-03-16] MEDS: ALPRAZolam 0.25 MG TAB PO PRN (23:30)
[2021-03-17] MEDS: LEVALBUTEROL 1.25 MG/0.5 ML CONCENTRATE NEB INH SCH ×3 (04:00→11:04)
[2021-03-17 06:00] VITALS: BP 142/51
[2021-03-17] MEDS: ENOXAPARIN 40MG/0.4ML SYRINGE (J1650 PER 10MG) SC SCH (09:47)
[2021-03-17] MEDS: guaiFENesin ER 600 MG TAB PO SCH (09:47)
[2021-03-17] MEDS: PRAMIPEXOLE 1 MG TAB PO SCH (09:48)
[2021-03-17] MEDS: SPIRONOLACTONE 25 MG TAB PO SCH (09:48)
[2021-03-17] MEDS: MIDODRINE 5 MG TAB PO SCH ×2 (09:48→13:23)
[2021-03-17] MEDS: SERTRALINE HCL 50 MG TAB PO SCH (09:48)
[2021-03-17] MEDS: LORATADINE 10 MG TAB PO SCH (09:48)
[2021-03-17] MEDS: LACTOBACILLUS ACIDOPHILUS CAP (BACID) PO SCH ×2 (09:48→13:22)
[2021-03-17] MEDS: predniSONE 20 MG TAB PO SCH (09:48)
[2021-03-17] MEDS: TORSEMIDE 20 MG TAB PO SCH (09:48)
[2021-03-17] MEDS: FOLIC ACID 1 MG TAB PO SCH (09:50)
[2021-03-17] MEDS: **NOTE PATIENT COMMENT** MISC XX SCH (09:50)
[2021-03-17] MEDS: FERROUS GLUCONATE 324 MG TAB PO SCH (13:22)
--- NOTE | 2021-03-17 14:38 | HPESKH ---
General Date: Mar 17, 2021 Date of Service: Mar 17, 2021 History of Present Illness CHIEF COMPLAINT: Generalized weakness and debility HISTORY OF PRESENT ILLNESS: Ms. Tapia presents to the [facility] for short-term rehab. She will be working with physical therapy and Occupational Therapy in the hopes that we can get her back to her usual baseline functioning. CODE STATUS: Verbally we did have a conversation with her upon arrival here today. Apparently it is her wishes to be DNR/DNI, but she is okay with being sent to the hospital, and we may use antibiotics to treat infections as necessary. An official MOLST form will be filled out since she does not have one. PAST MEDICAL HISTORY: Generalized anxiety disorder GERD Severe osteoarthritis of the bilateral hips and knees Hypertension Hypertensive cardiovascular disease Rheumatoid arthritis Chronic back pain Hyperlipidemia Low back pain with neuropathy Irritable bowel syndrome (IBS) Diverticulosis Osteopenia History of adenocarcinoma of the endometrium PAST SURGICAL HISTORY: Cholecystectomy Tonsillectomy and adenoidectomy Cataract surgery Teeth extraction Total left knee replacement 2012 Carpal tunnel surgery 2010 Laparoscopic hysterectomy 2010 Total right hip replacement Total knee replacement SOCIAL HISTORY: It appears that she has been a for many years, and apparently has been caring for herself at home. She does have some evidences of dementia during our conversation, but she does know her birthdate, the current year, and the current president. She is also quite sarcastic which means that sometimes her answers are inappropriate, but I cannot tell whether she is just being sarcastic, or is truly answering inappropriately. FAMILY HISTORY: From review of the medical record it appears that she had a brother with Hodgkin's lymphoma, and another brother from myocardial infarction in his 60s. Both her mother and father in their 90s of natural causes REVIEW OF SYSTEMS: Constitutional: Patient denies fevers, chills, night sweats, recent weight gain/loss. HEENT: Patient denies blurred or double vision, transient visual disturbances, postnasal drip, epistaxis, sore throat, difficulty chewing or swallowing food. Cardiovascular: Patient denies chest discomfort/pain, palpitations, exertional dyspnea, orthopnea, edema of the extremities, claudication. Respiratory: Patient denies dyspnea, wheezing, cough, hemoptysis, sputum production. Gastrointestinal: Patient denies nausea, vomiting, diarrhea, constipation, abdominal pain, melena, hematochezia, hematemesis, jaundice. In short, her review of systems is negative, she just has generalized weakness, and perhaps lack of motivation to get up, get around, and work with PT/OT PHYSICAL EXAMINATION: General: Awake, alert, oriented x3 and as indicated above, although her conversation is clouded with quite a bit of sarcasm. HEENT: Head normocephalic atraumatic, conjunctiva are pink, sclera are nonicteric. She is hard of hearing. She is wearing oxygen via nasal cannula Respiratory: Clear to auscultation bilaterally with no wheezes, rales, or rhonchi. Cardiovascular: Regular rate and rhythm, with no rubs, gallops, or murmur. Abdomen: Soft, nontender, nondistended. Bowel sounds present. Extremities: 2+ pulses in the radial and dorsalis pedis bilaterally. No evidence of clubbing or cyanosis. Home medications as listed from her recent hospitalization (this is what they were upon admission to the hospital) -Gabapentin 400 mg p.o. 3 times daily -Lactobacillus 1 tablet p.o. 3 times daily with meals -Metolazone 2.5 mg p.o. twice a week on Saturday and -Potassium chloride 10 mEq p.o. twice daily -Famotidine 20 mg p.o. daily -Ferrous gluconate 324 mg p.o. daily -Folic acid 1 mg p.o. daily -Loratadine 10 mg p.o. daily -Pramipexole 1 mg p.o. daily -Sertraline 50 mg p.o. daily -Spironolactone 25 mg p.o. twice daily -Torsemide 20 mg p.o. twice daily ASSESSMENT/PLAN: Generalized weakness Mobility issues with recent fall History of both osteoarthritis and rheumatoid arthritis with multiple joint replacements -Patient is admitted to our facility for short-term rehab -Request that physical therapy and Occupational Therapy assess and evaluate the patient, and continue working with her while she is here. -Continue pain control with her current home dose of gabapentin, will also add on as needed Tylenol Congestive heart failure with preserved ejection fraction (grade 1 diastolic dysfunction) -Continue home medications metolazone, torsemide, spironolactone Chronic pain Chronic lower extremity neuropathy History of rheumatoid arthritis -Continue home dose of gabapentin Chronic anemia, likely iron deficiency anemia -Continue supplementation with ferrous gluconate Generalized anxiety disorder -Continue sertraline Apparently she has issues with chronic hypokalemia -Continue spironolactone and potassium supplementation at her usual home dose -We will repeat labs on Saturday Chronic seasonal allergies -Continue home dose of loratadine IBS GERD -Continue home dose of famotidine and lactobacillus supplementation VS Vital Signs Date Time Temp Pulse Resp B/P (MAP) Pulse Ox O2 Delivery O2 Flow Rate FiO2 03/17/21 09:30 1.0 03/17/21 06:00 98.1 61 17 142/51 (81) 93 Nasal Cannula Labs 24H Laboratory Tests 2 03/17/21 11:19: Coronavirus (COVID-19)(PCR) NEGATIVE Home Medications Scheduled Famotidine (Famotidine) 20 Mg Tablet, 20 MG PO DAILY, (Reported) Ferrous Gluconate (Ferrous Gluconate) 324 Mg Tablet, 324 MG PO DAILY, (Reported) Folic Acid (Folic Acid) 1 Mg Tablet, 1 MG PO DAILY, (Reported) Gabapentin (Gabapentin) 400 Mg Capsule, 400 MG PO TID, (Reported) L.acidoph/L.bulg/B.bif/S.therm (Bacid Caplet) 1 Each Tablet, 1 TAB PO WM Loratadine (Loratadine) 10 Mg Tablet, 10 MG PO DAILY, (Reported) Metolazone (Metolazone) 2.5 Mg Tablet, 2.5 MG PO 2XW, (Reported) SAT, Potassium Chloride (Potassium Chloride) 10 Meq Tablet.er, 10 MEQ PO BID, (Reported) Pramipexole Di-HCl (Pramipexole Dihydrochloride) 1 Mg Tablet, 1 MG PO DAILY, (Reported) Sertraline HCl (Sertraline HCl) 50 Mg Tablet, 50 MG PO DAILY, (Reported) Spironolactone (Spironolactone) 25 Mg Tablet, 25 MG PO BID, (Reported) 2ND AT 1500 Torsemide (Torsemide) 20 Mg Tablet, 20 MG PO BID, (Reported) 2ND AT 1500 Allergies Coded Allergies: nabumetone (Verified Adverse Reaction, Intermediate, BLEEDING, 03/03/21) KUNAL DSOUZA DO Mar 17, 2021 14:38
--- NOTE | 2021-03-17 15:55 | DS.PDOC ---
Discharge Summary General Date of Admission Mar 03, 2021 at 16:05 Date of Discharge 03/17/21 Discharge Summary PROCEDURES PERFORMED DURING STAY: [None]. ADMITTING DIAGNOSES: Sepsis secondary to UTI Unwitnessed fall E. coli UTI Right sided community acquired pneumonia Heart failure with preserved ejection fraction GERD Restless legs DISCHARGE DIAGNOSES: Sepsis secondary to UTI Unwitnessed fall E. coli UTI Right sided community acquired pneumonia Heart failure with preserved ejection fraction GERD Restless legs Acute metabolic encephalopathy / acute delirium Obese BMI 31 Debility unable to perform ADLs Hypernatremia Hypokalemia COMPLICATIONS/CHIEF COMPLAINT: UTI. HISTORY OF PRESENT ILLNESS: This is an 85-year-old female admitted on 03/03/21 with a history of IBS, hypertension, dyslipidemia, endometrial CA status post hysterectomy, rheumatoid arthritis, reflux, osteoarthritis, generalized anxiety disorder, neuropathy, irritable bowel syndrome, diverticulosis, carpal tunnel surgery, brought in by ambulance after EMS was called by the patient's friend when the patient did not answer her phone. Glucose was 155, EKG was sinus rhythm, blood pressure was 133 mmHg systolic. She complained of joint pain of the left shoulder, right elbow with bruising. Hospitalist was called to admit the patient when she was found to have a right lower lobe pneumonia, UTI and mild rhabdomyolysis. HOSPITAL COURSE: During the hospital stay the following issue addressed Patient received treatment with antibiotic therapy for sepsis secondary to UTI. Also patient was found to have right lower lobe pneumonia, patient completed the course of antibiotics with positive dynamic. Patient received physical therapy in the hospital settings. Patient received treatment for heart failure with preserved ejection fraction and treatment for GERD with famotidine Also during the hospital stay patient developed acute delirium/acute metabolic encephalopathy secondary to sepsis and UTI improved after resolution of acute infection DISCHARGE MEDICATIONS: Please see below. ALLERGIES: Please see below. PHYSICAL EXAMINATION ON DISCHARGE: VITAL SIGNS: Please see below. GENERAL: no distresss. breathing easier today. no use of resp acc mm. able to complete sentences HEENT: Face is symmetric. Tongue is midline. Moist mucous membranes. LUNGS: Diminished bl wheezing HEART: S1 and S2, sinus rhythm. ABDOMEN: Soft, nontender and nondistended. Obese abdomen. EXTREMITIES: No cyanosis, clubbing or pitting edema. LABORATORY DATA: Please see below. IMAGING: Portable AP view of the chest FINDINGS: Cardiac silhouette is upper limits of normal. Lung rodrigues demonstrate advanced emphysematous changes. Superimposed right lower lobe airspace disease and small pleural effusion cannot be excluded. No pneumothorax. Skeletal structures demonstrate osteopenia and degenerative changes. IMPRESSION: Right lower lobe airspace disease and possible small pleural effusion. PROGNOSIS: Fair ACTIVITY: [As tolerated]. DIET: Cardiac DISPOSITION: [facility]. ITEMS TO FOLLOWUP ON ON OUTPATIENT: Follow-up with PCP DISCHARGE CONDITION: [Stable]. TIME SPENT ON DISCHARGE: 40minutes. Vital Signs/I&Os Vital Signs Date Time Temp Pulse Resp B/P (MAP) Pulse Ox O2 Delivery O2 Flow Rate FiO2 03/17/21 09:30 1.0 03/17/21 06:00 98.1 61 17 142/51 (81) 93 Nasal Cannula I&O- Last 24 Hours up to 6 AM 03/17/21 06:00 Intake Total 920 ml Output Total 2 ml Balance 918 ml Laboratory Data Labs 24H Laboratory Tests 2 03/17/21 11:19: Coronavirus (COVID-19)(PCR) NEGATIVE Discharge Medications Scheduled Famotidine (Famotidine) 20 Mg Tablet, 20 MG PO DAILY, (Reported) Ferrous Gluconate (Ferrous Gluconate) 324 Mg Tablet, 324 MG PO DAILY, (Reported) Folic Acid (Folic Acid) 1 Mg Tablet, 1 MG PO DAILY, (Reported) Gabapentin (Gabapentin) 400 Mg Capsule, 400 MG PO TID, (Reported) L.acidoph/L.bulg/B.bif/S.therm (Bacid Caplet) 1 Each Tablet, 1 TAB PO WM Loratadine (Loratadine) 10 Mg Tablet, 10 MG PO DAILY, (Reported) Metolazone (Metolazone) 2.5 Mg Tablet, 2.5 MG PO 2XW, (Reported) MON, THURS Potassium Chloride (Potassium Chloride) 10 Meq Tablet.er, 10 MEQ PO BID, (Reported) Pramipexole Di-HCl (Pramipexole Dihydrochloride) 1 Mg Tablet, 1 MG PO DAILY, (Reported) Sertraline HCl (Sertraline HCl) 50 Mg Tablet, 50 MG PO DAILY, (Reported) Spironolactone (Spironolactone) 25 Mg Tablet, 25 MG PO BID, (Reported) 2ND AT 1500 Torsemide (Torsemide) 20 Mg Tablet, 20 MG PO BID, (Reported) 2ND AT 1500 Allergies Coded Allergies: nabumetone (Verified Adverse Reaction, Intermediate, BLEEDING, 03/03/21) LAURO TODD DO Mar 17, 2021 15:55
== END 2021-03-17 13:37 | DRG 871 ==
LOC: EDBD 12:29 → M ED 12:29 → M ED INP 16:05 → ENRESERV 17:00 → M MSPAV 18:09
PROVIDERS: ADMIT General Practice; ATTEND Internal Medicine
DX: A41.9 Sepsis, unspecified organism (principal); J18.9 Pneumonia, unspecified organism; G93.41 Metabolic encephalopathy; N39.0 Urinary tract infection, site not specified; M62.82 Rhabdomyolysis; I50.32 Chronic diastolic (congestive) heart failure; E87.0 Hyperosmolality and hypernatremia; I11.0 Hypertensive heart disease with heart failure; E78.5 Hyperlipidemia, unspecified; K58.9 Irritable bowel syndrome, unspecified; M06.9 Rheumatoid arthritis, unspecified; F41.1 Generalized anxiety disorder; M16.12 Unilateral primary osteoarthritis, left hip; M54.2 Cervicalgia; M54.50 Low back pain, unspecified; G62.9 Polyneuropathy, unspecified; Z96.641 Presence of right artificial hip joint; Z90.49 Acquired absence of other specified parts of digestive tract; Z96.653 Presence of artificial knee joint, bilateral; Z98.49 Cataract extraction status, unspecified eye; Z90.79 Acquired absence of other genital organ(s); S40.012A Contusion of left shoulder, initial encounter; S50.01XA Contusion of right elbow, initial encounter; W01.0XXA Fall on same level from slipping, tripping and stumbling without subsequent striking against object, initial encounter; Y92.009 Unspecified place in unspecified non-institutional (private) residence as the place of occurrence of the external cause; D50.9 Iron deficiency anemia, unspecified; J30.9 Allergic rhinitis, unspecified; Z20.822 Contact with and (suspected) exposure to COVID-19; Z79.84 Long term (current) use of oral hypoglycemic drugs; Z79.899 Other long term (current) drug therapy; Z88.8 Allergy status to other drugs, medicaments and biological substances; B96.20 Unspecified Escherichia coli [E. coli] as the cause of diseases classified elsewhere; R32 Unspecified urinary incontinence; Z68.31 Body mass index [BMI] 31.0-31.9, adult; E66.9 Obesity, unspecified; E87.6 Hypokalemia; Z74.1 Need for assistance with personal care; R26.89 Other abnormalities of gait and mobility

== ENCOUNTER → 2021-03-21 | Outpatient (REF) | payer MEDICARE, MEDICAID ==
[~2021-03-21] MED LIST changes: +BACITAB PO; +CEFD300CAP PO; +DOXY100T PO; +FAMO20TA5 PO; +FERR32TA PO; +FOLI1TAB11 PO; +GABA-283 PO; +LORA-674 PO; +METO25TA PO; +POTA1TAB23 PO; +PRAM1TAB7 PO; +SERT50TA29 PO; +SPIR-10 PO; +TORS20TA2 PO
[2021-03-21 14:39] LABS: HEMATOCRIT 43.9 % (36.0-47.0); HEMOGLOBIN 13.4 g/dl (12.0-15.5); MEAN CORPUSCULAR HEMOGLOBIN 28.3 pg (27.0-33.0); MEAN CORPUSCULAR HGB CONC 30.5 g/dl (32.0-36.5); MEAN CORPUSCULAR VOLUME 92.6 fl (80.0-96.0); PLATELET COUNT, AUTOMATED 360 10^3/uL (150-450); RED BLOOD COUNT 4.74 10^6/uL (4.00-5.40); WHITE BLOOD COUNT 14.5 10^3/uL (4.0-10.0)
[2021-03-21 15:05] LABS: BLOOD UREA NITROGEN 18 MG/DL (7-18); CALCIUM LEVEL 9.3 MG/DL (8.8-10.2); CARBON DIOXIDE LEVEL 35 MEQ/L (21-32); CHLORIDE LEVEL 96 MEQ/L (98-107); CREATININE FOR GFR 0.89 MG/DL (0.55-1.30); GLOMERULAR FILTRATION RATE > 60.0 (>32); GLUCOSE, FASTING 165 MG/DL (70-100); IRON (FE) 26 UG/DL (50-170); MAGNESIUM LEVEL 2.3 MG/DL (1.8-2.4); POTASSIUM SERUM 4.1 MEQ/L (3.5-5.1); SODIUM LEVEL 137 MEQ/L (136-145)
== END ==
LOC: SKLAB5 07:00
PROVIDERS: ATTEND Neuromusculoskeletal Medicine & OMM
DX: I50.9 Heart failure, unspecified (principal)

== ENCOUNTER → 2021-03-21 | Outpatient (REF) | payer MEDICARE, MEDICAID | LOC: SKLAB5 10:57 | PROVIDERS: ATTEND Neuromusculoskeletal Medicine & OMM | DX: Z20.822 Contact with and (suspected) exposure to COVID-19 (principal) ==

== ENCOUNTER → 2021-03-23 | Outpatient (REF) | payer MEDICARE, MEDICAID ==
[2021-03-23 09:56] LABS: HEMATOCRIT 44.1 % (36.0-47.0); HEMOGLOBIN 13.7 g/dl (12.0-15.5); MEAN CORPUSCULAR HEMOGLOBIN 28.8 pg (27.0-33.0); MEAN CORPUSCULAR HGB CONC 31.1 g/dl (32.0-36.5); MEAN CORPUSCULAR VOLUME 92.8 fl (80.0-96.0); PLATELET COUNT, AUTOMATED 322 10^3/uL (150-450); RED BLOOD COUNT 4.75 10^6/uL (4.00-5.40); WHITE BLOOD COUNT 12.5 10^3/uL (4.0-10.0)
== END ==
LOC: SKLAB5 07:00
PROVIDERS: ATTEND Neuromusculoskeletal Medicine & OMM
DX: D72.829 Elevated white blood cell count, unspecified (principal)

== ENCOUNTER → 2021-03-29 | Outpatient (REF) | payer MEDICARE, MEDICAID | LOC: SKLAB5 13:50 | PROVIDERS: ATTEND Neuromusculoskeletal Medicine & OMM | DX: Z20.822 Contact with and (suspected) exposure to COVID-19 (principal) ==

== ENCOUNTER → 2021-04-05 | Outpatient (REF) | payer MEDICARE, MEDICAID | LOC: SKLAB5 14:34 | PROVIDERS: ATTEND Neuromusculoskeletal Medicine & OMM | DX: Z20.822 Contact with and (suspected) exposure to COVID-19 (principal) ==

== ENCOUNTER → 2021-04-12 | Outpatient (REF) | payer MEDICARE, MEDICAID | LOC: SKLAB5 11:40 | PROVIDERS: ATTEND Internal Medicine | DX: Z20.822 Contact with and (suspected) exposure to COVID-19 (principal) ==

== ENCOUNTER → 2021-04-14 | Outpatient (REF) | payer MEDICARE, MEDICAID ==
[2021-04-14 13:48] LABS: APPEARANCE, URINE HAZY (CLEAR); BILIRUBIN, URINE AUTO NEGATIVE (NEGATIVE); COLOR, URINE YELLOW (YELLOW); GLUCOSE, URINE (UA) AUTO NEGATIVE (NEGATIVE); KETONE, URINE AUTO NEGATIVE (NEGATIVE); LEUKOCYTE ESTERASE, URINE AUTO 2+ (NEGATIVE); NITRITE, URINE AUTO NEGATIVE (NEGATIVE); PROTEIN, URINE AUTO NEGATIVE (NEGATIVE); SPECIFIC GRAVITY URINE AUTO 1.009 (1.002-1.035); UROBILINOGEN, URINE AUTO 0.2 mg/dL (0.0-2.0)
[2021-04-14 13:49] LABS: BACTERIA, URINE AUTO 2+ (NEGATIVE); BLOOD, URINE BLOOD NEGATIVE (NEGATIVE); RBC, URINE AUTO 2 /HPF (0-3); SQUAMOUS EPITHELIAL CELL UR AU 1 /HPF (0-6); WBC, URINE AUTO 62 /HPF (0-3)
== END ==
LOC: SKLAB5 10:49
PROVIDERS: ATTEND Neuromusculoskeletal Medicine & OMM
DX: R35.0 Frequency of micturition (principal); R11.10 Vomiting, unspecified

== ENCOUNTER → 2021-04-18 | Outpatient (REF) | payer MEDICARE, MEDICAID ==
[2021-04-18 14:49] LABS: HEMATOCRIT 39.8 % (36.0-47.0); HEMOGLOBIN 12.1 g/dl (12.0-15.5); MEAN CORPUSCULAR HGB CONC 30.4 g/dl (32.0-36.5); MEAN CORPUSCULAR VOLUME 92.1 fl (80.0-96.0); PLATELET COUNT, AUTOMATED 415 10^3/uL (150-450); RED BLOOD COUNT 4.32 10^6/uL (4.00-5.40); WHITE BLOOD COUNT 11.3 10^3/uL (4.0-10.0)
[2021-04-18 15:16] LABS: CALCIUM LEVEL 8.8 MG/DL (8.8-10.2); CREATININE FOR GFR 0.97 MG/DL (0.55-1.30); GLOMERULAR FILTRATION RATE 58.1 (>32); POTASSIUM SERUM 3.3 MEQ/L (3.5-5.1)
== END ==
LOC: SKLAB5 07:00
PROVIDERS: ATTEND Neuromusculoskeletal Medicine & OMM
DX: R06.02 Shortness of breath (principal)

== ENCOUNTER → 2021-04-19 | Outpatient (REF) | payer MEDICARE, MEDICAID | LOC: SKLAB5 07:00 | PROVIDERS: ATTEND Neuromusculoskeletal Medicine & OMM | DX: Z20.822 Contact with and (suspected) exposure to COVID-19 (principal) ==

== ENCOUNTER → 2021-04-24 | Outpatient (REF) | payer MEDICARE, MEDICAID ==
[2021-04-24 08:04] LABS: HEMATOCRIT 41.7 % (36.0-47.0); HEMOGLOBIN 12.9 g/dl (12.0-15.5); MEAN CORPUSCULAR HEMOGLOBIN 28.4 pg (27.0-33.0); MEAN CORPUSCULAR HGB CONC 30.9 g/dl (32.0-36.5); MEAN CORPUSCULAR VOLUME 91.9 fl (80.0-96.0); PLATELET COUNT, AUTOMATED 511 10^3/uL (150-450); RED BLOOD COUNT 4.54 10^6/uL (4.00-5.40); WHITE BLOOD COUNT 9.4 10^3/uL (4.0-10.0)
== END ==
LOC: SKLAB5 07:00
PROVIDERS: ATTEND Neuromusculoskeletal Medicine & OMM
DX: M54.9 Dorsalgia, unspecified (principal)

== ENCOUNTER → 2021-04-26 | Outpatient (REF) | payer MEDICARE, MEDICAID ==
[2021-04-26 13:59] LABS: HEMOGLOBIN 13.7 g/dl (12.0-15.5); MEAN CORPUSCULAR HEMOGLOBIN 28.8 pg (27.0-33.0); MEAN CORPUSCULAR HGB CONC 31.9 g/dl (32.0-36.5); MEAN CORPUSCULAR VOLUME 90.5 fl (80.0-96.0); PLATELET COUNT, AUTOMATED 525 10^3/uL (150-450); RED BLOOD COUNT 4.75 10^6/uL (4.00-5.40); WHITE BLOOD COUNT 10.4 10^3/uL (4.0-10.0)
[2021-04-26 16:03] LABS: INFLUENZA A AMPLIFICATION NEGATIVE (NEGATIVE); INFLUENZA B AMPLIFICATION NEGATIVE (NEGATIVE)
[2021-04-26 16:05] LABS: ALBUMIN 2.9 GM/DL (3.2-5.2); BILIRUBIN,TOTAL 0.4 MG/DL (0.2-1.0); CALCIUM LEVEL 9.5 MG/DL (8.8-10.2); CREATININE FOR GFR 1.26 MG/DL (0.55-1.30); POTASSIUM SERUM 3.3 MEQ/L (3.5-5.1); THYROID STIMULATING HORMONE 2.31 uIU/ML (0.358-3.740); TOTAL PROTEIN 7.3 GM/DL (6.4-8.2)
== END ==
LOC: SKLAB5 10:08
PROVIDERS: ATTEND Neuromusculoskeletal Medicine & OMM
DX: R05.3 Chronic cough (principal); R63.4 Abnormal weight loss; I50.9 Heart failure, unspecified; R91.8 Other nonspecific abnormal finding of lung field

== ENCOUNTER → 2021-04-26 | Outpatient (CLI) | payer MEDICARE, MEDICAID | LOC: M RAD 11:43 | PROVIDERS: ATTEND Neuromusculoskeletal Medicine & OMM | DX: R91.8 Other nonspecific abnormal finding of lung field (principal); R05.9 Cough, unspecified ==

== ENCOUNTER → 2021-05-01 | Outpatient (REF) | payer MEDICARE, MEDICAID ==
[2021-05-01 07:13] LABS: CALCIUM LEVEL 9.4 MG/DL (8.8-10.2); CREATININE FOR GFR 0.98 MG/DL (0.55-1.30); GLOMERULAR FILTRATION RATE 57.4 (>32); POTASSIUM SERUM 2.4 MEQ/L (3.5-5.1)
== END ==
LOC: SKLAB5 12:07
PROVIDERS: ATTEND Nurse Practitioner Family
DX: E87.6 Hypokalemia (principal)

== ENCOUNTER → 2021-08-10 | Outpatient (REF) | payer MEDICARE, MEDICAID, OTHER | LOC: SKLAB5 07:57 | PROVIDERS: ATTEND Internal Medicine | DX: I50.9 Heart failure, unspecified (principal) ==

== ENCOUNTER → 2021-08-10 | Outpatient (REF) | payer MEDICARE, MEDICAID, OTHER ==
[2021-08-10 08:40] LABS: HEMATOCRIT 35.9 % (36.0-47.0); HEMOGLOBIN 11.8 g/dl (12.0-15.5); MEAN CORPUSCULAR HEMOGLOBIN 29.6 pg (27.0-33.0); MEAN CORPUSCULAR HGB CONC 32.9 g/dl (32.0-36.5); PLATELET COUNT, AUTOMATED 369 10^3/uL (150-450); RED BLOOD COUNT 3.99 10^6/uL (4.00-5.40); WHITE BLOOD COUNT 9.9 10^3/uL (4.0-10.0)
[2021-08-10 09:13] LABS: BLOOD UREA NITROGEN 17 MG/DL (7-18); CALCIUM LEVEL 8.7 MG/DL (8.8-10.2); CARBON DIOXIDE LEVEL 36 MEQ/L (21-32); CHLORIDE LEVEL 91 MEQ/L (98-107); CREATININE FOR GFR 0.85 MG/DL (0.55-1.30); GLOMERULAR FILTRATION RATE > 60.0 (>32); GLUCOSE, FASTING 91 MG/DL (70-100); IRON (FE) 49 UG/DL (50-170); POTASSIUM SERUM 2.8 MEQ/L (3.5-5.1); SODIUM LEVEL 134 MEQ/L (136-145)
== END ==
LOC: SKLAB5 07:54
PROVIDERS: ATTEND Neuromusculoskeletal Medicine & OMM
DX: I50.9 Heart failure, unspecified (principal)

== ENCOUNTER → 2021-08-11 | Outpatient (REF) | payer MEDICARE, MEDICAID, OTHER ==
[2021-08-11 11:41] LABS: CALCIUM LEVEL 8.6 MG/DL (8.8-10.2); CREATININE FOR GFR 0.95 MG/DL (0.55-1.30); GLOMERULAR FILTRATION RATE 59.5 (>32); POTASSIUM SERUM 2.9 MEQ/L (3.5-5.1)
== END ==
LOC: SKLAB5 09:38
PROVIDERS: ATTEND Neuromusculoskeletal Medicine & OMM
DX: E87.6 Hypokalemia (principal)

== ENCOUNTER → 2021-08-13 | Outpatient (REF) | payer MEDICARE, MEDICAID, OTHER ==
[2021-08-13 09:06] LABS: BLOOD UREA NITROGEN 13 MG/DL (7-18); CARBON DIOXIDE LEVEL 30 MEQ/L (21-32); CHLORIDE LEVEL 95 MEQ/L (98-107); CREATININE FOR GFR 0.87 MG/DL (0.55-1.30); GLOMERULAR FILTRATION RATE > 60.0 (>32); GLUCOSE, FASTING 126 MG/DL (70-100); POTASSIUM SERUM 3.4 MEQ/L (3.5-5.1); SODIUM LEVEL 135 MEQ/L (136-145)
== END ==
LOC: SKLAB5 09:03
PROVIDERS: ATTEND Neuromusculoskeletal Medicine & OMM
DX: E87.6 Hypokalemia (principal)

== ENCOUNTER → 2021-08-14 | Outpatient (REF) | payer MEDICARE, MEDICAID, OTHER ==
[2021-08-14 14:00] LABS: BLOOD UREA NITROGEN 14 MG/DL (7-18); CALCIUM LEVEL 8.9 MG/DL (8.8-10.2); CARBON DIOXIDE LEVEL 31 MEQ/L (21-32); CHLORIDE LEVEL 96 MEQ/L (98-107); GLOMERULAR FILTRATION RATE > 60.0 (>32); GLUCOSE, FASTING 94 MG/DL (70-100); POTASSIUM SERUM 3.7 MEQ/L (3.5-5.1); SODIUM LEVEL 134 MEQ/L (136-145)
== END ==
LOC: SKLAB5 11:39
PROVIDERS: ATTEND Neuromusculoskeletal Medicine & OMM
DX: E87.6 Hypokalemia (principal)

== ENCOUNTER → 2021-08-16 | Outpatient (REF) | payer MEDICARE, MEDICAID, OTHER ==
[2021-08-16 09:59] LABS: BLOOD UREA NITROGEN 12 MG/DL (7-18); CALCIUM LEVEL 9.2 MG/DL (8.8-10.2); CARBON DIOXIDE LEVEL 30 MEQ/L (21-32); CHLORIDE LEVEL 98 MEQ/L (98-107); GLOMERULAR FILTRATION RATE > 60.0 (>32); GLUCOSE, FASTING 121 MG/DL (70-100); POTASSIUM SERUM 3.5 MEQ/L (3.5-5.1); SODIUM LEVEL 136 MEQ/L (136-145)
== END ==
LOC: SKLAB5 09:16
PROVIDERS: ATTEND Neuromusculoskeletal Medicine & OMM
DX: E87.6 Hypokalemia (principal)

== ENCOUNTER → 2021-08-29 | Outpatient (REF) | payer MEDICARE, MEDICAID, OTHER ==
[2021-08-29 08:51] LABS: BLOOD UREA NITROGEN 8 MG/DL (7-18); CALCIUM LEVEL 9.2 MG/DL (8.8-10.2); CARBON DIOXIDE LEVEL 33 MEQ/L (21-32); CHLORIDE LEVEL 98 MEQ/L (98-107); CREATININE FOR GFR 0.83 MG/DL (0.55-1.30); GLOMERULAR FILTRATION RATE > 60.0 (>32); GLUCOSE, FASTING 107 MG/DL (70-100); POTASSIUM SERUM 3.1 MEQ/L (3.5-5.1); SODIUM LEVEL 139 MEQ/L (136-145)
== END ==
LOC: SKLAB5 07:00
PROVIDERS: ATTEND Nurse Practitioner Family
DX: R41.0 Disorientation, unspecified (principal)

== ENCOUNTER → 2021-08-31 | Outpatient (REF) | payer MEDICARE, MEDICAID, OTHER ==
[2021-08-31 11:25] LABS: HEMOGLOBIN 11.2 g/dl (12.0-15.5); MEAN CORPUSCULAR HEMOGLOBIN 29.9 pg (27.0-33.0); MEAN CORPUSCULAR VOLUME 93.3 fl (80.0-96.0); PLATELET COUNT, AUTOMATED 376 10^3/uL (150-450); RED BLOOD COUNT 3.75 10^6/uL (4.00-5.40); WHITE BLOOD COUNT 7.6 10^3/uL (4.0-10.0)
[2021-08-31 12:08] LABS: BLOOD UREA NITROGEN 9 MG/DL (7-18); CALCIUM LEVEL 8.2 MG/DL (8.8-10.2); CARBON DIOXIDE LEVEL 33 MEQ/L (21-32); CHLORIDE LEVEL 100 MEQ/L (98-107); CREATININE FOR GFR 0.79 MG/DL (0.55-1.30); GLOMERULAR FILTRATION RATE > 60.0 (>32); GLUCOSE, FASTING 159 MG/DL (70-100); IRON (FE) 58 UG/DL (50-170); POTASSIUM SERUM 3.4 MEQ/L (3.5-5.1); SODIUM LEVEL 139 MEQ/L (136-145)
== END ==
LOC: SKLAB5 12:51
PROVIDERS: ATTEND Neuromusculoskeletal Medicine & OMM
DX: I50.9 Heart failure, unspecified (principal); D64.9 Anemia, unspecified; R41.0 Disorientation, unspecified

== ENCOUNTER → 2021-09-05 | Outpatient (REF) | payer MEDICARE, MEDICAID, OTHER ==
[2021-09-05 08:06] LABS: BLOOD UREA NITROGEN 9 MG/DL (7-18); CALCIUM LEVEL 9.1 MG/DL (8.8-10.2); CARBON DIOXIDE LEVEL 32 MEQ/L (21-32); CHLORIDE LEVEL 102 MEQ/L (98-107); CREATININE FOR GFR 0.79 MG/DL (0.55-1.30); GLOMERULAR FILTRATION RATE > 60.0 (>32); GLUCOSE, FASTING 81 MG/DL (70-100); POTASSIUM SERUM 3.7 MEQ/L (3.5-5.1); SODIUM LEVEL 142 MEQ/L (136-145)
== END ==
LOC: SKLAB5 08:59
PROVIDERS: ATTEND Neuromusculoskeletal Medicine & OMM
DX: E87.6 Hypokalemia (principal)

== ENCOUNTER → 2021-12-09 | Outpatient (REF) | payer MEDICARE, MEDICAID ==
[2021-12-09 11:36] LABS: HEMATOCRIT 34.2 % (36.0-47.0); HEMOGLOBIN 10.9 g/dl (12.0-15.5); MEAN CORPUSCULAR HEMOGLOBIN 30.2 pg (27.0-33.0); MEAN CORPUSCULAR HGB CONC 31.9 g/dl (32.0-36.5); MEAN CORPUSCULAR VOLUME 94.7 fl (80.0-96.0); PLATELET COUNT, AUTOMATED 253 10^3/uL (150-450); RED BLOOD COUNT 3.61 10^6/uL (4.00-5.40); WHITE BLOOD COUNT 3.6 10^3/uL (4.0-10.0)
[2021-12-09 12:18] LABS: ALBUMIN 2.4 GM/DL (3.2-5.2); ALT/SGPT 10 U/L (12-78); BILIRUBIN,TOTAL 0.3 MG/DL (0.2-1.0); BLOOD UREA NITROGEN 13 MG/DL (7-18); CALCIUM LEVEL 8.6 MG/DL (8.8-10.2); CARBON DIOXIDE LEVEL 33 MEQ/L (21-32); CHLORIDE LEVEL 97 MEQ/L (98-107); CREATININE FOR GFR 0.75 MG/DL (0.55-1.30); GLOMERULAR FILTRATION RATE > 60.0 (>32); GLUCOSE, FASTING 85 MG/DL (70-100); POTASSIUM SERUM 3.1 MEQ/L (3.5-5.1); SODIUM LEVEL 134 MEQ/L (136-145); TOTAL PROTEIN 6.2 GM/DL (6.4-8.2)
== END ==
LOC: SKLAB5 09:48
PROVIDERS: ATTEND Neuromusculoskeletal Medicine & OMM
DX: U07.1 COVID-19 (principal); E11.9 Type 2 diabetes mellitus without complications

== ENCOUNTER → 2021-12-21 | Outpatient (REF) | payer MEDICARE, MEDICAID ==
[2021-12-21 07:49] LABS: HEMATOCRIT 37.5 % (36.0-47.0); HEMOGLOBIN 11.9 g/dl (12.0-15.5); MEAN CORPUSCULAR HEMOGLOBIN 30.1 pg (27.0-33.0); MEAN CORPUSCULAR HGB CONC 31.7 g/dl (32.0-36.5); MEAN CORPUSCULAR VOLUME 94.9 fl (80.0-96.0); PLATELET COUNT, AUTOMATED 411 10^3/uL (150-450); RED BLOOD COUNT 3.95 10^6/uL (4.00-5.40); WHITE BLOOD COUNT 6.1 10^3/uL (4.0-10.0)
[2021-12-21 08:28] LABS: ALBUMIN 2.6 GM/DL (3.2-5.2); ALT/SGPT 9 U/L (12-78); BILIRUBIN,TOTAL 0.3 MG/DL (0.2-1.0); BLOOD UREA NITROGEN 12 MG/DL (7-18); CALCIUM LEVEL 8.9 MG/DL (8.8-10.2); CARBON DIOXIDE LEVEL 31 MEQ/L (21-32); CHLORIDE LEVEL 99 MEQ/L (98-107); CREATININE FOR GFR 0.84 MG/DL (0.55-1.30); GLOMERULAR FILTRATION RATE > 60.0 (>32); GLUCOSE, FASTING 108 MG/DL (70-100); POTASSIUM SERUM 3.8 MEQ/L (3.5-5.1); SODIUM LEVEL 134 MEQ/L (136-145); TOTAL PROTEIN 6.6 GM/DL (6.4-8.2)
== END ==
LOC: SKLAB5 15:37
PROVIDERS: ATTEND Neuromusculoskeletal Medicine & OMM
DX: U07.1 COVID-19 (principal); Z79.899 Other long term (current) drug therapy

== ENCOUNTER → 2021-12-25 | Outpatient (REF) | payer MEDICARE, MEDICAID | LOC: SKLAB5 08:48 | PROVIDERS: ATTEND Nurse Practitioner Family | DX: U07.1 COVID-19 (principal); Z53.8 Procedure and treatment not carried out for other reasons ==

== ENCOUNTER → 2022-01-11 | Outpatient (REF) | payer MEDICARE, MEDICAID ==
[2022-01-11 14:07] LABS: BASO % 0.6 % (0.0-1.0); EOS # 0.4 10^3/uL (0.0-0.5); HEMATOCRIT 36.2 % (36.0-47.0); HEMOGLOBIN 11.8 g/dl (12.0-15.5); LYMPH # 1.5 10^3/uL (1.5-5.0); LYMPH % 22.5 % (24.0-44.0); MEAN CORPUSCULAR HEMOGLOBIN 30.6 pg (27.0-33.0); MEAN CORPUSCULAR HGB CONC 32.6 g/dl (32.0-36.5); MEAN CORPUSCULAR VOLUME 93.8 fl (80.0-96.0); MONO # 0.4 10^3/uL (0.0-0.8); MONO % 5.8 % (2.0-8.0); NEUTROPHILS # 4.3 10^3/uL (1.5-8.5); NEUTROPHILS % 64.8 % (36.0-66.0); PLATELET COUNT, AUTOMATED 399 10^3/uL (150-450); RED BLOOD COUNT 3.86 10^6/uL (4.00-5.40); WHITE BLOOD COUNT 6.7 10^3/uL (4.0-10.0)
[2022-01-11 14:46] LABS: ALBUMIN 2.6 GM/DL (3.2-5.2); ALT/SGPT 9 U/L (12-78); BILIRUBIN,TOTAL 0.2 MG/DL (0.2-1.0); BLOOD UREA NITROGEN 13 MG/DL (7-18); CALCIUM LEVEL 8.7 MG/DL (8.8-10.2); CARBON DIOXIDE LEVEL 31 MEQ/L (21-32); CHLORIDE LEVEL 98 MEQ/L (98-107); GLOMERULAR FILTRATION RATE > 60.0 (>32); GLUCOSE, FASTING 126 MG/DL (70-100); POTASSIUM SERUM 3.7 MEQ/L (3.5-5.1); SODIUM LEVEL 134 MEQ/L (136-145); TOTAL PROTEIN 6.6 GM/DL (6.4-8.2)
[2022-01-11 14:51] LABS: APPEARANCE, URINE MANUAL HAZY (CLEAR); COLOR, URINE MANUAL YELLOW (YELLOW)
[2022-01-11 14:52] LABS: BILIRUBIN, URINE MANUAL NEGATIVE (NEGATIVE); BLOOD URINE MANUAL TRACE (NEGATIVE); LEUKOCYTE ESTERASE, URINE MAN POSITIVE (NEGATIVE); SPECIFIC GRAVITY,URINE MANUAL 1.015 (1.002-1.035); UROBILINOGEN, URINE MANUAL NORMAL (NORMAL)
[2022-01-11 14:53] LABS: GLUCOSE, URINE (UA) MANUAL NEGATIVE (NEGATIVE); KETONE, URINE MANUAL NEGATIVE (NEGATIVE); NITRITE, URINE MANUAL NEGATIVE (NEGATIVE); PROTEIN, URINE MANUAL TRACE mg/dL (NEGATIVE)
[2022-01-11 15:12] LABS: RBC, URINE 0-1 /hpf (0-3); WBC, URINE TNTC /hpf (0-3)
[2022-01-11 15:13] LABS: BACTERIA, URINE LARGE AMOUNT; SQUAMOUS EPITHELIAL CELL URINE SMALL AMOUNT /hpf (SMALL AMT)
[2022-01-11 15:24] LABS: VITAMIN B12 LEVEL 335 PG/ML (247-911)
== END ==
LOC: SKLAB5 11:44
PROVIDERS: ATTEND Nurse Practitioner Family
DX: R41.0 Disorientation, unspecified (principal)

== ENCOUNTER → 2022-02-23 | Outpatient (REF) | payer MEDICARE, MEDICAID ==
[2022-02-22 09:01] LABS: BLOOD UREA NITROGEN 14 MG/DL (7-18); CALCIUM LEVEL 8.7 MG/DL (8.8-10.2); CARBON DIOXIDE LEVEL 34 MEQ/L (21-32); CHLORIDE LEVEL 98 MEQ/L (98-107); CREATININE FOR GFR 0.89 MG/DL (0.55-1.30); GLOMERULAR FILTRATION RATE > 60.0 (>32); GLUCOSE, FASTING 123 MG/DL (70-100); NT-PRO BNP 443 PG/ML (<450); POTASSIUM SERUM 3.9 MEQ/L (3.5-5.1); SODIUM LEVEL 137 MEQ/L (136-145)
== END ==
LOC: SKLAB5 09:38
PROVIDERS: ATTEND Nurse Practitioner Family
DX: D64.9 Anemia, unspecified (principal)

== ENCOUNTER → 2022-02-23 | Outpatient (REF) | payer MEDICARE, MEDICAID ==
[2022-02-23 11:44] LABS: BLOOD UREA NITROGEN 15 MG/DL (7-18); CALCIUM LEVEL 9.1 MG/DL (8.8-10.2); CARBON DIOXIDE LEVEL 35 MEQ/L (21-32); CHLORIDE LEVEL 96 MEQ/L (98-107); CREATININE FOR GFR 0.87 MG/DL (0.55-1.30); GLOMERULAR FILTRATION RATE > 60.0 (>32); GLUCOSE, FASTING 136 MG/DL (70-100); NT-PRO BNP 245 PG/ML (<450); POTASSIUM SERUM 3.5 MEQ/L (3.5-5.1); SODIUM LEVEL 137 MEQ/L (136-145)
== END ==
LOC: SKLAB5 09:40
PROVIDERS: ATTEND Nurse Practitioner Family
DX: R60.0 Localized edema (principal)

== ENCOUNTER → 2022-03-01 | Outpatient (CLI) | payer MEDICARE, MEDICAID | LOC: M RAD 14:39 | PROVIDERS: ATTEND Neuromusculoskeletal Medicine & OMM | DX: R22.41 Localized swelling, mass and lump, right lower limb (principal) ==

== ENCOUNTER → 2022-03-02 | Outpatient (REF) | payer MEDICARE, MEDICAID ==
[2022-03-02 08:01] LABS: HEMATOCRIT 39.1 % (36.0-47.0); HEMOGLOBIN 12.3 g/dl (12.0-15.5); MEAN CORPUSCULAR HEMOGLOBIN 30.2 pg (27.0-33.0); MEAN CORPUSCULAR HGB CONC 31.5 g/dl (32.0-36.5); MEAN CORPUSCULAR VOLUME 96.1 fl (80.0-96.0); PLATELET COUNT, AUTOMATED 403 10^3/uL (150-450); RED BLOOD COUNT 4.07 10^6/uL (4.00-5.40); WHITE BLOOD COUNT 6.4 10^3/uL (4.0-10.0)
[2022-03-02 08:51] LABS: BLOOD UREA NITROGEN 14 MG/DL (9-23); CALCIUM LEVEL 9.3 MG/DL (8.3-10.6); CARBON DIOXIDE LEVEL 32 MMOL/L (20-31); CHLORIDE LEVEL 96 MMOL/L (98-107); CREATININE FOR GFR 0.76 MG/DL (0.55-1.30); GLOMERULAR FILTRATION RATE > 60.0 (>32); GLUCOSE, FASTING 94 MG/DL (74-106); IRON (FE) 29 UG/DL (50-170); POTASSIUM SERUM 3.7 MMOL/L (3.5-5.1); SODIUM LEVEL 137 MMOL/L (136-145)
== END ==
LOC: SKLAB5 11:42
PROVIDERS: ATTEND Nurse Practitioner Family
DX: D64.9 Anemia, unspecified (principal)

== ENCOUNTER → 2022-03-30 | Outpatient (REF) | payer MEDICARE, MEDICAID ==
[2022-03-30 08:24] LABS: ALBUMIN 2.5 G/DL (3.2-5.2); ALKALINE PHOSPHATASE 108 U/L (46-116); ALT/SGPT < 9 U/L (7.0-40); AST/SGOT 13 U/L (<34); BILIRUBIN,TOTAL 0.3 MG/DL (0.3-1.2); BLOOD UREA NITROGEN 15 MG/DL (9-23); CALCIUM LEVEL 8.7 MG/DL (8.3-10.6); CARBON DIOXIDE LEVEL 28 MMOL/L (20-31); CHLORIDE LEVEL 100 MMOL/L (98-107); CREATININE FOR GFR 0.79 MG/DL (0.55-1.30); GLOMERULAR FILTRATION RATE > 60.0 (>32); GLUCOSE, FASTING 101 MG/DL (74-106); POTASSIUM SERUM 3.9 MMOL/L (3.5-5.1); SODIUM LEVEL 139 MMOL/L (136-145); TOTAL PROTEIN 6.8 G/DL (5.7-8.2)
== END ==
LOC: SKLAB5 07:00
PROVIDERS: ATTEND Nurse Practitioner Family
DX: I50.9 Heart failure, unspecified (principal)

== ENCOUNTER → 2022-06-01 | Outpatient (REF) | payer MEDICARE, MEDICAID ==
[2022-06-01 08:26] LABS: HEMATOCRIT 36.6 % (36.0-47.0); HEMOGLOBIN 11.3 g/dl (12.0-15.5); MEAN CORPUSCULAR HGB CONC 30.9 g/dl (32.0-36.5); MEAN CORPUSCULAR VOLUME 94.1 fl (80.0-96.0); PLATELET COUNT, AUTOMATED 307 10^3/uL (150-450); RED BLOOD COUNT 3.89 10^6/uL (4.00-5.40); WHITE BLOOD COUNT 5.4 10^3/uL (4.0-10.0)
[2022-06-01 08:36] LABS: BLOOD UREA NITROGEN 20 MG/DL (9-23); CALCIUM LEVEL 8.5 MG/DL (8.3-10.6); CARBON DIOXIDE LEVEL 32 MMOL/L (20-31); CHLORIDE LEVEL 102 MMOL/L (98-107); GLOMERULAR FILTRATION RATE > 60.0 (>32); GLUCOSE, FASTING 106 MG/DL (74-106); POTASSIUM SERUM 3.6 MMOL/L (3.5-5.1); SODIUM LEVEL 140 MMOL/L (136-145)
== END ==
LOC: SKLAB5 14:04
PROVIDERS: ATTEND Internal Medicine
DX: D64.9 Anemia, unspecified (principal); I50.9 Heart failure, unspecified

== ENCOUNTER → 2022-06-29 | Outpatient (REF) | payer MEDICARE, MEDICAID | LOC: SKLAB5 10:16 | PROVIDERS: ATTEND Internal Medicine | DX: D64.9 Anemia, unspecified (principal) ==

== ENCOUNTER → 2022-06-29 | Outpatient (REF) | payer MEDICARE, MEDICAID ==
[2022-06-29 13:16] LABS: HEMATOCRIT 39.7 % (36.0-47.0); HEMOGLOBIN 12.3 g/dl (12.0-15.5); MEAN CORPUSCULAR HEMOGLOBIN 28.7 pg (27.0-33.0); MEAN CORPUSCULAR VOLUME 92.8 fl (80.0-96.0); PLATELET COUNT, AUTOMATED 345 10^3/uL (150-450); RED BLOOD COUNT 4.28 10^6/uL (4.00-5.40); WHITE BLOOD COUNT 6.3 10^3/uL (4.0-10.0)
[2022-06-29 13:40] LABS: PERCENT SATURATION 6.9 % (13.2-45.0)
[2022-06-29 13:43] LABS: FERRITIN 17.2 NG/ML (7.3-270.7)
== END ==
LOC: SKLAB5 12:14
PROVIDERS: ATTEND Internal Medicine
DX: I73.9 Peripheral vascular disease, unspecified (principal); I50.9 Heart failure, unspecified; D64.9 Anemia, unspecified

== ENCOUNTER → 2022-08-31 | Outpatient (REF) | payer MEDICARE, MEDICAID ==
[2022-08-31 10:38] LABS: HEMATOCRIT 42.7 % (36.0-47.0); MEAN CORPUSCULAR HEMOGLOBIN 28.7 pg (27.0-33.0); MEAN CORPUSCULAR HGB CONC 30.4 g/dl (32.0-36.5); MEAN CORPUSCULAR VOLUME 94.3 fl (80.0-96.0); PLATELET COUNT, AUTOMATED 325 10^3/uL (150-450); RED BLOOD COUNT 4.53 10^6/uL (4.00-5.40); WHITE BLOOD COUNT 4.7 10^3/uL (4.0-10.0)
[2022-08-31 11:16] LABS: BLOOD UREA NITROGEN 22 MG/DL (9-23); CALCIUM LEVEL 8.6 MG/DL (8.3-10.6); CARBON DIOXIDE LEVEL 31 MMOL/L (20-31); CHLORIDE LEVEL 103 MMOL/L (98-107); CREATININE FOR GFR 0.85 MG/DL (0.55-1.30); GLOMERULAR FILTRATION RATE > 60.0 (>32); GLUCOSE, FASTING 116 MG/DL (74-106); POTASSIUM SERUM 3.8 MMOL/L (3.5-5.1); SODIUM LEVEL 141 MMOL/L (136-145)
== END ==
LOC: SKLAB5 11:26
PROVIDERS: ATTEND Internal Medicine
DX: I50.9 Heart failure, unspecified (principal); D64.9 Anemia, unspecified

== ENCOUNTER → 2022-09-28 | Outpatient (REF) | payer MEDICARE, MEDICAID ==
[2022-09-28 09:06] LABS: ALBUMIN 2.9 G/DL (3.2-5.2); ALKALINE PHOSPHATASE 124 U/L (46-116); ALT/SGPT < 9 U/L (7.0-40); AST/SGOT 12 U/L (<34); BILIRUBIN,TOTAL 0.3 MG/DL (0.3-1.2); BLOOD UREA NITROGEN 22 MG/DL (9-23); CALCIUM LEVEL 8.3 MG/DL (8.3-10.6); CARBON DIOXIDE LEVEL 31 MMOL/L (20-31); CHLORIDE LEVEL 99 MMOL/L (98-107); CREATININE FOR GFR 0.76 MG/DL (0.55-1.30); GLOMERULAR FILTRATION RATE > 60.0 (>32); GLUCOSE, FASTING 120 MG/DL (74-106); POTASSIUM SERUM 3.7 MMOL/L (3.5-5.1); SODIUM LEVEL 137 MMOL/L (136-145); TOTAL PROTEIN 6.7 G/DL (5.7-8.2)
== END ==
LOC: SKLAB5 09:56
PROVIDERS: ATTEND Internal Medicine
DX: I50.9 Heart failure, unspecified (principal)

== ENCOUNTER → 2022-10-09 | Outpatient (REF) | payer MEDICARE, MEDICAID | LOC: SKLAB5 10:40 | PROVIDERS: ATTEND Internal Medicine | DX: M19.90 Unspecified osteoarthritis, unspecified site (principal) ==

== ENCOUNTER → 2022-10-23 | Outpatient (REF) | payer MEDICARE, MEDICAID | LOC: SKLAB5 09:52 | PROVIDERS: ATTEND Internal Medicine | DX: I50.9 Heart failure, unspecified (principal); I73.9 Peripheral vascular disease, unspecified ==

== ENCOUNTER → 2022-11-30 | Outpatient (REF) | payer MEDICARE, MEDICAID ==
[~2022-11-30] MED LIST changes: -GABA-283 PO; +GABA-284 PO; +LORA-1041 PO; -LORA-674 PO
[2022-11-30 07:07] LABS: HEMATOCRIT 34.5 % (36.0-47.0); HEMOGLOBIN 10.8 g/dl (12.0-15.5); MEAN CORPUSCULAR HGB CONC 31.3 g/dl (32.0-36.5); MEAN CORPUSCULAR VOLUME 92.7 fl (80.0-96.0); PLATELET COUNT, AUTOMATED 314 10^3/uL (150-450); RED BLOOD COUNT 3.72 10^6/uL (4.00-5.40); WHITE BLOOD COUNT 6.6 10^3/uL (4.0-10.0)
[2022-11-30 07:21] LABS: BLOOD UREA NITROGEN 19 MG/DL (9-23); CALCIUM LEVEL 8.5 MG/DL (8.3-10.6); CARBON DIOXIDE LEVEL 33 MMOL/L (20-31); CHLORIDE LEVEL 102 MMOL/L (98-107); CREATININE FOR GFR 0.74 MG/DL (0.55-1.30); GLOMERULAR FILTRATION RATE > 60.0 (>32); GLUCOSE, FASTING 96 MG/DL (74-106); POTASSIUM SERUM 3.7 MMOL/L (3.5-5.1); SODIUM LEVEL 142 MMOL/L (136-145)
== END ==
LOC: SKLAB5 06:13
PROVIDERS: ATTEND Internal Medicine
DX: I50.9 Heart failure, unspecified (principal)

== ENCOUNTER → 2022-12-26 | Outpatient (REF) | payer MEDICARE, MEDICAID ==
[2022-12-26 07:58] LABS: HEMATOCRIT 42.8 % (36.0-47.0); HEMOGLOBIN 12.8 g/dl (12.0-15.5); MEAN CORPUSCULAR HEMOGLOBIN 28.4 pg (27.0-33.0); MEAN CORPUSCULAR HGB CONC 29.9 g/dl (32.0-36.5); MEAN CORPUSCULAR VOLUME 94.9 fl (80.0-96.0); PLATELET COUNT, AUTOMATED 342 10^3/uL (150-450); RED BLOOD COUNT 4.51 10^6/uL (4.00-5.40); WHITE BLOOD COUNT 6.7 10^3/uL (4.0-10.0)
[2022-12-26 08:23] LABS: BLOOD UREA NITROGEN 28 MG/DL (9-23); CALCIUM LEVEL 8.9 MG/DL (8.3-10.6); CARBON DIOXIDE LEVEL 37 MMOL/L (20-31); CHLORIDE LEVEL 96 MMOL/L (98-107); CREATININE FOR GFR 0.81 MG/DL (0.55-1.30); GLOMERULAR FILTRATION RATE > 60.0 (>32); GLUCOSE, FASTING 130 MG/DL (74-106); POTASSIUM SERUM 3.2 MMOL/L (3.5-5.1); SODIUM LEVEL 142 MMOL/L (136-145)
== END ==
LOC: SKLAB5 08:32
PROVIDERS: ATTEND Internal Medicine
DX: Z51.81 Encounter for therapeutic drug level monitoring (principal); Z79.52 Long term (current) use of systemic steroids

== ENCOUNTER → 2022-12-28 | Outpatient (REF) | payer MEDICARE, MEDICAID | LOC: SKLAB5 08:51 | PROVIDERS: ATTEND Internal Medicine | DX: I50.9 Heart failure, unspecified (principal); Z53.8 Procedure and treatment not carried out for other reasons ==

== ENCOUNTER → 2023-01-01 | Outpatient (REF) | payer MEDICARE, MEDICAID ==
[2023-01-01 09:18] LABS: BLOOD UREA NITROGEN 29 MG/DL (9-23); CALCIUM LEVEL 8.8 MG/DL (8.3-10.6); CARBON DIOXIDE LEVEL 36 MMOL/L (20-31); CHLORIDE LEVEL 97 MMOL/L (98-107); CREATININE FOR GFR 0.73 MG/DL (0.55-1.30); GLOMERULAR FILTRATION RATE > 60.0 (>32); GLUCOSE, FASTING 91 MG/DL (74-106); POTASSIUM SERUM 4.1 MMOL/L (3.5-5.1); SODIUM LEVEL 140 MMOL/L (136-145)
== END ==
LOC: SKLAB5 07:47
PROVIDERS: ATTEND Internal Medicine
DX: E87.6 Hypokalemia (principal)

== ENCOUNTER → 2023-02-01 | Outpatient (REF) | payer MEDICARE, MEDICAID | LOC: SKLAB5 07:00 | PROVIDERS: ATTEND Internal Medicine | DX: I50.9 Heart failure, unspecified (principal) ==

== ENCOUNTER → 2023-02-11 | Outpatient (REF) | payer MEDICARE, MEDICAID ==
[2023-02-11 09:58] LABS: BLOOD UREA NITROGEN 24 MG/DL (9-23); CARBON DIOXIDE LEVEL 32 MMOL/L (20-31); CHLORIDE LEVEL 98 MMOL/L (98-107); CREATININE FOR GFR 0.65 MG/DL (0.55-1.30); GLOMERULAR FILTRATION RATE > 60.0 (>32); GLUCOSE, FASTING 112 MG/DL (74-106); POTASSIUM SERUM 3.8 MMOL/L (3.5-5.1); SODIUM LEVEL 141 MMOL/L (136-145)
== END ==
LOC: SKLAB5 08:37
PROVIDERS: ATTEND Nurse Practitioner Adult Health
DX: I50.9 Heart failure, unspecified (principal)

== ENCOUNTER → 2023-03-29 | Outpatient (REF) | payer MEDICARE, MEDICAID ==
[2023-03-29 07:35] LABS: HEMATOCRIT 42.2 % (36.0-47.0); HEMOGLOBIN 12.9 g/dl (12.0-15.5); MEAN CORPUSCULAR HEMOGLOBIN 28.4 pg (27.0-33.0); MEAN CORPUSCULAR HGB CONC 30.6 g/dl (32.0-36.5); PLATELET COUNT, AUTOMATED 400 10^3/uL (150-450); RED BLOOD COUNT 4.54 10^6/uL (4.00-5.40); WHITE BLOOD COUNT 8.3 10^3/uL (4.0-10.0)
[2023-03-29 08:08] LABS: BLOOD UREA NITROGEN 28 MG/DL (9-23); CALCIUM LEVEL 9.4 MG/DL (8.3-10.6); CARBON DIOXIDE LEVEL 38 MMOL/L (20-31); CHLORIDE LEVEL 96 MMOL/L (98-107); CREATININE FOR GFR 0.74 MG/DL (0.55-1.30); GLOMERULAR FILTRATION RATE > 60.0 (>32); GLUCOSE, FASTING 108 MG/DL (74-106); POTASSIUM SERUM 3.7 MMOL/L (3.5-5.1); SODIUM LEVEL 140 MMOL/L (136-145)
== END ==
LOC: SKLAB5 10:46
PROVIDERS: ATTEND Nurse Practitioner Adult Health
DX: I50.9 Heart failure, unspecified (principal)

== ENCOUNTER → 2023-05-06 | Outpatient (REF) | payer MEDICARE, MEDICAID | LOC: SKLAB5 10:47 | PROVIDERS: ATTEND Nurse Practitioner Family | DX: R05.9 Cough, unspecified (principal); R06.2 Wheezing; M12.811 Other specific arthropathies, not elsewhere classified, right shoulder ==

== ENCOUNTER → 2023-05-06 | Outpatient (REF) | payer MEDICARE, MEDICAID | LOC: SKLAB5 10:48 | PROVIDERS: ATTEND Nurse Practitioner Family | DX: R06.2 Wheezing (principal); M12.811 Other specific arthropathies, not elsewhere classified, right shoulder ==

== ENCOUNTER → 2023-05-07 | Outpatient (REF) | payer MEDICARE, MEDICAID ==
[2023-05-07 07:59] LABS: BLOOD UREA NITROGEN 20 MG/DL (9-23); CALCIUM LEVEL 8.9 MG/DL (8.3-10.6); CARBON DIOXIDE LEVEL 33 MMOL/L (20-31); CHLORIDE LEVEL 100 MMOL/L (98-107); CREATININE FOR GFR 0.76 MG/DL (0.55-1.30); GLOMERULAR FILTRATION RATE > 60.0 (>32); GLUCOSE, FASTING 93 MG/DL (74-106); SODIUM LEVEL 140 MMOL/L (136-145)
[2023-05-07 08:01] LABS: BASO # 0.1 10^3/uL (0.0-0.2); BASO % 0.7 % (0.0-1.0); EOS # 0.4 10^3/uL (0.0-0.5); EOS % 4.8 % (0.0-3.0); HEMATOCRIT 43.4 % (36.0-47.0); HEMOGLOBIN 13.3 g/dl (12.0-15.5); LYMPH # 0.8 10^3/uL (1.5-5.0); LYMPH % 10.5 % (24.0-44.0); MEAN CORPUSCULAR HGB CONC 30.6 g/dl (32.0-36.5); MEAN CORPUSCULAR VOLUME 94.6 fl (80.0-96.0); MONO # 0.6 10^3/uL (0.0-0.8); MONO % 8.3 % (2.0-8.0); NEUTROPHILS # 5.6 10^3/uL (1.5-8.5); NEUTROPHILS % 75.3 % (36.0-66.0); PLATELET COUNT, AUTOMATED 321 10^3/uL (150-450); RED BLOOD COUNT 4.59 10^6/uL (4.00-5.40); WHITE BLOOD COUNT 7.4 10^3/uL (4.0-10.0)
== END ==
LOC: SKLAB5 08:28
PROVIDERS: ATTEND Nurse Practitioner Family
DX: I50.9 Heart failure, unspecified (principal)

== ENCOUNTER → 2023-05-31 | Outpatient (REF) | payer MEDICARE, MEDICAID | LOC: SKLAB5 11:10 | PROVIDERS: ATTEND Internal Medicine | DX: I50.9 Heart failure, unspecified (principal) ==

== ENCOUNTER → 2023-07-02 | Outpatient (REF) | payer MEDICARE, MEDICAID | LOC: SKLAB5 11:08 | PROVIDERS: ATTEND Nurse Practitioner Family | DX: I50.9 Heart failure, unspecified (principal); Z53.8 Procedure and treatment not carried out for other reasons ==

== ENCOUNTER → 2023-07-11 | Outpatient (REF) | payer MEDICARE, MEDICAID ==
[2023-07-11 08:22] LABS: HEMATOCRIT 39.2 % (36.0-47.0); HEMOGLOBIN 11.7 g/dl (12.0-15.5); MEAN CORPUSCULAR HEMOGLOBIN 28.4 pg (27.0-33.0); MEAN CORPUSCULAR HGB CONC 29.8 g/dl (32.0-36.5); MEAN CORPUSCULAR VOLUME 95.1 fl (80.0-96.0); PLATELET COUNT, AUTOMATED 375 10^3/uL (150-450); RED BLOOD COUNT 4.12 10^6/uL (4.00-5.40); WHITE BLOOD COUNT 9.4 10^3/uL (4.0-10.0)
[2023-07-11 08:38] LABS: BLOOD UREA NITROGEN 19 MG/DL (9-23); CALCIUM LEVEL 8.5 MG/DL (8.3-10.6); CARBON DIOXIDE LEVEL 29 MMOL/L (20-31); CHLORIDE LEVEL 101 MMOL/L (98-107); CREATININE FOR GFR 0.66 MG/DL (0.55-1.30); GLOMERULAR FILTRATION RATE > 60.0 (>32); GLUCOSE, FASTING 83 MG/DL (74-106); POTASSIUM SERUM 4.4 MMOL/L (3.5-5.1); SODIUM LEVEL 140 MMOL/L (136-145)
== END ==
LOC: SKLAB5 10:09
PROVIDERS: ATTEND Nurse Practitioner Adult Health
DX: I50.9 Heart failure, unspecified (principal)

== ENCOUNTER → 2023-08-02 | Outpatient (REF) ==
[2023-08-02 12:49] LABS: HEMATOCRIT 34.9 % (36.0-47.0); HEMOGLOBIN 10.5 g/dl (12.0-15.5); MEAN CORPUSCULAR HEMOGLOBIN 28.3 pg (27.0-33.0); MEAN CORPUSCULAR HGB CONC 30.1 g/dl (32.0-36.5); MEAN CORPUSCULAR VOLUME 94.1 fl (80.0-96.0); PLATELET COUNT, AUTOMATED 372 10^3/uL (150-450); RED BLOOD COUNT 3.71 10^6/uL (4.00-5.40); WHITE BLOOD COUNT 7.3 10^3/uL (4.0-10.0)
[2023-08-02 13:15] LABS: ALBUMIN 2.5 G/DL (3.2-5.2); ALKALINE PHOSPHATASE 96 U/L (46-116); ALT/SGPT < 9 U/L (7.0-40); AST/SGOT < 8 U/L (<34); BILIRUBIN,TOTAL 0.3 MG/DL (0.3-1.2); BLOOD UREA NITROGEN 24 MG/DL (9-23); CALCIUM LEVEL 8.7 MG/DL (8.3-10.6); CARBON DIOXIDE LEVEL 34 MMOL/L (20-31); CHLORIDE LEVEL 100 MMOL/L (98-107); CREATININE FOR GFR 0.85 MG/DL (0.55-1.30); GLOMERULAR FILTRATION RATE > 60.0 (>32); GLUCOSE, FASTING 130 MG/DL (74-106); POTASSIUM SERUM 3.4 MMOL/L (3.5-5.1); SODIUM LEVEL 139 MMOL/L (136-145)
== END ==
LOC: SKLAB5 08-01 15:21
PROVIDERS: ATTEND Internal Medicine
DX: I10 Essential (primary) hypertension (principal)

== ENCOUNTER → 2023-10-01 | Outpatient (REF) | payer MEDICARE, MEDICAID | LOC: SKLAB5 07:00 | PROVIDERS: ATTEND Internal Medicine | DX: Z53.8 Procedure and treatment not carried out for other reasons (principal) ==

== ENCOUNTER → 2023-10-29 | Outpatient (REF) | payer MEDICARE, MEDICAID ==
[2023-10-29 15:48] LABS: HEMATOCRIT 39.1 % (36.0-47.0); HEMOGLOBIN 11.9 g/dl (12.0-15.5); MEAN CORPUSCULAR HEMOGLOBIN 27.7 pg (27.0-33.0); MEAN CORPUSCULAR HGB CONC 30.4 g/dl (32.0-36.5); MEAN CORPUSCULAR VOLUME 91.1 fl (80.0-96.0); PLATELET COUNT, AUTOMATED 376 10^3/uL (150-450); RED BLOOD COUNT 4.29 10^6/uL (4.00-5.40)
== END ==
LOC: SKLAB5 10:32
PROVIDERS: ATTEND Internal Medicine
DX: I50.9 Heart failure, unspecified (principal)

== ENCOUNTER → 2023-11-19 | Outpatient (REF) | payer MEDICARE, MEDICAID ==
[2023-11-19 20:26] LABS: HEMATOCRIT 38.7 % (36.0-47.0); HEMOGLOBIN 11.7 g/dl (12.0-15.5); MEAN CORPUSCULAR HEMOGLOBIN 27.1 pg (27.0-33.0); MEAN CORPUSCULAR HGB CONC 30.2 g/dl (32.0-36.5); MEAN CORPUSCULAR VOLUME 89.6 fl (80.0-96.0); PLATELET COUNT, AUTOMATED 480 10^3/uL (150-450); RED BLOOD COUNT 4.32 10^6/uL (4.00-5.40); WHITE BLOOD COUNT 11.7 10^3/uL (4.0-10.0)
[2023-11-19 20:51] LABS: BLOOD UREA NITROGEN 19 MG/DL (9-23); CALCIUM LEVEL 8.9 MG/DL (8.3-10.6); CARBON DIOXIDE LEVEL 35 MMOL/L (20-31); CHLORIDE LEVEL 96 MMOL/L (98-107); CREATININE FOR GFR 0.77 MG/DL (0.55-1.30); GLOMERULAR FILTRATION RATE > 60.0 (>32); GLUCOSE, FASTING 122 MG/DL (74-106); SODIUM LEVEL 137 MMOL/L (136-145)
== END ==
LOC: SKLAB5 15:46
PROVIDERS: ATTEND Internal Medicine
DX: U07.1 COVID-19 (principal); Z79.899 Other long term (current) drug therapy

== ENCOUNTER → 2023-12-31 | Outpatient (REF) | payer MEDICARE, MEDICAID ==
[2023-12-31 14:57] LABS: BLOOD UREA NITROGEN 15 MG/DL (9-23); CALCIUM LEVEL 9.6 MG/DL (8.3-10.6); CARBON DIOXIDE LEVEL 35 MMOL/L (20-31); CHLORIDE LEVEL 96 MMOL/L (98-107); CREATININE FOR GFR 0.81 MG/DL (0.55-1.30); GLOMERULAR FILTRATION RATE > 60.0 (>32); GLUCOSE, FASTING 144 MG/DL (74-106); POTASSIUM SERUM 3.9 MMOL/L (3.5-5.1); SODIUM LEVEL 135 MMOL/L (136-145)
== END ==
LOC: SKLAB5 07:00
PROVIDERS: ATTEND Internal Medicine
DX: I50.9 Heart failure, unspecified (principal)

== ENCOUNTER → 2024-01-20 | Outpatient (REF) | payer MEDICARE, MEDICAID ==
[2024-01-20 15:11] LABS: BASO % 0.2 % (0.0-1.0); EOS % 0.1 % (0.0-3.0); HEMATOCRIT 36.2 % (36.0-47.0); LYMPH # 0.7 10^3/uL (1.5-5.0); LYMPH % 5.2 % (24.0-44.0); MEAN CORPUSCULAR HGB CONC 30.4 g/dl (32.0-36.5); MEAN CORPUSCULAR VOLUME 88.7 fl (80.0-96.0); MONO # 0.6 10^3/uL (0.0-0.8); MONO % 4.9 % (2.0-8.0); NEUTROPHILS # 11.2 10^3/uL (1.5-8.5); NEUTROPHILS % 89.2 % (36.0-66.0); PLATELET COUNT, AUTOMATED 361 10^3/uL (150-450); RED BLOOD COUNT 4.08 10^6/uL (4.00-5.40); WHITE BLOOD COUNT 12.5 10^3/uL (4.0-10.0)
[2024-01-20 15:54] LABS: BLOOD UREA NITROGEN 17 MG/DL (9-23); CALCIUM LEVEL 9.1 MG/DL (8.3-10.6); CARBON DIOXIDE LEVEL 34 MMOL/L (20-31); CHLORIDE LEVEL 89 MMOL/L (98-107); CREATININE FOR GFR 0.83 MG/DL (0.55-1.30); GLOMERULAR FILTRATION RATE > 60.0 (>32); GLUCOSE, FASTING 128 MG/DL (74-106); POTASSIUM SERUM 3.4 MMOL/L (3.5-5.1); SODIUM LEVEL 130 MMOL/L (136-145)
== END ==
LOC: SKLAB5 14:09
PROVIDERS: ATTEND Internal Medicine
DX: I50.9 Heart failure, unspecified (principal); R22.32 Localized swelling, mass and lump, left upper limb; M19.042 Primary osteoarthritis, left hand

== ENCOUNTER → 2024-04-17 | Outpatient (REF) | payer MEDICARE, MEDICAID ==
[2024-04-17 10:26] LABS: HEMATOCRIT 32.4 % (36.0-47.0); HEMOGLOBIN 9.6 g/dl (12.0-15.5); MEAN CORPUSCULAR HEMOGLOBIN 26.7 pg (27.0-33.0); MEAN CORPUSCULAR HGB CONC 29.6 g/dl (32.0-36.5); MEAN CORPUSCULAR VOLUME 90.3 fl (80.0-96.0); PLATELET COUNT, AUTOMATED 425 10^3/uL (150-450); RED BLOOD COUNT 3.59 10^6/uL (4.00-5.40); WHITE BLOOD COUNT 10.3 10^3/uL (4.0-10.0)
[2024-04-17 10:55] LABS: BLOOD UREA NITROGEN 14 MG/DL (9-23); CALCIUM LEVEL 8.7 MG/DL (8.3-10.6); CARBON DIOXIDE LEVEL 27 MMOL/L (20-31); CHLORIDE LEVEL 99 MMOL/L (98-107); CREATININE FOR GFR 0.73 MG/DL (0.55-1.30); GLOMERULAR FILTRATION RATE > 60.0 (>32); GLUCOSE, FASTING 121 MG/DL (74-106); POTASSIUM SERUM 4.2 MMOL/L (3.5-5.1); SODIUM LEVEL 136 MMOL/L (136-145)
== END ==
LOC: SKLAB5 07:00
PROVIDERS: ATTEND Internal Medicine
DX: I50.9 Heart failure, unspecified (principal)

== ENCOUNTER → 2024-05-08 | Outpatient (REF) | payer MEDICARE, MEDICAID ==
[2024-05-08 08:07] LABS: BASO % 0.4 % (0.0-1.0); EOS # 0.2 10^3/uL (0.0-0.5); EOS % 2.1 % (0.0-3.0); HEMATOCRIT 32.2 % (36.0-47.0); HEMOGLOBIN 9.8 g/dl (12.0-15.5); LYMPH # 1.5 10^3/uL (1.5-5.0); LYMPH % 16.1 % (24.0-44.0); MEAN CORPUSCULAR HEMOGLOBIN 26.6 pg (27.0-33.0); MEAN CORPUSCULAR HGB CONC 30.4 g/dl (32.0-36.5); MEAN CORPUSCULAR VOLUME 87.3 fl (80.0-96.0); MONO # 0.5 10^3/uL (0.0-0.8); MONO % 5.9 % (2.0-8.0); NEUTROPHILS # 6.9 10^3/uL (1.5-8.5); NEUTROPHILS % 75.2 % (36.0-66.0); PLATELET COUNT, AUTOMATED 456 10^3/uL (150-450); RED BLOOD COUNT 3.69 10^6/uL (4.00-5.40); WHITE BLOOD COUNT 9.2 10^3/uL (4.0-10.0)
[2024-05-08 08:42] LABS: ALBUMIN 2.6 G/DL (3.2-5.2); ALKALINE PHOSPHATASE 109 U/L (35-104); ALT/SGPT < 9 U/L (7.0-40); AST/SGOT 11 U/L (<34); BILIRUBIN,TOTAL 0.3 MG/DL (0.3-1.2); BLOOD UREA NITROGEN 17 MG/DL (9-23); CALCIUM LEVEL 8.8 MG/DL (8.3-10.6); CARBON DIOXIDE LEVEL 32 MMOL/L (20-31); CHLORIDE LEVEL 99 MMOL/L (98-107); GLOMERULAR FILTRATION RATE > 60.0 (>32); GLUCOSE, FASTING 95 MG/DL (74-106); POTASSIUM SERUM 3.9 MMOL/L (3.5-5.1); SODIUM LEVEL 137 MMOL/L (136-145); TOTAL PROTEIN 6.5 G/DL (5.7-8.2)
[2024-05-08 08:46] LABS: THYROID STIMULATING HORMONE 2.171 uIU/ML (0.55-4.78); THYROXINE (T4) 8.6 UG/DL (4.5-10.9)
== END ==
LOC: SKLAB5 07:25
PROVIDERS: ATTEND Internal Medicine
DX: I10 Essential (primary) hypertension (principal); F41.9 Anxiety disorder, unspecified

== ENCOUNTER → 2024-06-11 | Outpatient (REF) | payer MEDICARE, MEDICAID | LOC: SKLAB5 11:57 | PROVIDERS: ATTEND Internal Medicine | DX: J02.9 Acute pharyngitis, unspecified (principal); R09.89 Other specified symptoms and signs involving the circulatory and respiratory systems ==

== ENCOUNTER → 2024-08-13 | Outpatient (REF) | payer MEDICARE, MEDICAID ==
[2024-08-13 06:07] LABS: MEAN CORPUSCULAR HEMOGLOBIN 25.4 pg (27.0-33.0); MEAN CORPUSCULAR HGB CONC 29.6 g/dl (32.0-36.5); MEAN CORPUSCULAR VOLUME 85.7 fl (80.0-96.0); PLATELET COUNT, AUTOMATED 426 10^3/uL (150-450); RED BLOOD COUNT 3.15 10^6/uL (4.00-5.40); WHITE BLOOD COUNT 9.1 10^3/uL (4.0-10.0)
[2024-08-13 06:44] LABS: ALBUMIN 2.2 G/DL (3.2-5.2); ALKALINE PHOSPHATASE 89 U/L (35-104); ALT/SGPT < 9 U/L (7.0-40); AST/SGOT < 8 U/L (<34); BILIRUBIN,TOTAL 0.5 MG/DL (0.3-1.2); BLOOD UREA NITROGEN 19 MG/DL (9-23); CALCIUM LEVEL 8.1 MG/DL (8.3-10.6); CARBON DIOXIDE LEVEL 32 MMOL/L (20-31); CHLORIDE LEVEL 97 MMOL/L (98-107); CREATININE FOR GFR 0.73 MG/DL (0.55-1.30); GLOMERULAR FILTRATION RATE 79.1 (>32); GLUCOSE, FASTING 80 MG/DL (74-106); POTASSIUM SERUM 3.5 MMOL/L (3.5-5.1); SODIUM LEVEL 137 MMOL/L (136-145); TOTAL PROTEIN 5.5 G/DL (5.7-8.2)
== END ==
LOC: SKLAB5 07:00
PROVIDERS: ATTEND Internal Medicine
DX: E87.6 Hypokalemia (principal)

== ENCOUNTER → 2024-08-14 | Outpatient (REF) | payer MEDICARE, MEDICAID ==
[2024-08-14 11:28] LABS: PERCENT SATURATION 3.8 % (13.2-45.0)
[2024-08-14 11:30] LABS: FERRITIN 30.3 NG/ML (7.3-270.7)
== END ==
LOC: SKLAB5 09:55
PROVIDERS: ATTEND Internal Medicine
DX: D64.9 Anemia, unspecified (principal)

== ENCOUNTER → 2024-11-11 | Outpatient (REF) | payer MEDICARE, MEDICAID ==
[2024-11-11 10:26] LABS: PLATELET COUNT, AUTOMATED 436 10^3/uL (150-450)
[2024-11-11 10:50] LABS: CALCIUM LEVEL 8.4 MG/DL (8.3-10.6); CARBON DIOXIDE LEVEL 32.0 MMOL/L (20-31); CHLORIDE LEVEL 95.0 MMOL/L (98-107); CREATININE FOR GFR 0.75 MG/DL (0.55-1.30); GLOMERULAR FILTRATION RATE 76.5 (>32); POTASSIUM SERUM 3.7 MMOL/L (3.5-5.1); SODIUM LEVEL 138.0 MMOL/L (136-145)
== END ==
LOC: SKLAB5 09:53
PROVIDERS: ATTEND Internal Medicine
DX: J18.9 Pneumonia, unspecified organism (principal); I27.89 Other specified pulmonary heart diseases

== ENCOUNTER → 2024-11-19 | Outpatient (REF) | payer MEDICARE, MEDICAID ==
[2024-11-19 10:16] LABS: CALCIUM LEVEL 8.0 MG/DL (8.3-10.6); CARBON DIOXIDE LEVEL 32.0 MMOL/L (20-31); CHLORIDE LEVEL 96.0 MMOL/L (98-107); CREATININE FOR GFR 0.74 MG/DL (0.55-1.30); GLOMERULAR FILTRATION RATE 77.8 (>32); POTASSIUM SERUM 3.7 MMOL/L (3.5-5.1); SODIUM LEVEL 140.0 MMOL/L (136-145)
== END ==
LOC: SKLAB5 07:00
PROVIDERS: ATTEND Internal Medicine
DX: I50.9 Heart failure, unspecified (principal)

== ENCOUNTER → 2024-12-10 | Outpatient (REF) | payer MEDICARE, MEDICAID ==
[2024-12-10 09:32] LABS: PLATELET COUNT, AUTOMATED 426 10^3/uL (150-450)
[2024-12-10 09:55] LABS: CALCIUM LEVEL 8.4 MG/DL (8.3-10.6); CARBON DIOXIDE LEVEL 34.0 MMOL/L (20-31); CHLORIDE LEVEL 90.0 MMOL/L (98-107); CREATININE FOR GFR 0.66 MG/DL (0.55-1.30); GLOMERULAR FILTRATION RATE 84.3 (>32); POTASSIUM SERUM 3.0 MMOL/L (3.5-5.1); SODIUM LEVEL 136.0 MMOL/L (136-145)
== END ==
LOC: SKLAB5 07:00
PROVIDERS: ATTEND Internal Medicine
DX: I50.9 Heart failure, unspecified (principal)

== ENCOUNTER → 2024-12-25 | Outpatient (REF) | payer MEDICARE, MEDICAID ==
[2024-12-25 12:37] LABS: CALCIUM LEVEL 9.1 MG/DL (8.3-10.6); CARBON DIOXIDE LEVEL 33.0 MMOL/L (20-31); CHLORIDE LEVEL 96.0 MMOL/L (98-107); CREATININE FOR GFR 0.77 MG/DL (0.55-1.30); GLOMERULAR FILTRATION RATE 73.7 (>32); MAGNESIUM LEVEL 2.0 MG/DL (1.8-2.4); POTASSIUM SERUM 3.8 MMOL/L (3.5-5.1); SODIUM LEVEL 139.0 MMOL/L (136-145)
== END ==
LOC: SKLAB5 08:39
PROVIDERS: ATTEND Internal Medicine
DX: E87.5 Hyperkalemia (principal); I50.9 Heart failure, unspecified

== ENCOUNTER → 2025-04-06 | Outpatient (REF) | payer MEDICARE, MEDICAID ==
[2025-04-06 09:50] LABS: CALCIUM LEVEL 9.2 MG/DL (8.3-10.6); CARBON DIOXIDE LEVEL 35.0 MMOL/L (20-31); CHLORIDE LEVEL 91.0 MMOL/L (98-107); CREATININE FOR GFR 0.74 MG/DL (0.55-1.30); GLOMERULAR FILTRATION RATE 77.3 (>32); POTASSIUM SERUM 3.3 MMOL/L (3.5-5.1); SODIUM LEVEL 138.0 MMOL/L (136-145)
== END ==
LOC: SKLAB5 07:00
PROVIDERS: ATTEND Internal Medicine
DX: E87.5 Hyperkalemia (principal)